=== PATIENT | male | born 1985 | race Two or more races ===

== ENCOUNTER 2022-02-05 08:57 | Inpatient (IN) | payer MEDICAID, OTHER ==
[~2022-02-05] VITALS: Ht 170.2 cm; Wt 59.0 kg
[2022-02-05] MEDS ORDERED: chlordiazePOXIDE HCL 5 MG CAP PO ONE (09:15)
[2022-02-05] MEDS ORDERED: THIAMINE 100mg/ml INJ (200mg/2ml VIAL) IV ONE (09:15)
[2022-02-05] MEDS ORDERED: SODIUM CHLORIDE 0.9% 1,000 ML IV ONE ×2 (09:15)
[2022-02-05 09:45] LABS: Basophils # (auto) 0.1 10 ^3/uL (0-0.2); Eosinophils # (auto) 0 10 ^3/uL (0-0.8); Eosinophils % (auto) 0.2 % (0.0-7.0); Hematocrit 47.3 % (41.0-53.0); Hemoglobin 16.1 g/dL (13.5-17.5); Lymphocytes % (auto) 18.1 % (10.0-50.0); Mean Corpuscular Hemoglobin 32.3 pg (28.0-32.0); Monocytes # (auto) 0.6 10 ^3/uL (0-1.3); Monocytes % (auto) 11.5 % (0.0-12.0); Neutrophils # (auto) 3.8 10 ^3/uL (1.6-8.6); Neutrophils % (auto) 69.2 % (37.0-80.0); Nucleated Red Blood Cells % 0.2 %; Red Blood Cells 4.98 10^6/uL (4.5-5.90); Red Cell Distribution Width 14.2 % (11.8-14.3); White Blood Cell 5.5 10^3/uL (4.4-10.8)
[2022-02-05 09:48] LABS: Urine Bacteria FEW /hpf (None Seen); Urine Blood Negative /uL (Negative); Urine Mucus MODERATE (None Seen); Urine Specific Gravity 1.035 (1.001-1.035); Urine WBC 1 /hpf (0 - 3)
[2022-02-05 10:02] LABS: Bilirubin, Total 4.2 mg/dL (0.2-1.0); Total Protein 7.8 g/dL (6.4-8.2)
[2022-02-05] MEDS ORDERED: METOCLOPRAMIDE HCL 5MG/ml INJ 2ml VIAL IV PRN (16:15)
[2022-02-05] MEDS ORDERED: ONDANSETRON HCL 4 MG/2 ML VIAL IV PRN (16:15)
[2022-02-05] MEDS ORDERED: THIAMINE HCL 100 MG TAB PO ONE (16:15)
[2022-02-05] MEDS ORDERED: FOLIC ACID 1 MG TAB PO ONE (16:15)
[2022-02-05] MEDS ORDERED: ACETAMINOPHEN 325 MG TAB PO PRN (16:15)
[2022-02-05] MEDS ORDERED: DOCUSATE SOD 100 MG CAP PO PRN (16:15)
[2022-02-05] MEDS ORDERED: HYDROcodone-ACET 5/325MG TAB PO PRN (16:15)
[2022-02-05] MEDS ORDERED: GADOTERATE MEG 7.5 MMOL/15ml INJ (0.5MMOL/ml) IV ONE (16:41)
[2022-02-05] MEDS: chlordiazePOXIDE HCL 25 MG CAP PO SCH (17:04)
[2022-02-05] MEDS: SODIUM CHLOR 0.9% PF (SALINE LOCK) 10ML VIAL/SYR IV SCH (23:27)
[2022-02-05] MEDS: PANTOPRAZOLE 40 MG TAB PO SCH (23:29)
[2022-02-06] VITALS (9 sets, daily range): BP systolic 116–132; BP diastolic 85–93
[2022-02-06] MEDS: chlordiazePOXIDE HCL 25 MG CAP PO SCH ×4 (00:03→21:28)
[2022-02-06] MEDS ORDERED: GLIP5TAB12 PO (01:10)
[2022-02-06] MEDS: SODIUM CHLOR 0.9% PF (SALINE LOCK) 10ML VIAL/SYR IV SCH ×3 (05:16→21:28)
[2022-02-06 05:49] LABS: INR 1.25 (0.9-1.15)
[2022-02-06 05:54] LABS: Calcium 8.6 mg/dL (8.5-10.1); Potassium 3.8 mmol/L (3.5-5.1)
[2022-02-06 06:00] LABS: Albumin 3.3 g/dL (3.4-5.0); Bilirubin, Total 2.9 mg/dL (0.2-1.0); Total Protein 6.5 g/dL (6.4-8.2)
[2022-02-06] MEDS: PANCREATIC ENZYMES 4200 UNIT CAP PO SCH ×3 (08:48→18:47)
[2022-02-06] MEDS: PANTOPRAZOLE 40 MG TAB PO SCH ×2 (09:35→21:28)
[2022-02-06] MEDS ORDERED: MULTIPLE VITAMINS W/ MINERALS TAB PO ONE (10:30)
[2022-02-06] MEDS ORDERED: THIAMINE 100mg/ml INJ (200mg/2ml VIAL) IV ONE (10:30)
[2022-02-06] MEDS ORDERED: METOCLOPRAMIDE HCL 5MG/ml INJ 2ml VIAL IV PRN (10:30)
[2022-02-06] MEDS: SODIUM CHLORIDE 0.9% 1,000 ML IV SCH (11:43)
[2022-02-07] MEDS: SODIUM CHLORIDE 0.9% 1,000 ML IV SCH (01:28)
[2022-02-07 04:36] VITALS: BP 136/89
[2022-02-07 06:14] LABS: Basophils # (auto) 0 10 ^3/uL (0-0.2); Basophils % (auto) 0.9 % (0.0-2.0); Eosinophils # (auto) 0.1 10 ^3/uL (0-0.8); Eosinophils % (auto) 2.6 % (0.0-7.0); Hematocrit 41.2 % (41.0-53.0); Hemoglobin 13.8 g/dL (13.5-17.5); Lymphocytes # (auto) 1.5 10 ^3/uL (0.4-5.4); Lymphocytes % (auto) 33.8 % (10.0-50.0); Mean Corpuscular Hemoglobin 31.8 pg (28.0-32.0); Mean Corpuscular Hgb Conc. 33.5 g/dL (32.0-36.0); Mean Corpuscular Volume 94.9 fL (80.0-100.0); Monocytes # (auto) 0.5 10 ^3/uL (0-1.3); Monocytes % (auto) 10.7 % (0.0-12.0); Neutrophils # (auto) 2.3 10 ^3/uL (1.6-8.6); Red Blood Cells 4.34 10^6/uL (4.5-5.90); Red Cell Distribution Width 13.6 % (11.8-14.3); White Blood Cell 4.4 10^3/uL (4.4-10.8)
[2022-02-07 06:39] LABS: Albumin 3.1 g/dL (3.4-5.0); Calcium 8.2 mg/dL (8.5-10.1); Magnesium 1.7 mg/dL (1.6-2.6); Potassium 3.7 mmol/L (3.5-5.1)
[2022-02-07 06:43] LABS: BUN/Creatinine Ratio 8.1; Bilirubin, Total 1.9 mg/dL (0.2-1.0); Phosphorus 3.3 mg/dL (2.5-4.90)
[2022-02-07 08:00] VITALS: BP 128/95
[2022-02-07] MEDS: PANCREATIC ENZYMES 4200 UNIT CAP PO SCH ×2 (08:53→12:00)
[2022-02-07] MEDS ORDERED: MULTIPLE VITAMINS W/ MINERALS TAB PO SCH (10:00)
[2022-02-07] MEDS ORDERED: THIAMINE 100mg/ml INJ (200mg/2ml VIAL) IV SCH (10:00)
[2022-02-07] MEDS ORDERED: chlordiazePOXIDE HCL 25 MG CAP PO SCH (10:00)
[2022-02-07] MEDS: PANTOPRAZOLE 40 MG TAB PO SCH (10:43)
[2022-02-07] MEDS ORDERED: PANC1CAP PO (10:58)
[2022-02-07] MEDS ORDERED: GABA300C10 PO (10:58)
[2022-02-07] MEDS ORDERED: PANT40TA2 PO (10:58)
[2022-02-07] MEDS ORDERED: MULT-351 GT (10:58)
[2022-02-07] MEDS ORDERED: GABAPENTIN 300 MG CAP PO ONE (11:15)
[2022-02-07 12:00] VITALS: BP 125/91
[2022-02-07 12:44] VITALS: BP 125/81
[2022-02-08] MEDS ORDERED: chlordiazePOXIDE HCL 25 MG CAP PO SCH (07:00)
== END 2022-02-07 14:39 | disposition home or self-care (01) | DRG 282 ==
LOC: ER 08:57 → TELE 16:33 → TELE-CENTR 23:35
PROVIDERS: ADMIT Internal Medicine; ATTEND Internal Medicine
DX: K85.90 Acute pancreatitis without necrosis or infection, unspecified (principal); F10.231 Alcohol dependence with withdrawal delirium; K70.40 Alcoholic hepatic failure without coma; Z20.822 Contact with and (suspected) exposure to COVID-19; E11.9 Type 2 diabetes mellitus without complications; K86.1 Other chronic pancreatitis; K86.3 Pseudocyst of pancreas; K76.0 Fatty (change of) liver, not elsewhere classified; Z79.899 Other long term (current) drug therapy
CPT/HCPCS: 36415; 71045; 74176; 74183; 76705; 80053; 81001; 83036; 83690; 83735; 84100; 84484; 85025; 85610; 96361; 96374; 99291; G0378

== ENCOUNTER 2022-05-26 22:00 | Emergency (ER) | payer MEDICAID ==
[~2022-05-26] VITALS: Ht 170.2 cm; Wt 59.0 kg
[~2022-05-26 22:00] MED LIST: GABA300C10 PO; GLIP5TAB12 PO; MULT-351 GT; PANC1CAP PO; PANT40TA2 PO
[2022-05-27 01:40] VITALS: BP 127/88
== END 2022-05-27 01:40 | disposition home or self-care (01) ==
LOC: ER 22:04
DX: S06.0X0A Concussion without loss of consciousness, initial encounter (principal); E11.9 Type 2 diabetes mellitus without complications; Z79.899 Other long term (current) drug therapy; W18.39XA Other fall on same level, initial encounter; Y93.89 Activity, other specified; Y92.89 Other specified places as the place of occurrence of the external cause; Y99.8 Other external cause status

== ENCOUNTER 2023-03-19 10:42 | Emergency (ER) | payer MEDICAID ==
[~2023-03-19] VITALS: Ht 170.2 cm; Wt 65.0 kg
[~2023-03-19 10:42] MED LIST changes: +GABA-1250 PO; -GABA300C10 PO
[2023-03-19 11:19] LABS: Basophils # (auto) 0.1 10 ^3/uL (0-0.2); Basophils % (auto) 1.4 % (0.0-2.0); Eosinophils # (auto) 0 10 ^3/uL (0-0.8); Eosinophils % (auto) 0.2 % (0.0-7.0); Hematocrit 47.3 % (41.0-53.0); Hemoglobin 15.9 g/dL (13.5-17.5); Lymphocytes # (auto) 1.2 10 ^3/uL (0.4-5.4); Lymphocytes % (auto) 15.4 % (10.0-50.0); Mean Corpuscular Hemoglobin 32.2 pg (28.0-32.0); Mean Corpuscular Hgb Conc. 33.6 g/dL (32.0-36.0); Mean Corpuscular Volume 95.7 fL (80.0-100.0); Monocytes % (auto) 12.9 % (0.0-12.0); Neutrophils # (auto) 5.3 10 ^3/uL (1.6-8.6); Neutrophils % (auto) 70.1 % (37.0-80.0); Nucleated Red Blood Cells % 0.1 %; Red Blood Cells 4.94 10^6/uL (4.5-5.90); Red Cell Distribution Width 14.2 % (11.8-14.3); White Blood Cell 7.6 10^3/uL (4.4-10.8)
[2023-03-19 11:25] VITALS: PULSE 103; RESP 20; O2SAT 98
[2023-03-19 11:34] VITALS: TEMP 98.2
[2023-03-19 11:41] LABS: Anion Gap 8 (5-15); Blood Alcohol < 3.0 mg/dL (<10); Blood Urea Nitrogen 4 mg/dL (7-18); Carbon Dioxide 30 mmol/L (21-32); Chloride 97 mmol/L (98-107); Glucose 188 mg/dL (74-106); Sodium 135 mmol/L (136-145)
[2023-03-19 11:44] LABS: Alanine Aminotransferase 57 U/L (16-61); Alkaline Phosphatase 171 U/L (45-117); Aspartate Aminotransferase 115 U/L (15-37); BUN/Creatinine Ratio 4.1 (10.0-20.0); Bilirubin, Total 3.7 mg/dL (0.2-1.0); GFR African American 111 mL/min; GFR Non-African American 92 mL/min
[2023-03-19 12:10] LABS: Barbiturate Scree,Urine NEGATIVE (NEGATIVE); Benzodiazephine Screen, Urine NEGATIVE (NEGATIVE); Cannabinoid Screen, Urine POSITIVE (NEGATIVE); Cocaine Screen, Urine POSITIVE (NEGATIVE); Opiate Scree,Urine NEGATIVE (NEGATIVE); Urine Bacteria NONE SEEN /hpf (None Seen); Urine Blood Negative /uL (Negative); Urine Clarity Clear (Clear); Urine Color Yellow (Yellow); Urine Mucus FEW (None Seen); Urine Protein, UAD TRACE (Negative); Urine Specific Gravity 1.033 (1.001-1.035); Urine WBC 1 /hpf (0 - 3)
[2023-03-19] MEDS ORDERED: LORazepam 2MG/ML-1ML VIAL IV ONE (12:15)
[2023-03-19 12:17] LABS: Amphetamine Screen, Urine NEGATIVE (NEGATIVE); Phencyclidine Screen, Urine NEGATIVE (NEGATIVE)
[2023-03-19] MEDS ORDERED: FOLIC ACID 1 MG, MULTIPLE VITAMIN 10 ML, MAGNESIUM SULF SDV 50% 8 MEQ, THIAMINE INJ 100... INJ SCH ×5 (13:45)
[2023-03-19] MEDS ORDERED: POTASSIUM EFFERVESENT TAB 25 MEQ PO ONE (15:00)
[2023-03-19] MEDS ORDERED: THIA100T10 PO (17:33)
[2023-03-19] MEDS ORDERED: CHL25C PO (17:33)
[2023-03-19] MEDS ORDERED: B CO PO (17:33)
[2023-03-19] MEDS ORDERED: PANT1INJ3 IV ×2 (17:33)
[2023-03-19 17:42] VITALS: BP 127/97; PULSE 91; RESP 18; O2SAT 95
[2023-03-19] MEDS ORDERED: PANT40TA2 PO (17:48)
== END 2023-03-19 17:56 | disposition home or self-care (01) ==
LOC: ER 10:42
DX: F10.139 Alcohol abuse with withdrawal, unspecified (principal); F12.10 Cannabis abuse, uncomplicated; E11.65 Type 2 diabetes mellitus with hyperglycemia; K76.0 Fatty (change of) liver, not elsewhere classified; E87.6 Hypokalemia; Z79.899 Other long term (current) drug therapy
CPT/HCPCS: 36415; 80053; 80307; 80320; 81001; 83690; 85025; 93005; 96365; 96366; 96375; 99285; J2060; J3411; J3475; J7030

== ENCOUNTER 2024-09-23 08:21 | Inpatient (IN) | payer MEDICAID ==
[~2024-09-23] VITALS: Ht 172.7 cm; Wt 60.6 kg
[~2024-09-23 08:21] MED LIST changes: +B CO PO; +CHL25C PO; -GLIP5TAB12 PO; +GLIP5TAB21 PO; +THIA100T10 PO
[2024-09-23 09:27] LABS: Basophils # (auto) 0 10 ^3/uL (0-0.2); Basophils % (auto) 0.6 % (0.0-2.0); Eosinophils # (auto) 0 10 ^3/uL (0-0.8); Hematocrit 43.4 % (41.0-53.0); Hemoglobin 14.7 g/dL (13.5-17.5); Lymphocytes # (auto) 0.3 10 ^3/uL (0.4-5.4); Lymphocytes % (auto) 4.2 % (10.0-50.0); Mean Corpuscular Hemoglobin 31.3 pg (28.0-32.0); Mean Corpuscular Hgb Conc. 33.9 g/dL (32.0-36.0); Mean Corpuscular Volume 92.5 fL (80.0-100.0); Monocytes # (auto) 0.4 10 ^3/uL (0-1.3); Monocytes % (auto) 5.9 % (0.0-12.0); Neutrophils # (auto) 6.4 10 ^3/uL (1.6-8.6); Neutrophils % (auto) 89.3 % (37.0-80.0); Nucleated Red Blood Cells % 0.1 %; Platelet Count (auto) 69 10^3/uL (140-450); Red Blood Cells 4.69 10^6/uL (4.5-5.90); White Blood Cell 7.1 10^3/uL (4.4-10.8)
--- NOTE | 2024-09-23 09:28 | ED.PDOC ---
GI ASSESSMENT HPI Comments 38 y/o MGHADA presents to the ED for CC of abdominal pain. Patieny states he has been experiencing epigastric abdominal pain with associated symptoms of nausea and vomiting x1day. Patient relays, he is currently withdrawing from ETOH; last time consuming [id number]. Patient comments on, having being bitten by a dog x10 days ago to the left posterior thigh states "I want it checked out". Patient has a visible bruise to the left forearm and left eye. Patient denies fever, chills, sweats, or diarrhea. No other symptoms or modifying factors at this time. Chief Complaint: Abdominal Pain Time Seen by MD: 08:30 Primary Care Provider: LETICIA Reviewed Notes: Nurses Notes, Observatory Director Notes, Medications, Allergies Allergies: Coded Allergies: NO KNOWN ALLERGIES (Unverified , 02/05/22) Home Meds Active Scripts Pantoprazole Sodium Sesquihydr (Protonix) 40 Mg Tab, 40 MG PO DAILY for 30 Days, #30 TAB Prov:JONEL RASHID MD 03/19/23 Thiamine Hcl (VITAMIN B-1) 100 Mg Tb, 100 MG PO BIDAC for 60 Days, #120 TAB Prov:JONEL RASHID MD 03/19/23 B-Complex W/ L-Crjeci-D-Minera (Dialyvite 5000) 5,000 Mg Tab, 5000 MG PO DAILY for 60 Days, #60 TAB Prov:JONEL RASHID MD 03/19/23 Chlordiazepoxide Hcl (Librium) 25 Mg Cp, 25 MG PO TID for 10 Days, #30 CAP Prov:JONEL RASHID MD 03/19/23 Gabapentin (Gabapentin) 300 Mg Cap, 300 MG PO BID for 30 Days, #60 CAP 2 Refills Prov:VALENTINO MEIER MD 02/07/22 Pantoprazole Sodium Sesquihydr (Protonix) 40 Mg Tab, 40 MG PO DAILY for 30 Days, #30 TAB 3 Refills Prov:VALENTINO MEIER MD 02/07/22 Pancreatic Enzymes (Pancreaze 2600 Unit) 1 Cap Cap, 1 CAP PO TID for 30 Days, #90 CAP 3 Refills Prov:VALENTINO MIEER MD 02/07/22 Multiple Vitamins W/ Minerals (Mvi W/ Minerals Tab) 1 Tab Tb, 1 TAB GT DAILY for 30 Days, #30 TAB 3 Refills Prov:VALENTINO MEIER MD 02/07/22 Reported Medications Glipizide (Glipizide) 5 Mg Tab, PO DAILY for 30 Days, MG 02/06/22 Information Source: Patient, Emergency Med Personnel Mode of Arrival: EMS Timing: Days Duration: Since onset Prehospital treatment: None Quality: None Vomitus: Watery Stool: Normal Severity: Mild Recent: None Recent Hx of: Diabetes Pain Location: Epigastric Associated sign and symptoms: Nausea, Vomiting, Abdominal Pain Past Medical History PAST MEDICAL HISTORY: DM Surgical History: Denies all surgeries Family History Family History: Reviewed,noncontributory to illness Social History Smoker: Non-Smoker Alcohol: Heavy Drugs: Marijuana Lives In: Home Constitutional: denies: chills, diaphoresis, fatigue, fever, malaise, sweats, weakness, others EENTM: denies: blurred vision, double vision, ear bleeding, ear discharge, ear drainage, ear pain, ear ringing, eye pain, eye redness, hearing loss, mouth pain, mouth swelling, nasal discharge, nose bleeding, nose congestion, nose pain, photophobia, tearing, throat pain, throat swelling, voice changes, others Respiratory: denies: cough, hemoptysis, orthopnea, SOB at rest, shortness of breath, SOB with excertion, stridor, wheezing, others Cardiovascular: denies: chest pain, dizzy spells, diaphoresis, Dyspnea on exertion, edema, irregular heart beat, left arm pain, lightheadedness, palpitations, PND, syncope, others Gastrointestinal: reports: nausea, vomiting Genitourinary: denies: burning, dysuria, flank pain, frequency, hematuria, incontinence, penile discharge, penile sore, pain, testicle pain, testicle swelling, urgency, others Neurological: denies: dizziness, fainting, headache, left sided numbness, left sided weakness, numbness, paresthesia, pre-existing deficit, right sided numbness, right sided weakness, seizure, speech problems, tingling, tremors, weakness, others Musculoskeletal: denies: back pain, gout, joint pain, joint swelling, muscle pain, muscle stiffness, neck pain, others Integumetry: denies: bruises, change in color, change in hair/nails, dryness, laceration, lesions, lumps, rash, wounds, others Allergic/Immunocompromised: denies: Difficulty Healing, Frequent Infections, Hives, Itching, others Hematologic/Lymphatic: denies: anemia, blood clots, easy bleeding, easy bruising, swollen glands, others Endocrine: denies: excessive hunger, excessive sweating, excessive thirst, excessive urination, flushing, intolerance to cold, intolerance to heat, unex plained weight gain, unexplained weight loss, others Psychiatric: denies: anxiety, bipolar disorder, depression, hopeless, panic disorder, schizophrenia, sleepless, suicidal, others All Other Systems: Reviewed and Negative Physical Exam General Appearance: Moderate Distress HEENT: Normal ENT Inspection, Pharynx Normal, TMs Normal Neck: Full Range of Motion, Non-Tender, Normal, Normal Inspection Respiratory: Chest Non-Tender, Lungs Clear, No Accessory Muscle Use, No Respiratory Distress, Normal Breath Sounds Cardiovascular: No Edema, No JVD, No Murmur, No Gallop, Normal Peripheral Pulses, Regular Rate/Rhythm Breast Exam: Deferred Gastrointestinal: No Organomegaly, Non Tender, No Pulsatile Mass, Normal Bowel Sounds, Soft Genitalia: Deferred Pelvic: Deferred Rectal: Deferred Extremities: No pedal edema Musculoskeletal : Apperance: Normal Neurologic: Alert, No Motor Deficits, No Sensory Deficits Cerebellar Function: NOT DONE Reflexes: NOT DONE Skin: Wounds (Dog bite left upper thigh) Peripheral Pulses: 3+ Radial (R), 3+ Radial (L) Lymphatic: No Adenopathy Was a procedure done? Was a procedure done?: No GI differential Dx Differential Diagnosis: Constipation, Diverticular disease, Esophagitis, Gastritis/PUD, Gastroenteritis, Drug toxicity, Electrolyte Imbalance, Food Poisoning, Bacterial, Viral X-Ray, Labs, Meds, VS Vital Signs Date Time Temp Pulse Resp B/P (MAP) Pulse Ox O2 Delivery O2 Flow Rate FiO2 09/23/24 08:30 98.6 108 16 138/68 (91) 96 Lab Test 09/23/24 09:12 Range/Units White Blood Count 7.1 4.4-10.8 10^3/uL Red Blood Count 4.69 4.5-5.90 10^6/uL Hemoglobin 14.7 13.5-17.5 g/dL Hematocrit 43.4 41.0-53.0 % Mean Corpuscular Volume 92.5 80.0-100.0 fL Mean Corpuscular Hemoglobin 31.3 28.0-32.0 pg Mean Corpuscular Hemoglobin Concent 33.9 32.0-36.0 g/dL Red Cell Distribution Width 17.0 H 11.8-14.3 % Platelet Count 69 L 140-450 10^3/uL Mean Platelet Volume 8.6 6.9-10.8 fL Neutrophils (%) (Auto) 89.3 H 37.0-80.0 % Lymphocytes (%) (Auto) 4.2 L 10.0-50.0 % Monocytes (%) (Auto) 5.9 0.0-12.0 % Eosinophils (%) (Auto) 0.0 0.0-7.0 % Basophils (%) (Auto) 0.6 0.0-2.0 % Neutrophils # (Auto) 6.4 1.6-8.6 10 ^3/uL Lymphocytes # (Auto) 0.3 L 0.4-5.4 10 ^3/uL Monocytes # (Auto) 0.4 0-1.3 10 ^3/uL Eosinophils # (Auto) 0 0-0.8 10 ^3/uL Basophils # (Auto) 0 0-0.2 10 ^3/uL Nucleated Red Blood Cells 0.1 % Sodium Level 139 136-145 mmol/L Potassium Level 4.8 3.5-5.1 mmol/L Chloride Level 88 L 98-107 mmol/L Carbon Dioxide Level 25 20-31 mmol/L Anion Gap 26 H 5-15 Blood Urea Nitrogen 26 H 9-23 mg/dL Creatinine 1.29 0.700-1.30 mg/dL Glomerular Filtration Rate Calc 72 >90 mL/min BUN/Creatinine Ratio 20.2 H 10.0-20.0 Serum Glucose 239 H 74-106 mg/dL Calcium Level 9.5 8.7-10.4 mg/dL Patient alert pain Continues to drink alcohol. Blood sugar elevated. Anion gap elevated. Establish intravenous access. Was given fluids. Has a wound in the left thigh caused by dog bite. Was given Zosyn. Was given insulin. Explained to the patient. Continue cardiac monitoring. Time of 1ST Reevaluation: 09:00 Reevaluation 1ST: Unchanged Patient Education/Counseling: Diagnosis, Treatment Family Education/Counseling: No Family Present Departure 1 Departure Time of Disposition: :57 Impression: Primary Impression: Uncontrolled diabetes mellitus Qualified Codes: E13.65 - Other specified diabetes mellitus with hyperglycemia Additional Impressions: DKA (diabetic ketoacidosis) Qualified Codes: E13.10 - Other specified diabetes mellitus with ketoacidosis without coma Visit for wound care Disposition: ADMITTED INPATIENT Admit to: Med Surg Condition: Guarded Critical Care Note Critical Care Time?: Yes (90 min-critical care time only) Critical care comment: Hyperglycemia fluids insulin Stability Stability form required: No Heart Score Heart Score: Heart Score Response (Comments) Value History N/A 0 EKG N/A 0 Age N/A 0 Risk Factors N/A 0 Troponin N/A 0 Total 0 I personally scribed for ANGEL BEASLEY MD ([email or web address]) on 09/23/24 at 09:28. Electronically submitted by Kiley Ba ([email or web address]). I personally scribed for ANGEL BEASLEY MD ([email or web address]) on 09/23/24 at 09:32. Electronically submitted by Kiley Ba ([email or web address]). ANGEL BEASLEY MD Sep 23, 2024 09:28
[2024-09-23 09:40] LABS: Potassium 4.8 mmol/L (3.5-5.1); Sodium 139 mmol/L (136-145)
[2024-09-23 09:41] LABS: Anion Gap 26 (5-15); Carbon Dioxide 25 mmol/L (20-31)
[2024-09-23 09:42] LABS: Calcium 9.5 mg/dL (8.7-10.4)
[2024-09-23 09:46] LABS: BUN/Creatinine Ratio 20.2 (10.0-20.0)
[2024-09-23 09:51] LABS: Blood Urea Nitrogen 26 mg/dL (9-23); Chloride 88 mmol/L (98-107); Glucose 239 mg/dL (74-106)
[2024-09-23] MEDS: PIPERACILLIN-TAZOB 3.375GM 100 ML IV ONE (10:00)
[2024-09-23] MEDS: InsuLIN REG 1unit/0.01ml Soln (100units/ml) IV ONE (10:00)
[2024-09-23] MEDS: SODIUM CHLORIDE 0.9% 1,000 ML IVB ONE (10:00)
[2024-09-23] MEDS: SODIUM CHLORIDE 0.9% 1,000 ML IV ONE (10:00)
[2024-09-23 10:23] LABS: Base Excess -3.2 mmol/L (-2.0-3.0)
[2024-09-23] MEDS: LORazepam 2MG/ML-1ML VIAL IV ONE (12:39)
--- NOTE | 2024-09-23 23:40 | DVHHPRES ---
History of Present Illness Resident Creating Document: NATHALIE ENNIS RESDIENT History of Present Illness This is a 38-year-old male with past medical history of diabetes, chronic pancreatitis (due to alcohol use disorder), alcohol use disorder (with history of delirium tremens ) came to the hospital due to nausea and vomiting since 1 day. Per patient he had 20 episodes of vomiting since yesterday. He also reports diffuse abdominal pain, generalized weakness and fatigue. Lab studies were significant for raised glucose at 400s, anion gap 26, with raised ketone bodies. PMHx: diabetes, chronic pancreatitis (due to alcohol use disorder), alcohol use disorder (with history of delirium tremens) Surgical history: Placed Pancreatic stent, due to chronic pancreatitis Family history: Has strong family history of diabetes in mom, dad and grand parents Social history: Patient vapes, drink alcohol, denies any other drug use. Home medication: Metformin, naltrexone, and atorvastatin Allergic history: No known allergies Review of Systems Review of Systems General: Reports generalized weakness and fatigue HEENT: No headaches, visiual changes, hearing loss, tinnitus, nasal congestion and discharge, and sore throat. Cardiovascular: Denies chest pain, palpitations, dyspnea on exertion, orthopnea, or claudication. Respiratory: No cough, and wheezing. Gastrointestinal: Reports nausea, vomiting and abdominal pain Genitourinary: No dysuria, hematuria, discharge, frequency, urgency, nocturia, incontinence, and urinary retention. Endocrine: No heat or cold intolerance, polydipsia, polyuria, and polyphagia. Neurological: No dizziness, extremity weakness and numbness, tremors, gait disturbance, seizures, and memory impairment. Psychiatric: Denies depression, anxiety,or insomnia. Musculoskeletal: Denies neck pain, stiffness and swelling, back pain, muscle weakness, joint pain, stiffness, swelling, or limited range of motion. Skin: No rashes, itching, skin lesion, changes in hair, nail, skin texture and breast. Hematologic/Lymphatic: Denies easy bruising, bleeding tendencies, or lymph node enlargement. Allergies: Coded Allergies: NO KNOWN ALLERGIES (Unverified , 02/05/22) Medications Current Medications Medications Dose Ordered Sig/Charlotte Route Start Time Stop Time Status Last Admin Dose Admin Nitroglycerin 0.4 mg Q5MINP PRN SL 09/23/24 23:45 UNV Morphine Sulfate 2 mg Q30M PRN IV 09/23/24 23:45 UNV Exam Vital Signs Vital Signs Date Time Temp Pulse Resp B/P (MAP) Pulse Ox O2 Delivery O2 Flow Rate FiO2 09/23/24 14:58 98.1 137 20 127/88 (101) 96 98.1 Exam General Appearance: Alert, Oriented X3, Cooperative, No acute distress HEENT: Atraumatic, PERRLA, EOMI, Mucous membrane moist/pink Respiratory: Clear to auscultation, Normal air movement Cardiovascular: Regular rate, Normal S1, Normal S2, No murmurs, no chest wall tenderness Abdominal: Normal bowel sounds, Soft, No tenderness, No hepatospenomegaly, No masses Extremities: No clubbing, No cyanosis, No edema, Normal pulses, No tenderness/swelling Skin: No rashes, No breakdown, No significant lesion Neuro: Normal gait, Normal speech, Strength at 5/5 X4 ext, Normal tone, Sensation intact, Cranial nerves 3-12 NL, Reflexes 2+ Psych/Mental Status: Mental status NL, Mood NL Labs/Xrays Labs Test 09/23/24 11:15 09/23/24 10:17 09/23/24 09:12 Range/Units POC Glucose 389 H 70-106 mg/dl Blood Gas Specimen Type Arterial Blood Gas Sample Site Right radial Blood Gas Patient Temperature 37.0 Arterial Blood Date Drawn [id number] Arterial Blood pH 7.438 7.350-7.450 Arterial Blood Partial Pressure CO2 29.7 L 35.0-48.0 mmHg Arterial Blood Partial Pressure O2 90.9 83.0-108.0 mmHg Arterial Blood HCO3 19.6 L 21.0-28.0 mmol/L Arterial Blood Oxygen Saturation 96.0 94.0-98.0 % Arterial Blood Base Excess -3.2 L -2.0-3.0 mmol/L Arterial Blood Oxyhemoglobin 94.3 94.0-98.0 % Arterial Blood Carboxyhemoglobin 1.1 0.5-1.5 % Arterial Blood Methemoglobin 0.7 0.0-1.5 % Albino Test Yes Blood Gas Total Hemoglobin 15.20 13.5-17.5 g/dL Blood Gas Modality Room air FiO2 % 21.0 White Blood Count 7.1 4.4-10.8 10^3/uL Red Blood Count 4.69 4.5-5.90 10^6/uL Hemoglobin 14.7 13.5-17.5 g/dL Hematocrit 43.4 41.0-53.0 % Mean Corpuscular Volume 92.5 80.0-100.0 fL Mean Corpuscular Hemoglobin 31.3 28.0-32.0 pg Mean Corpuscular Hemoglobin Concent 33.9 32.0-36.0 g/dL Red Cell Distribution Width 17.0 H 11.8-14.3 % Platelet Count 69 L 140-450 10^3/uL Mean Platelet Volume 8.6 6.9-10.8 fL Neutrophils (%) (Auto) 89.3 H 37.0-80.0 % Lymphocytes (%) (Auto) 4.2 L 10.0-50.0 % Monocytes (%) (Auto) 5.9 0.0-12.0 % Eosinophils (%) (Auto) 0.0 0.0-7.0 % Basophils (%) (Auto) 0.6 0.0-2.0 % Neutrophils # (Auto) 6.4 1.6-8.6 10 ^3/uL Lymphocytes # (Auto) 0.3 L 0.4-5.4 10 ^3/uL Monocytes # (Auto) 0.4 0-1.3 10 ^3/uL Eosinophils # (Auto) 0 0-0.8 10 ^3/uL Basophils # (Auto) 0 0-0.2 10 ^3/uL Nucleated Red Blood Cells 0.1 % Sodium Level 139 136-145 mmol/L Potassium Level 4.8 3.5-5.1 mmol/L Chloride Level 88 L 98-107 mmol/L Carbon Dioxide Level 25 20-31 mmol/L Anion Gap 26 H 5-15 Blood Urea Nitrogen 26 H 9-23 mg/dL Creatinine 1.29 0.700-1.30 mg/dL Glomerular Filtration Rate Calc 72 >90 mL/min BUN/Creatinine Ratio 20.2 H 10.0-20.0 Serum Glucose 239 H 74-106 mg/dL Calcium Level 9.5 8.7-10.4 mg/dL Beta-Hydroxybutyric Acid > 4.500 H < 0.4 mmol/L Assessment/Plan Assessment/Plan Diabetes mellitus type 2 with hyperglycemia Starvation ketosis Serum glucose is raised at 14, anion gap is raised at 26, beta hydroxybutyric acid raised at 4.5 IV fluid Insulin lantus Moderat insulin SS Chronic pancreatitis, due to alcohol use disorder Alcohol use disorder, CIWA protocol Dyslipidemia, continue atorvastatin History of dog bite Patient had the dog bite 1 month back, but had no ulcer, erosion or bleeding DIET: Diabetic diet DVT PROPHYLAXIS: Lovenox CODE STATUS: Full DISPOSITION: ICU status Patient's status and paln discussed with the patient Case discussed with Dr. Fuller. Plan discussed with: Patient, Other (RN) My Orders Orders - NATHALIE ENNIS RESDINIXON Procedure Category Date Status Time Admit ADMIT 09/23/24 Transmitted 23:35 Nitroglycerin PHA 09/23/24 Logged Sublingual (Ntrostat 23:45 Morphine Sulfate PHA 09/23/24 Logged Injection 23:45 Oxygen By Nasal RT 09/23/24 Transmitted Cannula 23:35 Stat Ekg For Chest MIROSLAVA 09/23/24 In Process Pain 23:35 Notify Md Of Changes [facility] 09/23/24 In Process From Base 23:35 Wet Machine Cutter For [facility] 09/23/24 In Process 24 Hours 23:35 Emergency Dysrhythmia [facility] 09/23/24 In Process Protocol 23:35 Rhythm Strips Once [facility] 09/23/24 In Process Every Shift 23:35 Date of Service: Sep 24, 2024 Billing Provider: EMMA FULLER MD Common Visit Codes: [id number] INP/OBS CARE (HIGH) NATHALIE ENNIS RESDIENT Sep 23, 2024 23:40 EMMA FULLER MD Sep 26, 2024 18:12
[2024-09-23] MEDS ORDERED: DEXTROSE (50%) 50ML SYRG IV PRN (23:45)
[2024-09-23] MEDS ORDERED: INSULIN DRIP 100 UNIT/100ML 100 ML IV SCH (23:45)
[2024-09-23] MEDS ORDERED: NITROGLYCERIN 0.4 MG SL TAB SL PRN (23:45)
[2024-09-23] MEDS ORDERED: POTASSIUM CHL 20MEQ/100ML 100 ML IV SCH (23:45)
[2024-09-23] MEDS ORDERED: MORPHINE SULFATE INJ 2 MG/ml SYRG IV PRN (23:45)
[2024-09-24 00:12] LABS: Potassium 3.9 mmol/L (3.5-5.1)
[2024-09-24 00:13] LABS: Anion Gap 12 (5-15); Calcium 9.4 mg/dL (8.7-10.4)
[2024-09-24 00:16] LABS: Carbon Dioxide 32 mmol/L (20-31); Chloride 86 mmol/L (98-107); Sodium 130 mmol/L (136-145)
[2024-09-24 00:18] LABS: BUN/Creatinine Ratio 16.7 (10.0-20.0); Blood Urea Nitrogen 20 mg/dL (9-23)
[2024-09-24 00:19] LABS: Magnesium 1.9 mg/dL (1.6-2.6)
[2024-09-24 00:20] LABS: Glucose 414 mg/dL (74-106); Phosphorus 2.6 mg/dL (2.4-5.1)
[2024-09-24] MEDS: ACCU-CHEK COMFORT CURVE STRIP VI SCH ×2 (01:14→05:39)
[2024-09-24 01:15] VITALS: PULSE 86; RESP 18; O2SAT 98
[2024-09-24] MEDS ORDERED: ENOXAPARIN SOD 40 MG/0.4 ML SYRINGE SC ONE (01:30)
[2024-09-24] MEDS ORDERED: ONDANSETRON HCL 4 MG/2 ML VIAL IV PRN (01:30)
[2024-09-24] MEDS: SODIUM CHLORIDE 0.9% 2,000 ML IV ONE (01:33)
[2024-09-24] MEDS: POTASSIUM CHL 20MEQ/100ML 100 ML IV SCH (01:52)
[2024-09-24] MEDS: LORazepam 2MG/ML-1ML VIAL IV PRN (01:55)
[2024-09-24] MEDS: ONDANSETRON HCL 4 MG/2 ML VIAL IV ONE (01:55)
[2024-09-24] MEDS ORDERED: DEXTROSE (50%) 50ML SYRG IV PRN (02:30)
[2024-09-24] MEDS: INSULIN LANTUS (GLARGINE) 1 /0.01ml (100units/ml) SC ONE (02:44)
[2024-09-24] MEDS: ATORVASTATIN 20 MG TAB PO ONE (04:04)
[2024-09-24] MEDS: InsuLIN REG 1unit/0.01ml Soln (100units/ml) SC SCH (05:39)
[2024-09-24] MEDS: chlordiazePOXIDE HCL 25 MG CAP PO SCH ×2 (05:39→21:25)
[2024-09-24] MEDS: MAGNESIUM SULFATE 1GM/100ML 100 ML IV ONE (06:19)
[2024-09-24] MEDS: FOLIC ACID 1 MG in D5W 5% 50 ML INJ ONE (06:58)
[2024-09-24] MEDS ORDERED: THIAMINE HCL 100 MG TAB PO SCH (07:00)
--- NOTE | 2024-09-24 07:09 | DVH ---
INDICATION: Abdominal Pain TECHNIQUE: Multiple real-time sonographic images of the abdomen were obtained. COMPARISON: ABPL on DOS: 02/05/22 FINDINGS: The liver is increased in echogenicity. The liver measures 18.8 cm. No intrahepatic biliar y ductal dilatation is noted. The gallbladder wall measures 0.2 cm and is unremarkable. No gallstones. Sludge is seen. The comm on duct measures 1.0 cm. Trace pericholecystic fluid is noted. Negative sonographic Carlton's sign. The right kidney measures 9.9 cm. No hydronephrosis. The left kidney measures 10.0 cm. No hydroneph rosis. The spleen measures 8.6 cm, within normal limits. The echogenicity is within normal limits. The pancreas is not well visualized due to obscuration from bowel gas. The visualized portions of the IVC and aorta are grossly unremarkable. IMPRESSION: 1. Gallbladder sludge. No findings to suggest acute cholecystitis. 2. Dilated common bile duct without filling defect of uncertain etiology. MRCP may be obtained if cl inically warranted. 3. Hepatomegaly and hepatic steatosis.
[2024-09-24 07:13] LABS: Basophils # (auto) 0 10 ^3/uL (0-0.2); Basophils % (auto) 0.5 % (0.0-2.0); Eosinophils # (auto) 0 10 ^3/uL (0-0.8); Eosinophils % (auto) 0.2 % (0.0-7.0); Hematocrit 34.4 % (41.0-53.0); Hemoglobin 11.7 g/dL (13.5-17.5); Lymphocytes % (auto) 16.1 % (10.0-50.0); Mean Corpuscular Hemoglobin 31.2 pg (28.0-32.0); Mean Corpuscular Hgb Conc. 33.9 g/dL (32.0-36.0); Mean Corpuscular Volume 92.1 fL (80.0-100.0); Monocytes # (auto) 0.6 10 ^3/uL (0-1.3); Neutrophils # (auto) 4.3 10 ^3/uL (1.6-8.6); Neutrophils % (auto) 73.2 % (37.0-80.0); Platelet Count (auto) 47 10^3/uL (140-450); Red Blood Cells 3.73 10^6/uL (4.5-5.90); Red Cell Distribution Width 16.9 % (11.8-14.3); White Blood Cell 5.9 10^3/uL (4.4-10.8)
[2024-09-24 07:22] LABS: Albumin 4.2 g/dL (3.2-4.8); Alkaline Phosphatase 100 U/L (46-116); Anion Gap 10 (5-15); BUN/Creatinine Ratio 13.6 (10.0-20.0); Blood Alcohol 78.1 mg/dL (<10); Blood Urea Nitrogen 14 mg/dL (9-23); Calcium 9.4 mg/dL (8.7-10.4); Cholesterol 190 mg/dL (< 200); LDL Cholesterol 87 mg/dL (< 100); Triglycerides 53 mg/dL (< 150)
[2024-09-24 07:23] LABS: Alanine Aminotransferase 83 U/L (7-40); Aspartate Aminotransferase 127 U/L (13-40); Carbon Dioxide 31 mmol/L (20-31); Chloride 93 mmol/L (98-107); Glucose 139 mg/dL (74-106); HDL Cholesterol 76 mg/dL (40-59); Potassium 3.5 mmol/L (3.5-5.1); Sodium 134 mmol/L (136-145); Total Protein 6.4 g/dL (5.7-8.2)
[2024-09-24 07:24] LABS: Bilirubin, Total 1.4 mg/dL (0.2-1.0)
[2024-09-24 07:43] LABS: Lipase 125 U/L (12-53)
[2024-09-24 08:00] VITALS: PULSE 108; RESP 19; O2SAT 96
[2024-09-24] MEDS: PANTOPRAZOLE 40 MG TAB PO SCH (09:51)
[2024-09-24] MEDS: GABAPENTIN 300 MG CAP PO SCH (09:51)
[2024-09-24] MEDS ORDERED: PANTOPRAZOLE 40 MG TAB PO SCH (10:00)
[2024-09-24] MEDS ORDERED: ENOXAPARIN SOD 40 MG/0.4 ML SYRINGE SC SCH (10:00)
[2024-09-24] MEDS ORDERED: MULTIPLE VITAMINS W/ MINERALS TAB GT SCH (10:00)
[2024-09-24] MEDS: LACTATED RINGER'S 1,000 ML IV SCH (12:41)
[2024-09-24 12:57] LABS: INR 0.97 (0.9-1.15); Partial Thromboplastin Time 28.8 SEC (24.5-34.5); Prothrombin Time 10.3 sec (9.3-11.8)
[2024-09-24] MEDS: THIAMINE INJ 500 MG in D5W 5% 50 ML IV SCH (14:00)
[2024-09-24] MEDS: chlordiazePOXIDE HCL 25 MG CAP PO ONE (15:56)
--- NOTE | 2024-09-24 16:56 | DVHPNRES ---
Progress Note Date Seen: Sep 24, 2024 Resident Creating Document: HODA GARIBAYFARA RESIDENT Medical Necessity Reason Pt with a Central, PICC or Fol: No Subjective Review of Systems Patient 38-year-old male with a past medical history of type 2 diabetes mellitus, multiple acute pancreatitis,? Chronic pancreatitis came to the ED with a chief complaint of multiple episodes of vomiting for 12 hours prior to admission. Patient reported that he has been drinking about bottle of vodka every day and on Friday night he started to have vomiting, about 20 episodes till the morning, initially vomitus had undigested food but later just pale liquid, no blood and he was not able to keep even water down. Patient reported diffuse abdominal pain, generalized weakness and fatigue. Patient reports that he had 1st attack of pancreatitis in 2016, another in 2019 when he was transferred to [facility] [place] where they put "a stent in his duct". Patient denied loose stools, blood in his stools. On admission patient was noted to have a high blood sugar, anion gap 26, serum bicarb 25, elevated beta hydroxybutyrate. Past medical history: type 2 diabetes mellitus, multiple acute pancreatitis,? Chronic pancreatitis Past surgical history: ?CBD stent Social history: Patient reportedly drinks about half a bottle of vodka every day, denies smoking, other drug use Home medications: Metformin Review of systems Patient seen and examined at bedside Reports mild right upper quadrant discomfort Reports mildly anxious No nausea or vomiting No dizziness, palpitations, hallucinations, agitation, headache Objective vital signs Vital Sign Date Time Temp Pulse Resp B/P (MAP) Pulse Ox O2 Delivery O2 Flow Rate FiO2 09/24/24 16:00 98 16 133/88 (103) 98 09/24/24 12:30 97.8 97.8 09/24/24 08:00 Room Air* 0 21 Total Intake and Output 09/23/24 09/23/24 09/24/24 15:00 23:00 07:00 Intake Total 1100 ml 2200 ml Balance 1100 ml 2200 ml medications Current Medications Medications Dose Ordered Sig/Charlotte Route Start Time Stop Time Status Last Admin Dose Admin Nitroglycerin 0.4 mg Q5MINP PRN SL 09/23/24 23:45 Morphine Sulfate 2 mg Q30M PRN IV 09/23/24 23:45 Ondansetron HCl 4 mg Q4HPRN PRN IV 09/24/24 01:30 Lorazepam 1 mg Q6HP PRN IV 09/24/24 01:30 09/24/24 10:14 1 MG Diagnostic Test (Pha) 1 strip Q6HR 09/24/24 06:00 09/24/24 16:30 1 STRIP Insulin Human Regular Q6HR SC 09/24/24 06:00 09/24/24 05:39 3 UNITS Dextrose 50 ml UD PRN IV 09/24/24 02:30 Gabapentin 300 mg BID PO 09/24/24 10:00 09/24/24 09:51 300 MG Pantoprazole Sodium 40 mg DAILY PO 09/24/24 10:00 09/24/24 09:51 40 MG Atorvastatin Calcium 40 mg HS PO 09/24/24 22:00 Folic Acid 1 mg/ Dextrose 50.2 ml @ 200.8 mls/ hr DAILY INJ 09/25/24 10:00 Thiamine HCl 500 mg/Dextrose 55 ml @ 100 mls/hr TID IV 09/24/24 14:00 09/26/24 06:32 09/24/24 14:00 100 MLS/HR Lactated Ringer's 1,000 ml @ 100 mls/hr Q10H IV 09/24/24 12:15 09/24/24 12:41 100 MLS/HR Chlordiazepoxide HCl 25 mg BID PO 09/24/24 22:00 Examination Physical Examination Constitutional: Patient is alert and oriented to place, person but disoriented to date by more than 2 days. Does not appear to be in acute discomfort Gen - no pallor, no icterus, no cyanosis, no clubbing, no LAD, no edema . Skin - Patients skin is warm and dry. HEENT - normocephalic, atraumatic, dry mucous membranes. Neck - full ROM, no LAD, no JVD Pulmonary - B/L vesicular breath sounds. no crackles , no wheezing cardiovascular - normal S1,S2 heard. no murmurs heard. GI - soft abdomen without tenderness to palpation. no hepatospleenomegaly. Carlton sign negative, normoactive bowel sounds Neurological - Bilateral upper extremity strength 5/5, bilateral lower extremity strength 5/5, no facial droop, normal speech, tremors seen when the patient extends his arms, no sensory deficiets. laboratory and microbiology Laboratory Tests 09/24/24 06:18 Test 09/24/24 06:18 Range/Units Serum Glucose 139 #H 74-106 mg/dL Problem List/Assessment/Plan Problem List/Assessment/Plan Assessment Acute intractable nausea and vomiting Acute abdominal pain Starvation ketosis Type 2 diabetes mellitus hyperglycemia Acute pancreatitis unlikely h/o chronic pancreatitis likely due to alcohol use disorder, status post stent in ?CBD Alcohol withdrawal Hepatic steatosis Transaminitis Abdominal ultrasound shows gallbladder sludge, no findings to suggest acute cholecystitis, common bile duct measures 1 cm without filling defect, hepatomegaly and hepatic steatosis HbA1c 7.1% ABG showed pH 7.43, HC03 19.6, pCO2 29.7 Plan - IV fluids - thiamine 500 mg IV t.i.d. - Protonix - folic acid 1 mg daily - chlordiazepoxide 25 mg b.i.d - moderate insulin sliding scale - tolerated clear liquid diet well, advanced to full liquids for dinner Goals of care discussed with the patient for over 23 minutes. Full code Plan discussed with Dr. Fuller Plan discussed with: Patient My Orders My Orders Orders - RAKESH GAIRBAY Procedure Category Date Status Time Lactated Ringer's PHA 09/24/24 In Process 12:15 Clear Liq Diet DIET 09/24/24 Transmitted Lunch Chlordiazepoxide Hcl PHA 09/24/24 In Process Capsule (Librium Ca 22:00 Date of Service: Sep 24, 2024 Billing Provider: EMMA FULLER MD Common Visit Codes: [id number] INP/OBS CARE(MOD) RAKESH GARIBAY Sep 24, 2024 16:56 EMMA FULLER MD Sep 26, 2024 18:13
[2024-09-24 17:52] VITALS: BP 130/59; PULSE 107; RESP 20; TEMP 97.8; O2SAT 91
[2024-09-24 18:47] VITALS: BP 130/59; PULSE 107; RESP 20; TEMP 97.8; O2SAT 91
[2024-09-24 20:00] VITALS: PULSE 75; PULSE 84; RESP 18; O2SAT 96
[2024-09-24 20:31] VITALS: BP 136/96; PULSE 95; RESP 19; TEMP 99.3; O2SAT 96
[2024-09-24] MEDS: ATORVASTATIN 20 MG TAB PO SCH (21:26)
[2024-09-24] MEDS: INSULIN LANTUS (GLARGINE) 1 /0.01ml (100units/ml) SC SCH (22:00)
[2024-09-25 00:58] VITALS: BP 135/78; PULSE 107; RESP 19; TEMP 99.4; O2SAT 97
[2024-09-25 04:30] VITALS: BP 120/75; PULSE 122; RESP 19; TEMP 98.4; O2SAT 98
[2024-09-25 06:51] LABS: Basophils # (auto) 0 10 ^3/uL (0-0.2); Neutrophils # (auto) 4.7 10 ^3/uL (1.6-8.6)
[2024-09-25 06:54] LABS: Basophils % (auto) 0.5 % (0.0-2.0); Eosinophils # (auto) 0.1 10 ^3/uL (0-0.8); Eosinophils % (auto) 0.9 % (0.0-7.0); Hematocrit 36.3 % (41.0-53.0); Hemoglobin 12.4 g/dL (13.5-17.5); Lymphocytes % (auto) 15.6 % (10.0-50.0); Mean Corpuscular Hemoglobin 31.6 pg (28.0-32.0); Mean Corpuscular Hgb Conc. 34.1 g/dL (32.0-36.0); Mean Corpuscular Volume 92.8 fL (80.0-100.0); Monocytes # (auto) 0.6 10 ^3/uL (0-1.3); Nucleated Red Blood Cells % 0.1 %; Platelet Count (auto) 55 10^3/uL (140-450); Red Blood Cells 3.91 10^6/uL (4.5-5.90); Red Cell Distribution Width 16.6 % (11.8-14.3); White Blood Cell 6.4 10^3/uL (4.4-10.8)
[2024-09-25 07:05] LABS: Calcium 9.8 mg/dL (8.7-10.4); Potassium 3.7 mmol/L (3.5-5.1)
[2024-09-25 07:07] LABS: Anion Gap 10 (5-15); Carbon Dioxide 27 mmol/L (20-31)
[2024-09-25 07:12] LABS: BUN/Creatinine Ratio 9.4 (10.0-20.0); Blood Urea Nitrogen 10 mg/dL (9-23)
[2024-09-25 07:14] LABS: Chloride 94 mmol/L (98-107); Glucose 70 mg/dL (74-106); Sodium 131 mmol/L (136-145)
[2024-09-25 08:00] VITALS: PULSE 136
[2024-09-25] MEDS: FOLIC ACID 1 MG in D5W 5% 50 ML INJ SCH (09:04)
[2024-09-25] MEDS ORDERED: CHL10C PO (09:32)
--- NOTE | 2024-09-25 09:33 | DVHDS2 ---
Discharge Summary Date of Admission Sep 23, 2024 at 23:35 Date of Discharge: Sep 25, 2024 Labs/Diagnostic Data: Laboratory Results Test 09/25/24 06:32 09/25/24 05:28 09/24/24 08:18 09/24/24 06:18 POC Glucose 95 mg/dl (70-106) White Blood Count 6.4 10^3/uL (4.4-10.8) Red Blood Count 3.91 10^6/uL (4.5-5.90) Hemoglobin 12.4 g/dL (13.5-17.5) Hematocrit 36.3 % (41.0-53.0) Mean Corpuscular Volume 92.8 fL (80.0-100.0) Mean Corpuscular Hemoglobin 31.6 pg (28.0-32.0) Mean Corpuscular Hemoglobin Concent 34.1 g/dL (32.0-36.0) Red Cell Distribution Width 16.6 % (11.8-14.3) Platelet Count 55 10^3/uL (140-450) Mean Platelet Volume 9.6 fL (6.9-10.8) Neutrophils (%) (Auto) 74.0 % (37.0-80.0) Lymphocytes (%) (Auto) 15.6 % (10.0-50.0) Monocytes (%) (Auto) 9.0 % (0.0-12.0) Eosinophils (%) (Auto) 0.9 % (0.0-7.0) Basophils (%) (Auto) 0.5 % (0.0-2.0) Neutrophils # (Auto) 4.7 10 ^3/uL (1.6-8.6) Lymphocytes # (Auto) 1.0 10 ^3/uL (0.4-5.4) Monocytes # (Auto) 0.6 10 ^3/uL (0-1.3) Eosinophils # (Auto) 0.1 10 ^3/uL (0-0.8) Basophils # (Auto) 0 10 ^3/uL (0-0.2) Nucleated Red Blood Cells 0.1 % Sodium Level 131 mmol/L (136-145) Potassium Level 3.7 mmol/L (3.5-5.1) Chloride Level 94 mmol/L (98-107) Carbon Dioxide Level 27 mmol/L (20-31) Anion Gap 10 (5-15) Blood Urea Nitrogen 10 mg/dL (9-23) Creatinine 1.06 mg/dL (0.700-1.30) Glomerular Filtration Rate Calc 92 mL/min (>90) BUN/Creatinine Ratio 9.4 (10.0-20.0) Serum Glucose 70 mg/dL (74-106) Calcium Level 9.8 mg/dL (8.7-10.4) Magnesium Level 1.8 mg/dL (1.6-2.6) Prothrombin Time 10.3 sec (9.3-11.8) Prothrombin Time INR 0.97 (0.9-1.15) Activated Partial Thromboplast Time 28.8 SEC (24.5-34.5) Hemoglobin A1c 7.1 % A1C (<5.7) Total Bilirubin 1.4 mg/dL (0.2-1.0) Aspartate Amino Transferase (AST) 127 U/L (13-40) Alanine Aminotransferase (ALT) 83 U/L (7-40) Alkaline Phosphatase 100 U/L (46-116) Total Protein 6.4 g/dL (5.7-8.2) Albumin 4.2 g/dL (3.2-4.8) Triglycerides Level 53 mg/dL (< 150) Cholesterol Level 190 mg/dL (< 200) LDL Cholesterol 87 mg/dL (< 100) HDL Cholesterol 76 mg/dL (40-59) Lipase 125 U/L (12-53) Beta-Hydroxybutyric Acid 0.586 mmol/L (< 0.4) Plasma/Serum Blood Alcohol 78.1 mg/dL (<10) Test 09/23/24 23:50 09/23/24 10:17 Serum Osmolality 359 mOsm/kg (278-298) Phosphorus Level 2.6 mg/dL (2.4-5.1) Blood Gas Specimen Type Arterial Blood Gas Sample Site Right radial Blood Gas Patient Temperature 37.0 Arterial Blood Date Drawn [id number] Arterial Blood pH 7.438 (7.350-7.450) Arterial Blood Partial Pressure CO2 29.7 mmHg (35.0-48.0) Arterial Blood Partial Pressure O2 90.9 mmHg (83.0-108.0) Arterial Blood HCO3 19.6 mmol/L (21.0-28.0) Arterial Blood Oxygen Saturation 96.0 % (94.0-98.0) Arterial Blood Base Excess -3.2 mmol/L (-2.0-3.0) Arterial Blood Oxyhemoglobin 94.3 % (94.0-98.0) Arterial Blood Carboxyhemoglobin 1.1 % (0.5-1.5) Arterial Blood Methemoglobin 0.7 % (0.0-1.5) Albino Test Yes Blood Gas Total Hemoglobin 15.20 g/dL (13.5-17.5) Blood Gas Modality Room air FiO2 % 21.0 Other Laboratory Tests 09/25/24 05:28 Brief Hx & Hospital Course: 38 M with alcohol use and NIDDM admitted for hyperglycemia with starvation ketosis and alcohol withdrawal. started on librium and given insulin with improvement to nause vomiting. discharged with oral meds and to continue home meds. follow up with PCP Condition at Discharge: Good Final Diagnosis/Problems List Acute intractable nausea and vomiting Acute abdominal pain Starvation ketosis Type 2 diabetes mellitus hyperglycemia Acute pancreatitis unlikely h/o chronic pancreatitis likely due to alcohol use disorder, status post stent in ?CBD Alcohol withdrawal Hepatic steatosis Transaminitis Discharge Disposition: Home 35 Discharge Statement: "Patient was advised to return to the ER or call 911 if any headaches, dizziness, shortness of breath, chest pain, abdominal pain, bleeding, fevers, or worsening of medical condition. Patient was counseled about treatment plan, medications, possible side effects, patientverbalized understanding. All questions were answered to the best of my ability. This discharge took greater then 30 minutes in planning, reviewing documentation, counseling the patient, and discussing with other team members." ASSESSMENT ASSESSMENT Assessment Date of Service: Sep 25, 2024 Billing Provider: EMMA FULLER MD Common Visit Codes: 50235-DGI/OBS DISCH DAY >30min EMMA FULLER MD Sep 25, 2024 09:33
[2024-09-25 09:36] VITALS: BP 111/68; PULSE 53; RESP 16; TEMP 99.5; O2SAT 93
[2024-09-25] MEDS: SODIUM CHLORIDE 0.9% 1,000 ML IV ONE (11:10)
[2024-09-25] MEDS: InsuLIN REG 1unit/0.01ml Soln (100units/ml) SC SCH (11:24)
[2024-09-25 13:29] VITALS: TEMP 37.5
== END 2024-09-25 13:53 | disposition home or self-care (01) | DRG 815 ==
LOC: EDBD 08:21 → ER 08:21 → TELE 23:35 → TELE-CENTR 09-24 17:53
PROVIDERS: ADMIT Student in an Organized Health Care Education/Training Program; ATTEND Student in an Organized Health Care Education/Training Program
DX: T73.0XXA Starvation, initial encounter (principal); E88.89 Other specified metabolic disorders; K76.0 Fatty (change of) liver, not elsewhere classified; E11.65 Type 2 diabetes mellitus with hyperglycemia; K86.0 Alcohol-induced chronic pancreatitis; R74.01 Elevation of levels of liver transaminase levels; F10.139 Alcohol abuse with withdrawal, unspecified; Z79.4 Long term (current) use of insulin; Z83.3 Family history of diabetes mellitus; Z79.899 Other long term (current) drug therapy; Y90.9 Presence of alcohol in blood, level not specified
CPT/HCPCS: 36415; 36600; 76700; 80048; 80053; 80061; 80320; 82010; 82805; 82962; 83036; 83690; 83735; 83930; 84100; 85025; 85610; 85730; 96365; 96375; 99291; 99292; G0378; J1815; J2543; J3480; J7060

== ENCOUNTER 2024-10-19 21:48 | Inpatient (IN) | payer MEDICAID ==
[2024-10-18] MEDS: SODIUM CHLORIDE 0.9% 1,000 ML IV ONE (23:51)
[~2024-10-19] VITALS: Ht 167.6 cm; Wt 59.5 kg
[~2024-10-19 21:48] MED LIST changes: +CHL10C PO; -CHL25C PO
--- NOTE | 2024-10-19 22:19 | ED.PDOC ---
History of Present Illness HPI Comments 38 year old male brought in by EMS presents to the ED with a chief complaint of head injury s/p fall onset today (10/19/24). Per EMS, patient was found on bathroom floor, unconscious, immediately began compressions. Upon EMS arrival, patient was moving arms and responsive, 4 mg Narcan was given, lost about 150 ml blood from head laceration. Patient states he was getting out of shower when he slipped, fell and hit his head. Patient also states he was drinking ETOH today, does marihuana and cocaine but denies any use today. He is currently experiencing headache, chest pain due to compressions. PMHx DM. Denies dizziness, nausea, vomiting, diarrhea, abdominal pain, shortness of breath, fe vers, chills. No other symptoms or modifying factors present at this time. Chief Complaint: Fall Injury Time Seen by MD: 21:55 Primary Care Provider: LETICIA Reviewed Notes: Medications, Allergies Allergies: Coded Allergies: NO KNOWN ALLERGIES (Unverified , 02/05/22) Home Meds Active Scripts Chlordiazepoxide Hcl (Ni-1) (I (Librium) 10 Mg Cap, 10 MG PO BID for 4 Days, #8 CAP Prov:EMMA FULLER MD 09/25/24 Pantoprazole Sodium Sesquihydr (Protonix) 40 Mg Tab, 40 MG PO DAILY for 30 Days, #30 TAB Prov:JONEL RASHID MD 03/19/23 Thiamine Hcl (VITAMIN B-1) 100 Mg Tb, 100 MG PO BIDAC for 60 Days, #120 TAB Prov:JONEL RASHID MD 03/19/23 B-Complex W/ N-Exjxhu-O-Minera (Dialyvite 5000) 5,000 Mg Tab, 5000 MG PO DAILY for 60 Days, #60 TAB Prov:JONEL RASHID MD 03/19/23 Gabapentin (Gabapentin) 300 Mg Cap, 300 MG PO BID for 30 Days, #60 CAP 2 Refills Prov:VALENTINO MEIER MD 02/07/22 Pantoprazole Sodium Sesquihydr (Protonix) 40 Mg Tab, 40 MG PO DAILY for 30 Days, #30 TAB 3 Refills Prov:VALENTINO MEIER MD 02/07/22 Pancreatic Enzymes (Pancreaze 2600 Unit) 1 Cap Cap, 1 CAP PO TID for 30 Days, #90 CAP 3 Refills Prov:VALENTINO MEIER MD 02/07/22 Multiple Vitamins W/ Minerals (Mvi W/ Minerals Tab) 1 Tab Tb, 1 TAB GT DAILY for 30 Days, #30 TAB 3 Refills Prov:VALENTINO MEIER MD 02/07/22 Reported Medications Glipizide (Glipizide) 5 Mg Tab, PO DAILY for 30 Days, MG 02/06/22 Information Source: Patient, Emergency Med Personnel Mode of Arrival: EMS Severity: Moderate Timing: Hours Duration: Since onset Prehospital treatment: [facility] Past Medical History PAST MEDICAL HISTORY: DM Surgical History: Denies all surgeries Family History Family History: Reviewed,noncontributory to illness Social History Smoker: Non-Smoker Alcohol: Heavy Drugs: Cocaine, Marijuana Lives In: Home Constitutional: denies: chills, diaphoresis, fatigue, fever, malaise, sweats, weakness, others EENTM: denies: blurred vision, double vision, ear bleeding, ear discharge, ear drainage, ear pain, ear ringing, eye pain, eye redness, hearing loss, mouth pain, mouth swelling, nasal discharge, nose bleeding, nose congestion, nose pain, photophobia, tearing, throat pain, throat swelling, voice changes, others Respiratory: denies: cough, hemoptysis, orthopnea, SOB at rest, shortness of breath, SOB with excertion, stridor, wheezing, others Cardiovascular: reports: chest pain; denies: dizzy spells, diaphoresis, Dyspnea on exertion, edema, irregular heart beat, left arm pain, lightheadedness, palpitations, PND, syncope, others Gastrointestinal: denies: abdomen distended, abdominal pain, blood streaked bowels, constipated, diarrhea, dysphagia, difficulty swallowing, hematemesis, melena, nausea, poor appetite, poor fluid intake, rectal bleeding, rectal pain, vomiting, others Genitourinary: denies: burning, dysuria, flank pain, frequency, hematuria, incontinence, penile discharge, penile sore, pain, testicle pain, testicle swelling, urgency, others Neurological: reports: headache; denies: dizziness, fainting, left sided numbness, left sided weakness, numbness, paresthesia, pre-existing deficit, right sided numbness, right sided weakness, seizure, speech problems, tingling, tremors, weakness, others Musculoskeletal: denies: back pain, gout, joint pain, joint swelling, muscle pain, muscle stiffness, neck pain, others Integumetry: reports: laceration (head); denies: bruises, change in color, change in hair/nails, dryness, lesions, lumps, rash, wounds, others Allergic/Immunocompromised: denies: Difficulty Healing, Frequent Infections, Hives, Itching, others Hematologic/Lymphatic: denies: anemia, blood clots, easy bleeding, easy bruising, swollen glands, others Endocrine: denies: excessive hunger, excessive sweating, excessive thirst, excessive urination, flushing, intolerance to cold, intolerance to heat, unexplained weight gain, unexplained weight loss, others Psychiatric: denies: anxiety, bipolar disorder, depression, hopeless, panic disorder, schizophrenia, sleepless, suicidal, others All Other Systems: Reviewed and Negative Physical Exam General Appearance: No Apparent Distress, Normal HEENT: Pharynx Normal, TMs Normal, Other (pinpoint pupils) Neck: Full Range of Motion, Non-Tender, Normal, Normal Inspection Respiratory: Chest Non-Tender, Lungs Clear, No Accessory Muscle Use, No Respiratory Distress, Normal Breath Sounds Cardiovascular: No Edema, No JVD, No Murmur, No Gallop, Normal Peripheral Pulses, Regular Rate/Rhythm Breast Exam: Deferred Gastrointestinal: No Organomegaly, Non Tender, No Pulsatile Mass, Normal Bowel Sounds, Soft Genitalia: Deferred Pelvic: Deferred Rectal: Deferred Extremities: No calf tenderness, Normal capillary refill, Normal inspection, Normal range of motion, Non-tender, No pedal edema Musculoskeletal : Apperance: Normal Neurologic: Alert, cellular biologist II-XII nml as Tested, No Motor Deficits, Normal Affect, Normal Mood, No Sensory Deficits Cerebellar Function: Normal Reflexes: Normal Skin: Dry, Normal Color, Warm Lymphatic: No Adenopathy Was a procedure done? Was a procedure done?: No Laceration Repair : Location Scalp Length 6 cm Anesthetic: Nothing Laceration Repair Prep: Saline, Shur-Clens Laceration Repair Wound Comple: epidermis/dermis repair Laceration Repair: [place] (8) Informed consent obtained: Yes Risks, benefits, and alternati: Yes Differential Dx Considerations may include: Intracranial injury, alcohol withdrawal, polysubstance abuse, laceration X-Ray, Labs, Meds, VS Vital Signs Date Time Temp Pulse Resp B/P (MAP) Pulse Ox O2 Delivery O2 Flow Rate FiO2 10/20/24 00:00 117 10/19/24 22:04 97.9 146 12 138/105 (116) 96 10/19/24 21:50 129 Lab Test 10/20/24 00:18 10/19/24 22:12 Range/Units POC Glucose 211 H 70-106 mg/dl White Blood Count 5.1 4.4-10.8 10^3/uL Red Blood Count 3.11 L 4.5-5.90 10^6/uL Hemoglobin 9.8 L 13.5-17.5 g/dL Hematocrit 30.0 L 41.0-53.0 % Mean Corpuscular Volume 96.5 80.0-100.0 fL Mean Corpuscular Hemoglobin 31.4 28.0-32.0 pg Mean Corpuscular Hemoglobin Concent 32.6 32.0-36.0 g/dL Red Cell Distribution Width 17.0 H 11.8-14.3 % Platelet Count 50 L 140-450 10^3/uL Mean Platelet Volume 8.5 6.9-10.8 fL Neutrophils (%) (Auto) 58.8 37.0-80.0 % Lymphocytes (%) (Auto) 32.3 10.0-50.0 % Monocytes (%) (Auto) 7.9 0.0-12.0 % Eosinophils (%) (Auto) 0.5 0.0-7.0 % Basophils (%) (Auto) 0.5 0.0-2.0 % Neutrophils # (Auto) 3.0 1.6-8.6 10 ^3/uL Lymphocytes # (Auto) 1.6 0.4-5.4 10 ^3/uL Monocytes # (Auto) 0.4 0-1.3 10 ^3/uL Eosinophils # (Auto) 0 0-0.8 10 ^3/uL Basophils # (Auto) 0 0-0.2 10 ^3/uL Nucleated Red Blood Cells 0.2 % Sodium Level 133 L 136-145 mmol/L Potassium Level 4.2 3.5-5.1 mmol/L Chloride Level 94 L 98-107 mmol/L Carbon Dioxide Level 21 20-31 mmol/L Anion Gap 18 H 5-15 Blood Urea Nitrogen 12 9-23 mg/dL Creatinine 1.38 H 0.700-1.30 mg/dL Glomerular Filtration Rate Calc 67 >90 mL/min BUN/Creatinine Ratio 8.7 L 10.0-20.0 Serum Glucose 278 H 74-106 mg/dL Calcium Level 7.7 L 8.7-10.4 mg/dL Plasma/Serum Blood Alcohol 298.3 H <10 mg/dL Current Medications Medications (Trade) Dose Ordered Sig/[place] Route Start Time Stop Time Status Last Admin Sodium Chloride 1,000 ml @ 1,000 mls/hr Q1H ONCE IV 10/19/24 22:00 10/19/24 22:59 DC 10/18/24 23:51 Ondansetron HCl (Zofran) 4 mg ONCE ONCE IV 10/19/24 22:00 10/19/24 22:01 DC 10/19/24 23:21 Diphtheria/ Tetanus/Acell Pertussis (Boostrix T-Dap) 0.5 ml ONCE ONCE IM 10/19/24 22:00 10/19/24 22:01 DC 10/20/24 00:58 Sodium Chloride 1,000 ml @ 1,000 mls/hr Q1H ONCE IV 10/20/24 00:00 10/20/24 00:59 DC 10/20/24 00:00 Lorazepam (Ativan Inj) 2 mg ONCE ONCE IV 10/20/24 00:45 10/20/24 00:46 DC 10/20/24 00:58 Chlordiazepoxide HCl (Librium Capsule) 50 mg ONCE ONCE PO 10/20/24 00:45 10/20/24 00:46 DC 10/20/24 00:59 [place] [address] Ph: [phone] DIAGNOSTIC IMAGING Diagnostic Imaging Report : [id number] Signed PATIENT: GENESIS HOUSE ACCT: [id number] UNIT: [id number] : 1985 LOC: ER ROOM / BED: / AGE / SEX: 38 / M ADM STATUS: REG ER SERVICE [id number] ORDERING PHYSICIAN: SHELBIE VALDEZ MD PROCEDURE(s): CXRP - CHEST PORTABLE REASON: syncope ORDER NUMBER(s): [id number], ACCESSION NUMBER(s): [id number] CHEST RADIOGRAPH Indication: syncope Technique: Single frontal view of the chest was obtained COMPARISON: CHEST PORTABLE on DOS: 02/05/22, CXRP on DOS: 02/05/22 FINDINGS: Lines and Tubes: None Lungs: Clear Pleura: No effusion. No pneumothorax. Cardiomediastinal contours: Unremarkable Bones: Unremarkable IMPRESSION: No abnormality. ATED BY: MANNY RICHEY MD DICTATED DATE/TIME: 10/19/242314 SIGNED BY: MANNY RICHEY MD SIGNED DATE/TIME: 10/19/242314 CC: [place] [address] Ph: [phone] DIAGNOSTIC IMAGING Diagnostic Imaging Report : [id number] Signed PATIENT: GENESIS HOUSE ACCT: [id number] UNIT: [id number] : 1985 LOC: ER ROOM / BED: / AGE / SEX: 38 / M ADM STATUS: REG ER SERVICE 57 ORDERING PHYSICIAN: SHELBIE VALDEZ MD PROCEDURE(s): HWOCT - HEAD WITHOUT CONTRAST REASON: syncope ORDER NUMBER(s): [id number], ACCESSION NUMBER(s): [id number] EXAM: CT HEAD WITHOUT CONTRAST INDICATION: syncope TECHNIQUE: CT of the head without intravenous contrast. Radiation Dose : 1. Head: CT Dose: CTDI volume is 56.65 mGy. Dose-length product is 908.19 mGy*cm The dose indicators for CT are the volume Computed Tomography (CT) Dose Index (CTDIvol) and the Dose Length Product (DLP), and are measured in units of mGy and mGy-cm, respectively. These indicators are not patient dose, but values generated from the CT scanner acquisition factors. The report includes radiation exposure data for exposures received during this examination. COMPARISON: None FINDINGS: There is no evidence of acute intracranial hemorrhage, extra-axial collection, mass effect, midline shift, herniation or hydrocephalus. The ventricles, sulci and cisterns are age appropriate. The bishop-white differentiation is intact. Patchy periventricular and subcortical white matter hypoattenuation is nonspecific but may be related to small vessel ischemic disease. Mild mucosal thickening of the right maxillary sinus. The surrounding soft tissues and osseous structures are unremarkable. IMPRESSION: 1. No acute intracranial abnormality. Radiation optimization: All CT scans at this facility use at least one of these dose optimization techniques: automated exposure control mA and/or kV adjustment per patient size (includes targeted exams where dose is matched to clinical indication) or iterative reconstruction. ATED BY: KATYA PALMER MD DICTATED DATE/TIME: 10/19/242309 SIGNED BY: KATYA PALMER MD SIGNED DATE/TIME: 10/19/242309 CC: Time of 1ST Reevaluation: 22:25 Reevaluation 1ST: Unchanged Patient Education/Counseling: Diagnosis, Treatment, Prognosis Family Education/Counseling: No Family Present Additional Information The following tests were ordered, and results were reviewed by me: BMP, CBC, UA, BLOOD ALCOHOL, DRUG SCREEN, XY CHEST, CT HEAD WITHOUT CONTRAST, EKG Additional Information was gathered from interviewing the following independent historians: EMS I reviewed and agreed with the following test results read by other providers: XY CHEST, CT HEAD WITHOUT CONTRAST, I discussed treatment and results with medical personnel and: patient Departure 1 Departure Time of Disposition: 01:27 (Patient with signs and symptoms of alcohol withdrawal.. Patient's head. We will admit patient for further workup due to hypotension tachycardia generalized weakness) Impression: Primary Impression: Metabolic encephalopathy Additional Impressions: Alcohol withdrawal Qualified Codes: F10.930 - Alcohol use, unspecified with withdrawal, uncomplicated Scalp laceration Qualified Codes: S01.01XA - Laceration without foreign body of scalp, initial encounter Syncope Qualified Codes: R55 - Syncope and collapse Disposition: ADMITTED INPATIENT Admit to: Med Surg Condition: Serious Critical Care Note Critical Care Time?: No Stability Stability form required: No I personally scribed for SHELBIE VALDEZ MD ([email or web address]) on 10/19/24 at 22:19. Electronically submitted by Jessica Nelson ([email or web address]). I personally scribed for SHELBIE VALDEZ MD ([email or web address]) on 10/19/24 at 22:45. Electronically submitted by Jessica Nelson ([email or web address]). I personally scribed for SHELBIE VALDEZ MD ([email or web address]) on 10/19/24 at 23:30. Electronically submitted by Jessica Nelson ([email or web address]). SHELBIE VALDEZ MD Oct 19, 2024 22:19
[2024-10-19 22:50] LABS: Basophils # (auto) 0 10 ^3/uL (0-0.2); Basophils % (auto) 0.5 % (0.0-2.0); Eosinophils # (auto) 0 10 ^3/uL (0-0.8); Eosinophils % (auto) 0.5 % (0.0-7.0); Hemoglobin 9.8 g/dL (13.5-17.5); Lymphocytes # (auto) 1.6 10 ^3/uL (0.4-5.4); Lymphocytes % (auto) 32.3 % (10.0-50.0); Mean Corpuscular Hemoglobin 31.4 pg (28.0-32.0); Mean Corpuscular Hgb Conc. 32.6 g/dL (32.0-36.0); Mean Corpuscular Volume 96.5 fL (80.0-100.0); Monocytes # (auto) 0.4 10 ^3/uL (0-1.3); Monocytes % (auto) 7.9 % (0.0-12.0); Neutrophils % (auto) 58.8 % (37.0-80.0); Nucleated Red Blood Cells % 0.2 %; Platelet Count (auto) 50 10^3/uL (140-450); Red Blood Cells 3.11 10^6/uL (4.5-5.90); White Blood Cell 5.1 10^3/uL (4.4-10.8)
[2024-10-19 23:02] LABS: Potassium 4.2 mmol/L (3.5-5.1)
[2024-10-19 23:03] LABS: Anion Gap 18 (5-15); Carbon Dioxide 21 mmol/L (20-31)
[2024-10-19 23:08] LABS: BUN/Creatinine Ratio 8.7 (10.0-20.0); Blood Urea Nitrogen 12 mg/dL (9-23)
[2024-10-19 23:09] LABS: Calcium 7.7 mg/dL (8.7-10.4); Chloride 94 mmol/L (98-107); Glucose 278 mg/dL (74-106); Sodium 133 mmol/L (136-145)
--- NOTE | 2024-10-19 23:13 | DVH ---
EXAM: CT HEAD WITHOUT CONTRAST INDICATION: syncope TECHNIQUE: CT of the head without intravenous contrast. Radiation Dose : 1. Head: CT Dose: CTDI volume is 56.65 mGy. Dose-length product is 908.19 mGy*cm The dose indicators for CT are the volume Computed Tomography (CT) Dose Index (CTDIvol) and the Dose Length Product (DLP), and are measured in units of mGy and mGy-cm, respectively. These indicators are not patient dose, but values generated from the CT scanner acquisition factors. The report includes radiation exposure data for exposures received during this examination. COMPARISON: None FINDINGS: There is no evidence of acute intracranial hemorrhage, extra-axial collection, mass effect, midline s hift, herniation or hydrocephalus. The ventricles, sulci and cisterns are age appropriate. The bishop-white differentiation is intact. Patchy periventricular and subcortical white matter hypoattenuation is nonspecific but may be related to small vessel ischemic disease. Mild mucosal thickening of the right maxillary sinus. The surrounding soft tissues and osseous structures are unremarkable. IMPRESSION: 1. No acute intracranial abnormality. Radiation optimization: All CT scans at this facility use at least one of these dose optimization royal hniques: automated exposure control mA and/or kV adjustment per patient size (includes targeted exam s where dose is matched to clinical indication) or iterative reconstruction.
--- NOTE | 2024-10-19 23:17 | DVH ---
CHEST RADIOGRAPH Indication: syncope Technique: Single frontal view of the chest was obtained COMPARISON: CHEST PORTABLE on DOS: 02/05/22, CXRP on DOS: 02/05/22 FINDINGS: Lines and Tubes: None Lungs: Clear Pleura: No effusion. No pneumothorax. Cardiomediastinal contours: Unremarkable Bones: Unremarkable IMPRESSION: No abnormality.
[2024-10-19] MEDS: ONDANSETRON HCL 4 MG/2 ML VIAL IV ONE (23:21)
[2024-10-19 23:30] VITALS: PULSE 126; RESP 13; O2SAT 93
[2024-10-19 23:56] LABS: Blood Alcohol 298.3 mg/dL (<10)
[2024-10-20] MEDS: TETANUS-DIPTH-ACEL PERTUSSIS 0.5ML SYR Tdap IM ONE (00:58)
[2024-10-20] MEDS: LORazepam 2MG/ML-1ML VIAL IV ONE (00:58)
[2024-10-20] MEDS: chlordiazePOXIDE HCL 25 MG CAP PO ONE (00:59)
[2024-10-20] MEDS: SODIUM CHLORIDE 0.9% 1,000 ML IV ONE ×3 (01:00→04:37)
--- NOTE | 2024-10-20 03:57 | ECG ---
[facility] Test Date: 2024-10-19 Test Time: 21:50:53 Pat Name: GENESIS HOUSE Department: ED Room: 0220 Gender: M Laboratory Secretary: GEORGI : 1985 Requested By: SHELBIE VALDEZ Order Number: [id number] Reading MD: Kojo Herr Measurements Intervals [place] Rate: 129 P: 78 MI: 137 QRS: 71 QRSD: 85 T: 29 QT: 323 QTc: 474 Interpretive Statements Sinus tachycardia Ventricular premature complex Electronically Signed On 10-23-2024 17:48:16 PST by Kojo Herr Please click the below link to view image of tracing.
[2024-10-20] MEDS ORDERED: ACETAMINOPHEN 325 MG TAB PO PRN (04:15)
[2024-10-20] MEDS ORDERED: ONDANSETRON HCL 4 MG/2 ML VIAL IV PRN (04:15)
[2024-10-20] MEDS ORDERED: DEXTROSE (50%) 50ML SYRG IV PRN (04:15)
--- NOTE | 2024-10-20 04:54 | DVHHP2 ---
History of Present Illness Reason for Visit: Altered mental status History of Present Illness 38-year-old male presents for evaluation of possible overdose. Patient was found unresponsive in his bathroom floor on family started compressions. On arrival by the EMS patient was already responsive. He has been drinking yesterday and fell while getting out of the shower. Reports having a headache noted left side scalp laceration. Denies chest pain or palpitations. No other acute complaints. Past Medical History Diabetes mellitus Past Surgical History Denies Family History Noncontributory Smoke: No ALCOHOL: heavy Drugs: None Lives: with Family Review of Systems Review of Systems Review of systems are currently negative otherwise addressed in HPI. Allergies: Coded Allergies: NO KNOWN ALLERGIES (Unverified , 02/05/22) Medications Current Medications Medications Dose Ordered Sig/[place] Route Start Time Stop Time Status Last Admin Dose Admin Chlordiazepoxide HCl 25 mg Q6HPRN PRN PO 10/20/24 04:15 Folic Acid 1 mg/ Magnesium Sulfate 8 meq/ Multivitamins 10 ml/Thiamine HCl 100 mg/Sodium Chloride 1,013.2 ml @ 126.247 mls/hr DAILY@1800 INJ 10/20/24 18:00 Diagnostic Test (Pha) 1 strip ACHS 10/20/24 07:00 Insulin Human Regular ACHS SC 10/20/24 07:00 Dextrose 50 ml UD PRN IV 10/20/24 04:15 Ondansetron HCl 4 mg Q4HP PRN IV 10/20/24 04:15 Acetaminophen 650 mg Q6HP PRN PO 10/20/24 04:15 Exam Vital Signs Vital Signs Date Time Temp Pulse Resp B/P (MAP) Pulse Ox O2 Delivery O2 Flow Rate FiO2 10/20/24 03:00 102 9 101/61 (74) 100 10/19/24 23:30 Room Air* 0 21 10/19/24 23:30 98.3 98.3 Exam Gen: 38-year-old male in mild distress Skin: Warm, dry, normal color and texture, no rash. HEENT: Normocephalic atraumatic, mucous membranes moist and pink. Neck: Cervical and supraclavicular nodes normal without enlargement, trachea is midline, thyroid gland is normal without masses. Pulmonary: Clear to auscultation and percussion bilaterally. Cardiac: Regular rate and rhythm. No murmur Abdomen: Soft, nontender, nondistended, bowel sounds present all 4 quadrants, no guarding, no rigidity, no organomegaly. Extremities: No cyanosis, clubbing, no edema Neuro: Cranial nerves II through XII grossly intact, normal affect and speech, no focal motor deficits. Labs/Xrays ORDERING PHYSICIAN: SHELBIE VALDEZ MD PROCEDURE(s): CXRP - CHEST PORTABLE REASON: syncope ORDER NUMBER(s): [id number], ACCESSION NUMBER(s): [id number] CHEST RADIOGRAPH Indication: syncope Technique: Single frontal view of the chest was obtained COMPARISON: CHEST PORTABLE on DOS: 02/05/22, CXRP on DOS: 02/05/22 FINDINGS: Lines and Tubes: None Lungs: Clear Pleura: No effusion. No pneumothorax. Cardiomediastinal contours: Unremarkable Bones: Unremarkable IMPRESSION: No abnormality. RING PHYSICIAN: SHELBIE VALDEZ MD PROCEDURE(s): HWOCT - HEAD WITHOUT CONTRAST REASON: syncope ORDER NUMBER(s): [id number], ACCESSION NUMBER(s): [id number] EXAM: CT HEAD WITHOUT CONTRAST INDICATION: syncope TECHNIQUE: CT of the head without intravenous contrast. Radiation Dose : 1. Head: CT Dose: CTDI volume is 56.65 mGy. Dose-length product is 908.19 mGy*cm The dose indicators for CT are the volume Computed Tomography (CT) Dose Index (CTDIvol) and the Dose Length Product (DLP), and are measured in units of mGy and mGy-cm, respectively. These indicators are not patient dose, but values generated from the CT scanner acquisition factors. The report includes radiation exposure data for exposures received during this examination. COMPARISON: None FINDINGS: There is no evidence of acute intracranial hemorrhage, extra-axial collection, mass effect, midline shift, herniation or hydrocephalus. The ventricles, sulci and cisterns are age appropriate. The bishop-white differentiation is intact. Patchy periventricular and subcortical white matter hypoattenuation is nonspecific but may be related to small vessel ischemic disease. Mild mucosal thickening of the right maxillary sinus. The surrounding soft tissues and osseous structures are unremarkable. IMPRESSION: 1. No acute intracranial abnormality. Radiation optimization: All CT scans at this facility use at least one of these dose optimization techniques: automated exposure control mA and/or kV adjustment per patient size (includes targeted exams where dose is matched to clinical indication) or iterative reconstruction. ATED BY: KATYA PALMER MD DICTATED DATE/TIME: 10/19/242309 SIGNED BY: KATYA PALMER MD SIGNED DATE/TIME: 10/19/242309 CC: Labs Test 10/20/24 00:18 10/19/24 22:12 Range/Units POC Glucose 211 H 70-106 mg/dl White Blood Count 5.1 4.4-10.8 10^3/uL Red Blood Count 3.11 L 4.5-5.90 10^6/uL Hemoglobin 9.8 L 13.5-17.5 g/dL Hematocrit 30.0 L 41.0-53.0 % Mean Corpuscular Volume 96.5 80.0-100.0 fL Mean Corpuscular Hemoglobin 31.4 28.0-32.0 pg Mean Corpuscular Hemoglobin Concent 32.6 32.0-36.0 g/dL Red Cell Distribution Width 17.0 H 11.8-14.3 % Platelet Count 50 L 140-450 10^3/uL Mean Platelet Volume 8.5 6.9-10.8 fL Neutrophils (%) (Auto) 58.8 37.0-80.0 % Lymphocytes (%) (Auto) 32.3 10.0-50.0 % Monocytes (%) (Auto) 7.9 0.0-12.0 % Eosinophils (%) (Auto) 0.5 0.0-7.0 % Basophils (%) (Auto) 0.5 0.0-2.0 % Neutrophils # (Auto) 3.0 1.6-8.6 10 ^3/uL Lymphocytes # (Auto) 1.6 0.4-5.4 10 ^3/uL Monocytes # (Auto) 0.4 0-1.3 10 ^3/uL Eosinophils # (Auto) 0 0-0.8 10 ^3/uL Basophils # (Auto) 0 0-0.2 10 ^3/uL Nucleated Red Blood Cells 0.2 % Sodium Level 133 L 136-145 mmol/L Potassium Level 4.2 3.5-5.1 mmol/L Chloride Level 94 L 98-107 mmol/L Carbon Dioxide Level 21 20-31 mmol/L Anion Gap 18 H 5-15 Blood Urea Nitrogen 12 9-23 mg/dL Creatinine 1.38 H 0.700-1.30 mg/dL Glomerular Filtration Rate Calc 67 >90 mL/min BUN/Creatinine Ratio 8.7 L 10.0-20.0 Serum Glucose 278 H 74-106 mg/dL Calcium Level 7.7 L 8.7-10.4 mg/dL Plasma/Serum Blood Alcohol 298.3 H <10 mg/dL Assessment/Plan Assessment/Plan Assessment Toxic encephalopathy Alcohol intoxication Scalp laceration Hypotension Diabetes mellitus Admit the patient to Med surge to the hospitalist Maintenance IV fluids Banana bag Librium Continue treatment per orders. Plan discussed with: Patient My Orders Orders - VALENTINO GUILLERMO Procedure Category Date Status Time Chlordiazepoxide Hcl PHA 10/20/24 In Process Capsule (Librium Ca 04:15 Folic Acid... PHA 10/20/24 In Process 18:00 Sodium Chloride 0.9% PHA 10/20/24 In Process 04:15 Consistent DIET 10/20/24 Transmitted Carb(Ccho)Diabetes Breakfast Glucose Blood PHA 10/20/24 In Process (Accu-Chek Comfort 07:00 Insulin R (Human) PHA 10/20/24 In Process (Insulin R) 07:00 Dextrose 50% Syringe PHA 10/20/24 In Process 04:15 Admit ADMIT 10/20/24 Transmitted 04:04 Ondansetron Hcl PHA 10/20/24 In Process (Zofran) 04:15 Condition: Stable MIROSLAVA 10/20/24 In Process 04:04 Acetaminophen Tablet PHA 10/20/24 In Process (Tylenol Tablet) 04:15 Bedrest With Bathroom MIROSLAVA 10/20/24 In Process Privileg 04:04 Basic Metabolic Panel LAB 10/21/24 Verified 04:00 Date of Service: Oct 20, 2024 Billing Provider: VALENTINO GUILLERMO Common Visit Codes: [id number] INP/OBS CARE (HIGH) VALENTINO GUILLERMO Oct 20, 2024 04:54
[2024-10-20] MEDS: InsuLIN REG 1unit/0.01ml Soln (100units/ml) SC SCH (06:58)
[2024-10-20] MEDS: ACCU-CHEK COMFORT CURVE STRIP VI SCH (07:01)
[2024-10-20 09:31] VITALS: PULSE 107; RESP 8; O2SAT 100
[2024-10-20] MEDS: chlordiazePOXIDE HCL 25 MG CAP PO PRN (09:40)
[2024-10-20] MEDS: LORazepam 2MG/ML-1ML VIAL IV PRN (13:01)
[2024-10-20] MEDS: FOLIC ACID 1 MG, MAGNESIUM SULF SDV 50% 8 MEQ, MULTIPLE VITAMIN 10 ML, THIAMINE INJ 100... INJ SCH (18:16)
[2024-10-20 18:36] LABS: Urine Bacteria None Seen /hpf (None Seen)
[2024-10-20 18:54] LABS: Urine Blood Negative /uL (Negative); Urine Clarity Clear (Clear); Urine Color Light-Orange (Yellow); Urine Mucus FEW (None Seen); Urine Protein, UAD TRACE (Negative); Urine Specific Gravity 1.021 (1.001-1.035); Urine Squamous Epithelial Cell FEW /hpf (<5); Urine Urobilinogen Normal (Negative); Urine WBC 3 /HPF (0-3); Urine pH 5.5 (5.0-9.0)
[2024-10-20 19:00] LABS: Cocaine Screen, Urine Neg (NEGATIVE)
[2024-10-20 19:01] LABS: Cannabinoid Screen, Urine Neg (NEGATIVE)
[2024-10-20 19:16] LABS: Amphetamine Screen, Urine Neg (NEGATIVE); Barbiturate Scree,Urine Neg (NEGATIVE); Benzodiazephine Screen, Urine Pos (NEGATIVE); Opiate Scree,Urine Neg (NEGATIVE); Phencyclidine Screen, Urine Neg (NEGATIVE)
[2024-10-20 20:00] VITALS: PULSE 130; RESP 16; O2SAT 95
[2024-10-20 21:15] VITALS: BP 98/79; PULSE 118; RESP 20; TEMP 98.2; O2SAT 98
[2024-10-20 23:20] VITALS: BP 126/78; PULSE 122; RESP 21; TEMP 98.9; O2SAT 96
[2024-10-20] MEDS ORDERED: METF-370 PO (23:57)
[2024-10-20] MEDS ORDERED: METF500S3 PO (23:57)
[2024-10-21] VITALS (7 sets, daily range): BP systolic 103–118; BP diastolic 58–70; PULSE 63–132; RESP 16–21; TEMP 98.4–99.9; O2SAT 90–100
[2024-10-21 07:23] LABS: Potassium 4.3 mmol/L (3.5-5.1)
[2024-10-21 07:24] LABS: Anion Gap 8 (5-15); Carbon Dioxide 28 mmol/L (20-31)
[2024-10-21 07:25] LABS: Calcium 7.8 mg/dL (8.7-10.4); Chloride 93 mmol/L (98-107); Sodium 129 mmol/L (136-145)
[2024-10-21 07:30] LABS: BUN/Creatinine Ratio 10.7 (10.0-20.0)
[2024-10-21 07:32] LABS: Blood Urea Nitrogen 8 mg/dL (9-23); Glucose 145 mg/dL (74-106)
--- NOTE | 2024-10-21 17:27 | DVHPN2 ---
Subjective remains confused Changes from previous H/P or p: No Changes Objective Vitals Vital Signs Date Time Temp Pulse Resp B/P (MAP) Pulse Ox O2 Delivery O2 Flow Rate FiO2 10/21/24 13:00 98.5 125 16 103/70 (81) 100 98.5 10/20/24 23:20 Nasal Cannula* 2 28 Intake/Output Intake and Output 10/21/24 07:00 Intake Total 1178.787 ml Balance 1178.787 ml Intake Oral 100 ml IV Total 1078.787 ml # Voids 1 General Appearance: Alert, Other (confused x 2) Lungs: Clear to auscultation Cardiovascular: Regular rate, Normal S1, Normal S2 Medications Current Medications Medications Dose Ordered Sig/[place] Route Start Time Stop Time Status Last Admin Dose Admin Chlordiazepoxide HCl 25 mg Q6HPRN PRN PO 10/20/24 04:15 10/20/24 16:06 25 MG Diagnostic Test (Pha) 1 strip ACHS 10/20/24 07:00 10/21/24 11:30 1 STRIP Insulin Human Regular ACHS SC 10/20/24 07:00 10/21/24 06:37 2 UNITS Dextrose 50 ml UD PRN IV 10/20/24 04:15 Ondansetron HCl 4 mg Q4HP PRN IV 10/20/24 04:15 Acetaminophen 650 mg Q6HP PRN PO 10/20/24 04:15 Lorazepam 2 mg Q2HPRN PRN IV 10/20/24 12:15 10/21/24 12:22 2 MG Folic Acid 1 mg DAILY PO 10/22/24 10:00 Multivitamins 1 tab DAILY PO 10/22/24 10:00 Magnesium Oxide 400 mg DAILY PO 10/22/24 10:00 Thiamine HCl 100 mg DAILY PO 10/22/24 10:00 Laboratory Results Laboratory Tests 10/19/24 22:12 10/21/24 06:30 Chemistry Test 10/21/24 06:30 Calcium Level 7.8 mg/dL (8.7-10.4) L Urinalysis Test 10/20/24 17:54 Urine Color Light-orange (Yellow) Urine Clarity Clear (Clear) Urine pH 5.5 (5.0-9.0) Urine Specific [place] 1.021 (1.001-1.035) Urine Protein Trace (Negative) H Urine Ketones 1+ (Negative) H Urine Blood Negative /uL (Negative) Urine Nitrite Negative (Negative) Urine Bilirubin Negative (Negative) Urine Urobilinogen Normal mg/dL (Negative) Urine Leukocyte Esterase Negative /uL (Negative) Urine RBC 1 /hpf (0 - 3) Urine Microscopic WBC 3 /HPF (0-3) Urine Squamous Epithelial Cells Few /hpf (<5) Urine Bacteria None seen /hpf (None Seen) Urine Mucus Few (None Seen) Urine Glucose 3+ mg/dL (Normal) H Microbiology Microbiology Date/Time Source Procedure Growth Status 10/21/24 00:10 Nose MRSA Screen - Final Complete Assessment/Plan Assessment/Plan #Toxic encephalopathy #Alcohol intoxication #Alcohol withdrawal CIWA 28 with confusion, anxiety, tremors, nausea continue ativan monitor #Hyponatremia Na 129 IVF #Scalp laceration #Hypotension #Diabetes mellitus Insulin and monitor labs Plan discussed with: Patient Date of Service: Oct 21, 2024 Billing Provider: WANDA LERMA MD Common Visit Codes: [id number] INP/OBS CARE(HIGH) WANDA LERMA MD Oct 21, 2024 17:27
[2024-10-21] MEDS: MAGNESIUM OXIDE 400 MG TAB PO ONE (17:52)
[2024-10-21] MEDS: FOLIC ACID 1 MG TAB PO ONE (17:52)
[2024-10-21] MEDS: MULTIPLE VITAMIN TAB PO ONE (17:52)
[2024-10-21] MEDS: THIAMINE HCL 100 MG TAB PO ONE (17:52)
[2024-10-22 01:00] VITALS: BP 110/72; PULSE 112; RESP 18; TEMP 97.7; O2SAT 96
[2024-10-22] MEDS: MELATONIN 5 MG TAB PO SCH (02:41)
[2024-10-22] MEDS: HALOPERIDOL LACTATE 5 MG/ML INJ VIAL IM PRN (04:19)
[2024-10-22 05:00] VITALS: BP 116/74; PULSE 128; RESP 18; TEMP 98.8; O2SAT 92
[2024-10-22 09:00] VITALS: BP 105/69; PULSE 120; RESP 15; TEMP 98.2; O2SAT 97
[2024-10-22] MEDS: MAGNESIUM OXIDE 400 MG TAB PO SCH (11:43)
[2024-10-22] MEDS: MULTIPLE VITAMIN TAB PO SCH (11:44)
[2024-10-22] MEDS: THIAMINE HCL 100 MG TAB PO SCH (11:44)
[2024-10-22] MEDS: FOLIC ACID 1 MG TAB PO SCH (11:44)
[2024-10-22 13:00] VITALS: BP 101/64; PULSE 121; RESP 16; TEMP 98; O2SAT 94
[2024-10-22 17:00] VITALS: BP 103/66; PULSE 102; RESP 18; TEMP 98.4; O2SAT 99
--- NOTE | 2024-10-22 17:30 | DVHPN2 ---
Subjective remains confused Reviewed: Care Plan Changes from previous H/P or p: No Changes Objective Vitals Vital Signs Date Time Temp Pulse Resp B/P (MAP) Pulse Ox O2 Delivery O2 Flow Rate FiO2 10/22/24 13:00 98.0 121 16 101/64 (76) 94 98.0 10/22/24 08:00 Room Air* 0 21 Intake/Output Intake and Output 10/22/24 07:00 Intake Total 990 ml Output Total 60 ml Balance 930 ml Intake Oral 990 ml Output Drainage Total 60 ml # Voids 1 # Bowel Movements 2 General Appearance: Alert, Other (confused x 2) Lungs: Clear to auscultation Cardiovascular: Regular rate, Normal S1, Normal S2 Medications Current Medications Medications Dose Ordered Sig/[place] Route Start Time Stop Time Status Last Admin Dose Admin Chlordiazepoxide HCl 25 mg Q6HPRN PRN PO 10/20/24 04:15 10/22/24 01:56 25 MG Diagnostic Test (Pha) 1 strip ACHS 10/20/24 07:00 10/22/24 17:13 1 STRIP Insulin Human Regular ACHS SC 10/20/24 07:00 10/22/24 06:22 2 UNITS Dextrose 50 ml UD PRN IV 10/20/24 04:15 Ondansetron HCl 4 mg Q4HP PRN IV 10/20/24 04:15 Acetaminophen 650 mg Q6HP PRN PO 10/20/24 04:15 Lorazepam 2 mg Q2HPRN PRN IV 10/20/24 12:15 10/22/24 00:06 2 MG Folic Acid 1 mg DAILY PO 10/22/24 10:00 10/22/24 11:44 1 MG Multivitamins 1 tab DAILY PO 10/22/24 10:00 10/22/24 11:44 1 TAB Magnesium Oxide 400 mg DAILY PO 10/22/24 10:00 10/22/24 11:43 400 MG Thiamine HCl 100 mg DAILY PO 10/22/24 10:00 10/22/24 11:44 100 MG Melatonin 5 mg HS PO 10/22/24 02:29 10/22/24 02:41 5 MG Haloperidol Lactate 5 mg Q6HPRN PRN IM 10/22/24 04:00 10/22/24 04:19 5 MG Laboratory Results Laboratory Tests 10/19/24 22:12 10/21/24 06:30 Urinalysis Test 10/20/24 17:54 Urine Color Light-orange (Yellow) Urine Clarity Clear (Clear) Urine pH 5.5 (5.0-9.0) Urine Specific [place] 1.021 (1.001-1.035) Urine Protein Trace (Negative) H Urine Ketones 1+ (Negative) H Urine Blood Negative /uL (Negative) Urine Nitrite Negative (Negative) Urine Bilirubin Negative (Negative) Urine Urobilinogen Normal mg/dL (Negative) Urine Leukocyte Esterase Negative /uL (Negative) Urine RBC 1 /hpf (0 - 3) Urine Microscopic WBC 3 /HPF (0-3) Urine Squamous Epithelial Cells Few /hpf (<5) Urine Bacteria None seen /hpf (None Seen) Urine Mucus Few (None Seen) Urine Glucose 3+ mg/dL (Normal) H Microbiology Microbiology Date/Time Source Procedure Growth Status 10/21/24 00:10 Nose MRSA Screen - Final Complete Assessment/Plan Assessment/Plan #Toxic encephalopathy #Alcohol intoxication #Alcohol withdrawal CIWA 28 with confusion, anxiety, tremors, nausea continue ativan monitor #Hyponatremia Na 129 IVF #Scalp laceration #Hypotension #Diabetes mellitus Insulin and monitor labs Plan discussed with: Patient Date of Service: Oct 22, 2024 Billing Provider: WANDA LERMA MD Common Visit Codes: [id number] INP/OBS CARE(HIGH) WANDA LERMA MD Oct 22, 2024 17:30
[2024-10-22 21:00] VITALS: BP 108/68; PULSE 108; RESP 18; TEMP 98.6; O2SAT 98
[2024-10-23 06:21] LABS: Chloride 102 mmol/L (98-107); Potassium 4.3 mmol/L (3.5-5.1)
[2024-10-23 06:22] LABS: Anion Gap 4 (5-15); Carbon Dioxide 29 mmol/L (20-31)
[2024-10-23 06:30] LABS: BUN/Creatinine Ratio 6.8 (10.0-20.0); Blood Urea Nitrogen < 5 mg/dL (9-23); Calcium 8.3 mg/dL (8.7-10.4); Glucose 116 mg/dL (74-106); Sodium 135 mmol/L (136-145)
[2024-10-23 08:00] VITALS: PULSE 96; RESP 18; O2SAT 98
[2024-10-23 09:00] VITALS: BP 96/58; PULSE 94; RESP 18; TEMP 98.2; O2SAT 94
[2024-10-23 13:00] VITALS: BP 97/70; PULSE 91; RESP 17; TEMP 98.3; O2SAT 96
--- NOTE | 2024-10-23 14:17 | DVHPN2 ---
Subjective less confused today Reviewed: Care Plan Changes from previous H/P or p: No Changes Objective Vitals Vital Signs Date Time Temp Pulse Resp B/P (MAP) Pulse Ox O2 Delivery O2 Flow Rate FiO2 10/23/24 08:00 96 18 98 Room Air* 0 21 10/22/24 21:00 98.6 108/68 (81) 98.6 Intake/Output Intake and Output 10/23/24 07:00 Intake Total 960 ml Output Total 650 ml Balance 310 ml Intake Oral 960 ml Output Urine Total 650 ml # Voids 3 General Appearance: Alert, Other (confused x 2) Lungs: Clear to auscultation Cardiovascular: Regular rate, Normal S1, Normal S2 Medications Current Medications Medications Dose Ordered Sig/[place] Route Start Time Stop Time Status Last Admin Dose Admin Chlordiazepoxide HCl 25 mg Q6HPRN PRN PO 10/20/24 04:15 10/22/24 01:56 25 MG Diagnostic Test (Pha) 1 strip ACHS 10/20/24 07:00 10/23/24 12:07 1 STRIP Insulin Human Regular ACHS SC 10/20/24 07:00 10/23/24 12:06 3 UNITS Dextrose 50 ml UD PRN IV 10/20/24 04:15 Ondansetron HCl 4 mg Q4HP PRN IV 10/20/24 04:15 Acetaminophen 650 mg Q6HP PRN PO 10/20/24 04:15 Lorazepam 2 mg Q2HPRN PRN IV 10/20/24 12:15 10/23/24 06:20 2 MG Folic Acid 1 mg DAILY PO 10/22/24 10:00 10/23/24 09:54 1 MG Multivitamins 1 tab DAILY PO 10/22/24 10:00 10/23/24 09:54 1 TAB Magnesium Oxide 400 mg DAILY PO 10/22/24 10:00 10/23/24 09:54 400 MG Thiamine HCl 100 mg DAILY PO 10/22/24 10:00 10/23/24 09:54 100 MG Melatonin 5 mg HS PO 10/22/24 02:29 10/22/24 02:41 5 MG Haloperidol Lactate 5 mg Q6HPRN PRN IM 10/22/24 04:00 10/22/24 04:19 5 MG Laboratory Results Laboratory Tests 10/19/24 22:12 10/23/24 05:38 Chemistry Test 10/23/24 05:38 Calcium Level 8.3 mg/dL (8.7-10.4) L Urinalysis Test 10/20/24 17:54 Urine Color Light-orange (Yellow) Urine Clarity Clear (Clear) Urine pH 5.5 (5.0-9.0) Urine Specific [place] 1.021 (1.001-1.035) Urine Protein Trace (Negative) H Urine Ketones 1+ (Negative) H Urine Blood Negative /uL (Negative) Urine Nitrite Negative (Negative) Urine Bilirubin Negative (Negative) Urine Urobilinogen Normal mg/dL (Negative) Urine Leukocyte Esterase Negative /uL (Negative) Urine RBC 1 /hpf (0 - 3) Urine Microscopic WBC 3 /HPF (0-3) Urine Squamous Epithelial Cells Few /hpf (<5) Urine Bacteria None seen /hpf (None Seen) Urine Mucus Few (None Seen) Urine Glucose 3+ mg/dL (Normal) H Microbiology Microbiology Date/Time Source Procedure Growth Status 10/21/24 00:10 Nose MRSA Screen - Final Complete Assessment/Plan Assessment/Plan #Toxic encephalopathy #Alcohol intoxication #Alcohol withdrawal CIWA 28 with confusion, anxiety, tremors, nausea continue ativan monitor #Hyponatremia Na 129>135 IVF #Scalp laceration #Hypotension #Diabetes mellitus Insulin and monitor labs Plan discussed with: Patient My Orders Orders - WANDA LERMA MD Procedure Category Date Status Time Basic Metabolic Panel LAB 10/24/24 Verified 05:00 Basic Metabolic Panel LAB 10/25/24 Verified 05:00 Basic Metabolic Panel LAB 10/26/24 Verified 05:00 Basic Metabolic Panel LAB 10/27/24 Verified 05:00 Basic Metabolic Panel LAB 10/28/24 Verified 05:00 Basic Metabolic Panel LAB 10/29/24 Verified 05:00 Date of Service: Oct 23, 2024 Billing Provider: WANDA LERMA MD Common Visit Codes: [id number] INP/OBS CARE(HIGH) WANDA LERMA MD Oct 23, 2024 14:17
[2024-10-23 17:00] VITALS: BP 105/73; PULSE 102; RESP 18; TEMP 97.9; O2SAT 94
[2024-10-23 20:00] VITALS: O2SAT 98
[2024-10-23 21:00] VITALS: BP 97/61; PULSE 109; RESP 19; TEMP 99.1; O2SAT 95
[2024-10-24 05:00] VITALS: BP 120/83; PULSE 91; RESP 20; TEMP 98.3; O2SAT 95
[2024-10-24 06:23] LABS: Calcium 9.3 mg/dL (8.7-10.4); Chloride 99 mmol/L (98-107); Potassium 4.3 mmol/L (3.5-5.1)
[2024-10-24 06:24] LABS: Anion Gap 9 (5-15); Carbon Dioxide 26 mmol/L (20-31)
[2024-10-24 06:29] LABS: BUN/Creatinine Ratio 8.4 (10.0-20.0)
[2024-10-24 06:37] LABS: Blood Urea Nitrogen 7 mg/dL (9-23); Glucose 123 mg/dL (74-106); Sodium 134 mmol/L (136-145)
[2024-10-24 07:30] VITALS: PULSE 91; O2SAT 95
[2024-10-24 09:00] VITALS: BP 104/70; PULSE 99; RESP 17; O2SAT 98
[2024-10-24] MEDS ORDERED: GLUCTES VI (11:10)
[2024-10-24] MEDS ORDERED: CHL10C PO ×2 (11:10→11:16)
[2024-10-24 12:23] VITALS: BP 120/83; PULSE 91; RESP 20; TEMP 98.3; O2SAT 95
[2024-10-24 12:58] VITALS: BP 116/71; PULSE 104; RESP 18; TEMP 98.1; O2SAT 99
== END 2024-10-24 14:20 | disposition home or self-care (01) | DRG 816 ==
LOC: ER 21:48 → EDBD 21:48 → OVERFLOW 10-20 04:04 → CENTRAL 10-20 22:15
PROVIDERS: ADMIT Hospitalist; ATTEND Hospitalist
PROC: 0HQ0XZZ Repair Scalp Skin, External Approach (ICD-10-PCS; principal; 2024-10-20)
DX: T51.0X1A Toxic effect of ethanol, accidental (unintentional), initial encounter (principal); G92.8 Other toxic encephalopathy; E87.1 Hypo-osmolality and hyponatremia; I95.9 Hypotension, unspecified; S01.01XA Laceration without foreign body of scalp, initial encounter; E11.9 Type 2 diabetes mellitus without complications; F10.129 Alcohol abuse with intoxication, unspecified; F10.130 Alcohol abuse with withdrawal, uncomplicated; F41.9 Anxiety disorder, unspecified; Z79.84 Long term (current) use of oral hypoglycemic drugs; Z79.899 Other long term (current) drug therapy; X58.XXXA Exposure to other specified factors, initial encounter; Y92.89 Other specified places as the place of occurrence of the external cause; Y93.E1 Activity, personal bathing and showering; Y99.8 Other external cause status; Y90.8 Blood alcohol level of 240 mg/100 ml or more
CPT/HCPCS: 12002; 36415; 70450; 71045; 80048; 80307; 80320; 81001; 82962; 85025; 87081; 90715; 93005; 96374; 96375; G0378; J1815; J2405

== ENCOUNTER 2024-11-30 18:56 | Inpatient (IN) | payer MEDICAID ==
[~2024-11-30] VITALS: Ht 170.2 cm; Wt 60.0 kg
[~2024-11-30 18:56] MED LIST changes: +ATOR40TA52 PO; -GABA-1250 PO; -GLIP5TAB21 PO; +GLUCTES VI; +HYDR-3682 PO; +METF-370 PO; +METF-490 PO; +METF500S3 PO; +SERT-206 PO
--- NOTE | 2024-11-30 19:18 | ED.PDOC ---
History of Present Illness HPI Comments 39-year-old male presents with a chief complaint of request for Detox. Patient states that he needs to be medically cleared so that he may enter a Rehab facility. Patient denies any symptoms at this time. Patients last drink was last night and normally drinks 1 pint of Vodka daily. No other symptoms or modifying factors present at this time. Time Seen by : 19:07 Primary Care Provider: LETICIA Johnson Notes: Medications, Allergies Allergies: Coded Allergies: NO KNOWN ALLERGIES (Unverified , 02/05/22) Home Meds Active Scripts Chlordiazepoxide Hcl (Ni-1) (I (Librium) 10 Mg Cap, 10 MG PO BID for 7 Days, #14 CAP Prov:WANDA LERMA MD 10/24/24 Glucose Blood (Truetest Strips) Bruna, 90 UNIT DAILY for 90 Days, #90 MISC Prov:WANDA LERMA MD 10/24/24 Pantoprazole Sodium Sesquihydr (Protonix) 40 Mg Tab, 40 MG PO DAILY for 30 Days, #30 TAB Prov:JONEL RASHID MD 03/19/23 Thiamine Hcl (VITAMIN B-1) 100 Mg Tb, 100 MG PO BIDAC for 60 Days, #120 TAB Prov:JONEL RASHID MD 03/19/23 B-Complex W/ I-[place]-C-[place] (Dialyvite 5000) 5,000 Mg Tab, 5000 MG PO DAILY for 60 Days, #60 TAB Prov:JONEL RASHID MD 03/19/23 Pantoprazole Sodium Sesquihydr (Protonix) 40 Mg Tab, 40 MG PO DAILY for 30 Days, #30 TAB 3 Refills Prov:VALENTINO MEIER MD 02/07/22 Pancreatic Enzymes (Pancreaze 2600 Unit) 1 Cap Cap, 1 CAP PO TID for 30 Days, #90 CAP 3 Refills Prov:VALENTINO MEIER MD 02/07/22 Multiple Vitamins W/ Minerals (Mvi W/ Minerals Tab) 1 Tab Tb, 1 TAB GT DAILY for 30 Days, #30 TAB 3 Refills Prov:VALENTINO MEIER MD 02/07/22 Reported Medications Metformin Hydrochloride (Metformin Hcl) 500 Mg Tab, 1 TAB PO BID, #60 TAB 3 Refills 10/20/24 Metformin HCl (Metformin Hydrochloride) 500 Mg/5 Ml Fl[place], 500 MG PO, ML 10/20/24 Information Source: Patient Mode of Arrival: Ambulatory Severity: Moderate Timing: Days Duration: Since onset Prehospital treatment: None Vital Signs Vital Signs Date Time Temp Pulse Resp B/P (MAP) Pulse Ox O2 Delivery O2 Flow Rate FiO2 11/30/24 21:05 78 11/30/24 19:15 99.0 18 135/89 (104) 96 99.0 Physical Exam General: Awake, alert and oriented. No acute distress. Skin: Skin in warm, dry and intact without rashes or lesions. HEENT: The head is normocephalic and atraumatic. Conjunctivae are clear without exudates or hemorrhage. Sclera is non-icteric. Neck: Normal range of motion. No JVD. Cardiac: Rapid rate, regular rhythm Respiratory: No signs of respiratory distress. No Stridor. Abdominal: No abdominal tenderness, guarding or distention. Extremities: Upper and lower extremities are atraumatic in appearance without deformity. Neurological: The patient is awake, alert and oriented to person, place, and time with normal speech. Speech is clear. There is no facial asymmetry. Psychiatric: Appropriate mood and affect. Good judgement and insight. Review of Systems: REVIEW OF SYSTEMS: No fever, no chills, or fatigue HEENT: No sore throat, no earache, no congestion, no neck pain. Cardiac: No chest pain. No palpitations. Lungs: No shortness of breath, no cough. GI: No nausea, no vomiting, no diarrhea, no constipation, positive abdominal pain : No dysuria, frequency, or urgency. No hematuria. Musculoskeletal: No joint pain , no joint swelling, no extremity edema. Skin: No rash, no itching. Neuro: No headache, no dizziness, no weakness Psych: Positive anxiety Past Medical History PAST MEDICAL HISTORY: DM Surgical History: Denies all surgeries Family History Family History: Reviewed,noncontributory to illness Social History Smoker: Non-Smoker Alcohol: Heavy Drugs: Cocaine, Marijuana Lives In: Home Was a procedure done? Was a procedure done?: No EKG EKG : Pulse Rate (adult): 78 [place]: Normal Cardiac Rhythm: NSR Block: None Hypertrophy: None ST: Normal Comments No STEMI (independent interpretation) Differential Dx Considerations may include: Alcohol withdrawal, anxiety, drug intoxication, other X-Ray, Labs, Meds, VS Vital Signs Date Time Temp Pulse Resp B/P (MAP) Pulse Ox O2 Delivery O2 Flow Rate FiO2 11/30/24 21:05 78 11/30/24 21:01 78 11/30/24 19:15 99.0 128 18 135/89 (104) 96 99.0 Lab Test 11/30/24 19:30 11/30/24 19:21 Range/Units White Blood Count 4.7 4.4-10.8 10^3/uL Red Blood Count 3.75 L 4.5-5.90 10^6/uL Hemoglobin 9.7 L 13.5-17.5 g/dL Hematocrit 30.6 L 41.0-53.0 % Mean Corpuscular Volume 81.5 80.0-100.0 fL Mean Corpuscular Hemoglobin 25.8 L 28.0-32.0 pg Mean Corpuscular Hemoglobin Concent 31.6 L 32.0-36.0 g/dL Red Cell Distribution Width 21.3 H 11.8-14.3 % Platelet Count 171 140-450 10^3/uL Mean Platelet Volume 7.5 6.9-10.8 fL Neutrophils (%) (Auto) 50.3 37.0-80.0 % Lymphocytes (%) (Auto) 36.0 10.0-50.0 % Monocytes (%) (Auto) 10.8 0.0-12.0 % Eosinophils (%) (Auto) 0.4 0.0-7.0 % Basophils (%) (Auto) 2.5 H 0.0-2.0 % Neutrophils # (Auto) 2.4 1.6-8.6 10 ^3/uL Lymphocytes # (Auto) 1.7 0.4-5.4 10 ^3/uL Monocytes # (Auto) 0.5 0-1.3 10 ^3/uL Eosinophils # (Auto) 0 0-0.8 10 ^3/uL Basophils # (Auto) 0.1 0-0.2 10 ^3/uL Nucleated Red Blood Cells 0.0 % Sodium Level 137 136-145 mmol/L Potassium Level 4.1 3.5-5.1 mmol/L Chloride Level 95 L 98-107 mmol/L Carbon Dioxide Level 28 20-31 mmol/L Anion Gap 14 5-15 Blood Urea Nitrogen 9 9-23 mg/dL Creatinine 1.01 0.700-1.30 mg/dL Glomerular Filtration Rate Calc 96 >90 mL/min BUN/Creatinine Ratio 8.9 L 10.0-20.0 Serum Glucose 297 H 74-106 mg/dL Calcium Level 9.5 8.7-10.4 mg/dL Magnesium Level 1.7 1.6-2.6 mg/dL Total Bilirubin 0.7 0.2-1.0 mg/dL Aspartate Amino Transferase (AST) 131 H 13-40 U/L Alanine Aminotransferase (ALT) 53 H 7-40 U/L Alkaline Phosphatase 161 H 46-116 U/L Total Protein 7.9 5.7-8.2 g/dL Albumin 5.1 H 3.2-4.8 g/dL Lipase 29 12-53 U/L Plasma/Serum Blood Alcohol 433.8 *H <10 mg/dL Urine Color Light-yellow Yellow Urine Clarity Clear Clear Urine pH 6.5 5.0-9.0 Urine Specific [place] 1.010 1.001-1.035 Urine Protein Negative Negative Urine Ketones Negative Negative Urine Blood Negative Negative /uL Urine Nitrite Negative Negative Urine Bilirubin Negative Negative Urine Urobilinogen Normal Negative mg/dL Urine Leukocyte Esterase Negative Negative /uL Urine RBC 1 0 - 3 /hpf Urine Microscopic WBC 7 H 0-3 /HPF Urine Squamous Epithelial Cells Many <5 /hpf Urine Bacteria Few H None Seen /hpf Urine Hyaline Casts Few 0 - 2 /lpf Urine Mucus Few None Seen Urine Glucose 4+ H Normal mg/dL Urine Opiates Screen Neg NEGATIVE Urine Fentanyl Screen Neg NEGATIVE Urine Barbiturates Screen Neg NEGATIVE Urine Phencyclidine Screen Neg NEGATIVE Urine Amphetamines Screen Neg NEGATIVE Urine Benzodiazepines Screen Pos NEGATIVE Urine Cocaine Screen Neg NEGATIVE Urine Cannabinoids Screen Neg NEGATIVE Time of 1ST Reevaluation: 19:37 Reevaluation 1ST: Unchanged Patient Education/Counseling: Other (Need for admission) Family Education/Counseling: No Family Present Departure 1 Departure Time of Disposition: 20:02 Impression: Primary Impression: Alcohol withdrawal Disposition: ADMITTED INPATIENT Condition: Stable Comments 39-year-old male with a history of alcohol abuse, history of alcohol withdrawal, presents with symptoms of alcohol withdrawal. Patient admitted to hospitalist service for further treatment, evaluation and monitoring. Critical Care Note Critical Care Time?: No Stability Stability form required: No Heart Score Heart Score: Heart Score Response (Comments) Value History N/A 0 EKG N/A 0 Age N/A 0 Risk Factors N/A 0 Troponin N/A 0 Total 0 I personally scribed for SHERRIE ALLAN MD ([email or web address]) on 11/30/24 at 19:18. Electronically submitted by [employer] ([email or web address]). I personally scribed for SHERRIE ALLAN MD ([email or web address]) on 11/30/24 at 21:05. El ectronically submitted by [employer] ([email or web address]). SHERRIE ALLAN MD Nov 30, 2024 19:18
[2024-11-30] MEDS ORDERED: LORazepam 0.5 MG TAB PO PRN (19:30)
[2024-11-30 19:40] LABS: Basophils # (auto) 0.1 10 ^3/uL (0-0.2); Eosinophils # (auto) 0 10 ^3/uL (0-0.8); Hematocrit 30.6 % (41.0-53.0); Lymphocytes # (auto) 1.7 10 ^3/uL (0.4-5.4); Mean Corpuscular Hemoglobin 25.8 pg (28.0-32.0); Neutrophils # (auto) 2.4 10 ^3/uL (1.6-8.6)
[2024-11-30 19:42] LABS: Basophils % (auto) 2.5 % (0.0-2.0); Eosinophils % (auto) 0.4 % (0.0-7.0); Hemoglobin 9.7 g/dL (13.5-17.5); Mean Corpuscular Hgb Conc. 31.6 g/dL (32.0-36.0); Mean Corpuscular Volume 81.5 fL (80.0-100.0); Monocytes # (auto) 0.5 10 ^3/uL (0-1.3); Monocytes % (auto) 10.8 % (0.0-12.0); Neutrophils % (auto) 50.3 % (37.0-80.0); Platelet Count (auto) 171 10^3/uL (140-450); Red Blood Cells 3.75 10^6/uL (4.5-5.90); White Blood Cell 4.7 10^3/uL (4.4-10.8)
[2024-11-30 19:43] LABS: Red Cell Distribution Width 21.3 % (11.8-14.3)
[2024-11-30 19:52] LABS: Urine Bacteria FEW /hpf (None Seen); Urine Blood Negative /uL (Negative); Urine Clarity Clear (Clear); Urine Color Light-Yellow (Yellow); Urine Hyaline Cast FEW /lpf (0 - 2); Urine Mucus FEW (None Seen); Urine Protein, UAD Negative (Negative); Urine Squamous Epithelial Cell MANY /hpf (<5); Urine Urobilinogen Normal (Negative); Urine WBC 7 /HPF (0-3); Urine pH 6.5 (5.0-9.0)
[2024-11-30 19:58] LABS: Anion Gap 14 (5-15); BUN/Creatinine Ratio 8.9 (10.0-20.0); Calcium 9.5 mg/dL (8.7-10.4); Carbon Dioxide 28 mmol/L (20-31); Magnesium 1.7 mg/dL (1.6-2.6); Potassium 4.1 mmol/L (3.5-5.1); Sodium 137 mmol/L (136-145); Total Protein 7.9 g/dL (5.7-8.2)
[2024-11-30 19:59] LABS: Bilirubin, Total 0.7 mg/dL (0.2-1.0)
[2024-11-30 20:00] LABS: Alanine Aminotransferase 53 U/L (7-40); Albumin 5.1 g/dL (3.2-4.8); Alkaline Phosphatase 161 U/L (46-116); Aspartate Aminotransferase 131 U/L (13-40); Blood Urea Nitrogen 9 mg/dL (9-23); Chloride 95 mmol/L (98-107); Glucose 297 mg/dL (74-106)
[2024-11-30 20:03] LABS: Benzodiazephine Screen, Urine Pos (NEGATIVE)
[2024-11-30 20:07] LABS: Amphetamine Screen, Urine Neg (NEGATIVE); Barbiturate Scree,Urine Neg (NEGATIVE); Cannabinoid Screen, Urine Neg (NEGATIVE); Cocaine Screen, Urine Neg (NEGATIVE); Opiate Scree,Urine Neg (NEGATIVE); Phencyclidine Screen, Urine Neg (NEGATIVE)
[2024-11-30 20:10] LABS: Lipase 29 U/L (12-53)
[2024-11-30 20:15] LABS: Blood Alcohol 433.8 mg/dL (<10)
[2024-11-30 22:03] LABS: Anion Gap 13 (5-15); BUN/Creatinine Ratio 8.2 (10.0-20.0); Calcium 9.8 mg/dL (8.7-10.4); Carbon Dioxide 28 mmol/L (20-31); Potassium 4.5 mmol/L (3.5-5.1); Sodium 139 mmol/L (136-145); Total Protein 8.1 g/dL (5.7-8.2)
[2024-11-30 22:04] LABS: Bilirubin, Total 0.8 mg/dL (0.2-1.0)
[2024-11-30 22:06] LABS: Alanine Aminotransferase 54 U/L (7-40); Albumin 5.2 g/dL (3.2-4.8); Alkaline Phosphatase 164 U/L (46-116); Aspartate Aminotransferase 126 U/L (13-40); Blood Urea Nitrogen 8 mg/dL (9-23); Chloride 98 mmol/L (98-107); Glucose 211 mg/dL (74-106)
--- NOTE | 2024-11-30 22:45 | DVHHP2 ---
History of Present Illness Reason for Visit: Alcohol withdrawal History of Present Illness 39-year-old male with a history of alcoholism presents for evaluation of possible alcohol withdrawal symptoms. He reports a one day history of having tremors, nausea and palpitations. He seeks systems to be in place at a detox facility. No other acute complaints reported. Past Medical History Alcoholism, diabetes mellitus Past Surgical History Denies Family History Noncontributory Smoke: No ALCOHOL: heavy Drugs: Cocaine, Marijuana Review of Systems Review of Systems Review of systems are currently negative otherwise addressed in HPI. Allergies: Coded Allergies: NO KNOWN ALLERGIES (Unverified , 02/05/22) Medications Current Medications Medications Dose Ordered Sig/[place] Route Start Time Stop Time Status Last Admin Dose Admin Chlordiazepoxide HCl 50 mg Q8HR PO 11/30/24 22:00 12/01/24 14:01 Chlordiazepoxide HCl 50 mg Q12HR PO 12/01/24 22:00 12/02/24 10:01 Chlordiazepoxide HCl 25 mg Q12HR PO 12/02/24 22:00 12/03/24 10:01 Chlordiazepoxide HCl 25 mg QAM PO 12/04/24 07:00 12/04/24 07:01 Thiamine HCl 100 mg DAILY PO 12/01/24 10:00 Folic Acid 1 mg DAILY PO 12/01/24 10:00 Ondansetron HCl 4 mg Q4HP PRN IV 11/30/24 21:15 Exam Vital Signs Vital Signs Date Time Temp Pulse Resp B/P (MAP) Pulse Ox O2 Delivery O2 Flow Rate FiO2 11/30/24 21:05 78 11/30/24 19:15 99.0 18 135/89 (104) 96 99.0 Exam Gen: 39-year-old male in no apparent distress Skin: Warm, dry, normal color and texture, no rash. HEENT: Normocephalic atraumatic, mucous membranes moist and pink. Neck: Cervical and supraclavicular nodes normal without enlargement, trachea is midline, thyroid gland is normal without masses. Pulmonary: Clear to auscultation and percussion bilaterally. Cardiac: Regular rate and rhythm. No murmur Abdomen: Soft, nontender, nondistended, bowel sounds present all 4 quadrants, no guarding, no rigidity, no organomegaly. Extremities: No cyanosis, clubbing, no edema Neuro: Cranial nerves II through XII grossly intact, normal affect and speech, no focal motor deficits. Labs/Xrays Labs Test 11/30/24 21:27 11/30/24 19:30 11/30/24 19:21 Range/Units Sodium Level 139 136-145 mmol/L Potassium Level 4.5 3.5-5.1 mmol/L Chloride Level 98 98-107 mmol/L Carbon Dioxide Level 28 20-31 mmol/L Anion Gap 13 5-15 Blood Urea Nitrogen 8 L 9-23 mg/dL Creatinine 0.98 0.700-1.30 mg/dL Glomerular Filtration Rate Calc 100 >90 mL/min BUN/Creatinine Ratio 8.2 L 10.0-20.0 Serum Glucose 211 H 74-106 mg/dL Calcium Level 9.8 8.7-10.4 mg/dL Total Bilirubin 0.8 0.2-1.0 mg/dL Aspartate Amino Transferase (AST) 126 H 13-40 U/L Alanine Aminotransferase (ALT) 54 H 7-40 U/L Alkaline Phosphatase 164 H 46-116 U/L Total Protein 8.1 5.7-8.2 g/dL Albumin 5.2 H 3.2-4.8 g/dL White Blood Count 4.7 4.4-10.8 10^3/uL Red Blood Count 3.75 L 4.5-5.90 10^6/uL Hemoglobin 9.7 L 13.5-17.5 g/dL Hematocrit 30.6 L 41.0-53.0 % Mean Corpuscular Volume 81.5 80.0-100.0 fL Mean Corpuscular Hemoglobin 25.8 L 28.0-32.0 pg Mean Corpuscular Hemoglobin Concent 31.6 L 32.0-36.0 g/dL Red Cell Distribution Width 21.3 H 11.8-14.3 % Platelet Count 171 140-450 10^3/uL Mean Platelet Volume 7.5 6.9-10.8 fL Neutrophils (%) (Auto) 50.3 37.0-80.0 % Lymphocytes (%) (Auto) 36.0 10.0-50.0 % Monocytes (%) (Auto) 10.8 0.0-12.0 % Eosinophils (%) (Auto) 0.4 0.0-7.0 % Basophils (%) (Auto) 2.5 H 0.0-2.0 % Neutrophils # (Auto) 2.4 1.6-8.6 10 ^3/uL Lymphocytes # (Auto) 1.7 0.4-5.4 10 ^3/uL Monocytes # (Auto) 0.5 0-1.3 10 ^3/uL Eosinophils # (Auto) 0 0-0.8 10 ^3/uL Basophils # (Auto) 0.1 0-0.2 10 ^3/uL Nucleated Red Blood Cells 0.0 % Magnesium Level 1.7 1.6-2.6 mg/dL Lipase 29 12-53 U/L Plasma/Serum Blood Alcohol 433.8 *H <10 mg/dL Urine Color Light-yellow Yellow Urine Clarity Clear Clear Urine pH 6.5 5.0-9.0 Urine Specific [place] 1.010 1.001-1.035 Urine Protein Negative Negative Urine Ketones Negative Negative Urine Blood Negative Negative /uL Urine Nitrite Negative Negative Urine Bilirubin Negative Negative Urine Urobilinogen Normal Negative mg/dL Urine Leukocyte Esterase Negative Negative /uL Urine RBC 1 0 - 3 /hpf Urine Microscopic WBC 7 H 0-3 /HPF Urine Squamous Epithelial Cells Many <5 /hpf Urine Bacteria Few H None Seen /hpf Urine Hyaline Casts Few 0 - 2 /lpf Urine Mucus Few None Seen Urine Glucose 4+ H Normal mg/dL Urine Opiates Screen Neg NEGATIVE Urine Fentanyl Screen Neg NEGATIVE Urine Barbiturates Screen Neg NEGATIVE Urine Phencyclidine Screen Neg NEGATIVE Urine Amphetamines Screen Neg NEGATIVE Urine Benzodiazepines Screen Pos NEGATIVE Urine Cocaine Screen Neg NEGATIVE Urine Cannabinoids Screen Neg NEGATIVE Assessment/Plan Assessment/Plan Assessment Alcohol intoxication Transaminitis, possible liver cirrhosis Uncontrolled diabetes mellitus Plan Admit the patient to [facility] to the hospitalist Librium taper Thiamine/folic acid Maintenance IV fluids Social service consult Continue treatment per orders. Plan discussed with: Patient My Orders Orders - VALENTINO GUILLERMO AGACNP Procedure Category Date Status Time Chlordiazepoxide Hcl PHA 11/30/24 In Process Capsule (Librium Ca 22:00 Chlordiazepoxide Hcl PHA 12/01/24 In Process Capsule (Librium Ca 22:00 Chlordiazepoxide Hcl PHA 12/02/24 In Process Capsule (Librium Ca 22:00 Sodium Chloride 0.9% PHA 11/30/24 In Process 21:15 Thiamine Tab PHA 12/01/24 In Process 10:00 Folic Acid Tablet PHA 12/01/24 In Process 10:00 Admit ADMIT 11/30/24 Transmitted 21:13 Ondansetron Hcl PHA 11/30/24 In Process (Zofran) 21:15 Condition: Stable MIROSLAVA 11/30/24 In Process 21:13 Bedrest With Bathroom MIROSLAVA 11/30/24 In Process Privileg 21:13 * Line O Scribe Operator CONS 11/30/24 Transmitted Consult Regular Diet DIET 12/01/24 Transmitted Breakfast Chlordiazepoxide Hcl PHA 12/04/24 In Process Capsule (Librium Ca 07:00 Date of Service: Nov 30, 2024 Billing Provider: VALENTINO GUILLERMO Common Visit Codes: [id number] INP/OBS CARE (HIGH) VALENTINO GUILLERMO Nov 30, 2024 22:45
--- NOTE | 2024-11-30 23:11 | ECG ---
[facility] Test Date: 2024-11-30 Test Time: 21:01:16 Pat Name: GENESIS HOUSE Department: ER Room: 0271 Gender: M Fundraiser: ER : 1985 Requested By: SHERRIE ALLAN Order Number: [id number] Reading MD: Kojo Herr Measurements Intervals [place] Rate: 78 P: 66 MS: 120 QRS: 88 QRSD: 89 T: 54 QT: 398 QTc: 454 Interpretive Statements Sinus rhythm Baseline wander in lead(s) V6 Electronically Signed On 12-01-2024 21:09:39 PDT by Kojo Herr Please click the below link to view image of tracing.
[2024-12-01] MEDS: FOLIC ACID 1 MG TAB PO ONE (03:56)
[2024-12-01] MEDS: MULTIPLE VITAMIN TAB PO ONE (03:56)
[2024-12-01] MEDS: THIAMINE HCL 100 MG TAB PO ONE (03:56)
[2024-12-01] MEDS: chlordiazePOXIDE HCL 25 MG CAP PO SCH ×2 (03:56→22:40)
[2024-12-01] MEDS: SODIUM CHLORIDE 0.9% 1,000 ML IVB ONE (03:56)
[2024-12-01 04:01] VITALS: PULSE 95; RESP 16; O2SAT 97
[2024-12-01] MEDS: SODIUM CHLORIDE 0.9% 1,000 ML IV ONE ×2 (04:01→09:42)
[2024-12-01] MEDS: ONDANSETRON HCL 4 MG/2 ML VIAL IV PRN (07:54)
[2024-12-01] MEDS ORDERED: ACETAMINOPHEN 325 MG TAB PO PRN (08:00)
--- NOTE | 2024-12-01 08:50 | DVH ---
INDICATION: RULE OUT CIRRHOSIS OF LIVER/CBD Obstruction TECHNIQUE: Multiple real-time sonographic images of the abdomen were obtained. COMPARISON: ABDL on DOS: 02/06/22, ABDOMEN LIMITED on DOS: 02/06/22 FINDINGS: The liver is heterogeneous in echogenicity. The liver measures 16cm. No intrahepatic bilia ry ductal dilatation is noted. Possible 1 cm hypoechoic mass left hepatic lobe. MRI liver mass protoc ol recommended The gallbladder wall measures 0.1 cm and is unremarkable. 6 mm gallbladder polyp. 1 cm and is unrem arkable. No pericholecystic fluid is noted. The right kidney measures 10cm. No hydronephrosis. T The pancreas is not well visualized due to obscuration from bowel gas. The visualized portions of the IVC and aorta are grossly unremarkable. IMPRESSION: Dilated common bile duct. MRCP recommended. 6 mm gallbladder polyp. 1 cm hypoechoic left hepatic lobe mass. CT recommended.
[2024-12-01 09:35] LABS: Albumin 4.8 g/dL (3.2-4.8); Anion Gap 12 (5-15); Bilirubin, Total 1.1 mg/dL (0.2-1.0); Calcium 9.7 mg/dL (8.7-10.4); Carbon Dioxide 26 mmol/L (20-31); Chloride 99 mmol/L (98-107); Sodium 137 mmol/L (136-145); Total Protein 7.4 g/dL (5.7-8.2)
[2024-12-01 09:38] LABS: Alanine Aminotransferase 53 U/L (7-40); Alkaline Phosphatase 148 U/L (46-116); Aspartate Aminotransferase 140 U/L (13-40); Blood Urea Nitrogen 7 mg/dL (9-23); Glucose 137 mg/dL (74-106); Magnesium 1.4 mg/dL (1.6-2.6)
[2024-12-01] MEDS: LORazepam 2MG/ML-1ML VIAL IV ONE (09:41)
[2024-12-01] MEDS: THIAMINE HCL 100 MG TAB PO SCH (09:41)
[2024-12-01] MEDS: FOLIC ACID 1 MG TAB PO SCH (09:41)
--- NOTE | 2024-12-01 09:54 | DVH ---
Exam: CT CT AB PEL WO CON-NO ORAL OR IV History: RULE OUT HEPATIC MASS OR CIRRHOSIS OF LIVER OR CBD OBSTRUCTI Comparison Study: CT ABD PELVIS WO CONTRAST on DOS: 02/05/22 Technique: Multidetector spiral CT of the abdomen was performed from lung bases to pubic symphysis. I maging was performed without IV contrast. Axial, coronal and sagittal multiplanar reformats were obta ined from the axial data set by the technologist. Radiation Dose : 1. Abdomen/Pelvis: CTDIvol 5.07 mGy, DLP 300.26 mGy*cm. Findings: Evaluation of solid organs is limited due to lack of intravenous contrast use. Lung Bases: No acute or significant lung base finding. Normal heart size. No pleural or pericardial effusion. Liver: Hepatic steatosis and hepatomegaly. Gallbladder and Biliary Tree: Unremarkable Spleen: Unremarkable Pancreas: Unchanged cystic lesion in the pancreatic tail measures 2.0 cm. Mild notice and Adrenal Glands: Unremarkable Kidneys: Kidneys are grossly normal without calculi or hydronephrosis. Bladder: Grossly unremarkable for degree of distention. Bowel: The stomach is grossly normal in appearance. Small bowel and colon are normal in caliber and d istribution. The appendix is not visualized; however, no secondary findings of acute appendicitis lázaro ntified. Ascites: Absent Lymphadenopathy: No mesenteric, retroperitoneal or periportal lymphadenopathy. Abdominal Wall and Mesentery: Unremarkable. Vasculature: The visualized abdominal aorta is normal in size and caliber. Evaluation of abdominal a nd pelvic vessels is limited due to lack of intravenous contrast. Pelvic Organs: Unremarkable Musculoskeletal: No aggressive focal bony lesions, acute fractures or dislocation. IMPRESSION: Hepatic steatosis and mild hepatomegaly. 2 cm cystic lesion in the pancreatic tail. this could be fu rther evaluated with nonemergent MRCP without and with intravenous contrast. Radiation optimization: All CT scans at this facility use at least one of these dose optimization royal hniques: automated exposure control mA and/or kV adjustment per patient size (includes targeted exam s where dose is matched to clinical indication) or iterative reconstruction.
--- NOTE | 2024-12-01 09:56 | DVHPNRES ---
Progress Note Date Seen: Dec 01, 2024 Resident Creating Document: BRENNAN FRIED RESIDENT Medical Necessity Reason Pt with a Central, PICC or Fol: No Subjective Review of Systems Patient is 39 years old male with past medical history of alcoholism, history of hepatic steatosis, history of dilated CBD, history of alcoholic pancreatitis came with a complaint of symptoms of alcohol withdrawal. As per patient patient drank alcohol up yesterday around 2:00 a.m.. Lately he has been feeling tremor, nausea but no vomiting, mild headache and and mildly anxious. He came for the evaluation of alcohol withdrawal and to get a placement for alcohol rehab. Initial lab workup was positive for plasma alcohol 433. UDS positive for benzodiazepine. Hemoglobin 9.7, total bilirubin 0.7, AST 131, ALT 161, phosphatase 161. HGB A1c 6.1. Ultrasound of the abdomen revealed-Dilated common bile duct. MRCP recommended.6 mm gallbladder polyp. 1 cm hypoechoic left hepatic lobe mass. PMH-history of alcoholism, history of hepatic steatosis, history of dilated CBD, history of alcoholic pancreatitis PSH- denied Allergy- NKDA Personal History/ Social History- alcoholic, vapes, ex marijuana and cocaine abuse Patient was seen today at the bedside. Cardiovascular- deny acute chest pain or shortness of breath or cough or palpitation Respiratory denies cough or short of breath or wheezing Gastrointestinal- denies any rectal bleeding, nausea or vomiting Musculoskeletal-denies acute joint swelling or tenderness or redness Neurological- denies acute dysarthria, dysphagia, change in vision Psychiatry- denies depression or SI or HI Skin- denies acute rash or purpura Patient was seen today for clinical evaluation. Labs and chart reviewed. Patient is still has some hand tremor on extension of the hand. Ultrasound of the abdomen revealed-Dilated common bile duct. MRCP recommended.6 mm gallbladder polyp. 1 cm hypoechoic left hepatic lobe mass. Objective vital signs Vital Sign Date Time Temp Pulse Resp B/P (MAP) Pulse Ox O2 Delivery O2 Flow Rate FiO2 12/01/24 09:44 95 20 133/85 (101) 100 12/01/24 07:56 98.3 98.3 12/01/24 07:56 Room Air 12/01/24 04:01 0 21 Total Intake and Output 11/30/24 11/30/24 12/01/24 15:00 23:00 07:00 Intake Total 1000 ml Balance 1000 ml medications Current Medications Medications Dose Ordered Sig/[place] Route Start Time Stop Time Status Last Admin Dose Admin Chlordiazepoxide HCl 50 mg Q8HR PO 11/30/24 22:00 12/01/24 14:01 12/01/24 03:56 50 MG Chlordiazepoxide HCl 50 mg Q12HR PO 12/01/24 22:00 12/02/24 10:01 Chlordiazepoxide HCl 25 mg Q12HR PO 12/02/24 22:00 12/03/24 10:01 Chlordiazepoxide HCl 25 mg QAM PO 12/04/24 07:00 12/04/24 07:01 Thiamine HCl 100 mg DAILY PO 12/01/24 10:00 12/01/24 09:41 100 MG Folic Acid 1 mg DAILY PO 12/01/24 10:00 12/01/24 09:41 1 MG Ondansetron HCl 4 mg Q4HP PRN IV 11/30/24 21:15 12/01/24 07:54 4 MG Thiamine HCl 100 mg DAILY IV 12/01/24 10:00 UNV Folic Acid 1 mg DAILY PO 12/01/24 10:00 UNV Acetaminophen 650 mg Q4HP PRN PO 12/01/24 08:00 UNV Folic Acid 1 mg/ Multivitamins 10 ml/Magnesium Sulfate 8 meq/ Thiamine HCl 100 mg/Dextrose 1,013.2 ml @ 125.001 mls/hr DAILY@1800 INJ 12/01/24 18:00 UNV Examination General examination- awake and alert, conversive HEENT- PEERLA, no acute nasal discharge Cardiovascular- S1-S2 audible, rate and rhythm regular, no murmur Respiratory- CTAB, no wheeze or rhonchi Gastrointestinal-nontender, bowel sound+. Nondistended Musculoskeletal-no acute joint swelling or tenderness or redness Lower extremity- no leg edema Neurological- cranial nerves intact, no acute dysarthria or dysphagia Psychiatry- denies depression or SI or HI Skin- no acute rash or purpura laboratory and microbiology Laboratory Tests 12/01/24 09:05 11/30/24 19:30 Test 12/01/24 09:05 Range/Units Serum Glucose 137 H 74-106 mg/dL Problem List/Assessment/Plan Problem List/Assessment/Plan Assessment and plan # toxic encephalopathy likely due to acute alcohol withdrawal -continue current management -avoid dehydration # acute alcohol withdrawal-CIWA Score 5 -continue current management -continue IV fluid as prescribed -continue vitamin supplement as prescribed # transaminitis -monitor CMP # hepatic steatosis with mild hepatomegaly # gallbladder polyp # dilated CBD # iron-deficiency anemia -pending fecal occult blood test -monitor CBC #Prediabetes -low-carbohydrate diet # Pancreatic cyst in the tail -2 cm cystic lesion in the pancreatic tail. Goals of care, Code status ; discussed with >15 minutes PUD prophylaxis: Pantoprazole DVT prophylaxis: Patient ambulating Plan discussed with Dr. Conn , nursing staff, Total time spent on patient evaluation, chart review, assessment and plan, discussion discussion >35 minutes Plan discussed with: Patient, Other (RN) My Orders My Orders Orders - BRENNAN FRIED Procedure Category Date Status Time Thiamine Inj PHA 12/01/24 Logged 10:00 Folic Acid Tablet PHA 12/01/24 Logged 10:00 Abdomen Limited US 12/01/24 Resulted 07:55 Acute Hepatitis Panel LAB 12/01/24 In Process 07:56 Hepatitis B Surface LAB 12/01/24 In Process Antigen 07:56 Hepatitis B Core Igm LAB 12/01/24 In Process 07:56 Hepatitis B Core LAB 12/01/24 In Process Total Antibod 07:56 Hepatitis B Surface LAB 12/01/24 In Process Antibody 07:56 Hepatitis C Antibody LAB 12/01/24 In Process 07:56 Folic Acid... PHA 12/01/24 Logged 18:00 Ct Ab Pel Wo Con-No CT 12/01/24 Taken Oral Or Iv 08:01 Date of Service: Dec 01, 2024 Billing Provider: BRIAN KNOWLES MD Common Visit Codes: [id number] INP/OBS CARE(HIGH) BRENNAN FRIED Dec 01, 2024 09:56 BRIAN KNOWLES MD Dec 08, 2024 01:38
[2024-12-01 10:07] LABS: Basophils # (auto) 0.1 10 ^3/uL (0-0.2); Basophils % (auto) 2.2 % (0.0-2.0); Eosinophils # (auto) 0 10 ^3/uL (0-0.8); Eosinophils % (auto) 0.5 % (0.0-7.0); Hematocrit 29.2 % (41.0-53.0); Lymphocytes # (auto) 1.1 10 ^3/uL (0.4-5.4); Lymphocytes % (auto) 30.6 % (10.0-50.0); Mean Corpuscular Hemoglobin 25.4 pg (28.0-32.0); Mean Corpuscular Volume 82.2 fL (80.0-100.0); Monocytes # (auto) 0.4 10 ^3/uL (0-1.3); Monocytes % (auto) 11.4 % (0.0-12.0); Neutrophils % (auto) 55.3 % (37.0-80.0); Nucleated Red Blood Cells % 0.1 %; Platelet Count (auto) 152 10^3/uL (140-450); Red Blood Cells 3.55 10^6/uL (4.5-5.90); White Blood Cell 3.5 10^3/uL (4.4-10.8)
[2024-12-01 10:08] LABS: Red Cell Distribution Width 21.4 % (11.8-14.3)
[2024-12-01] MEDS: SODIUM CHLORIDE 0.9% 1,000 ML IV SCH (10:20)
[2024-12-01 10:28] LABS: % Iron Saturation 9.1 % (20-55)
[2024-12-01 10:43] LABS: Hepatitis A Ab IgM Negative; Hepatitis B Core IgM Negative (Negative); Hepatitis B Surface Antibody Positive (Negative); Hepatitis B Surface Antigen Negative (Negative); Hepatitis C Antibody Negative (Negative)
[2024-12-01] MEDS: MAGNESIUM SULFATE 1GM/100ML 100 ML IV SCH (13:48)
[2024-12-01] MEDS: THIAMINE 100mg/ml INJ (200mg/2ml VIAL) IV SCH (15:29)
[2024-12-01 18:57] VITALS: BP 120/79; PULSE 94; RESP 20; TEMP 99.4; O2SAT 97
[2024-12-01 19:03] VITALS: RESP 18; O2SAT 98
[2024-12-01 19:38] VITALS: BP 120/79; PULSE 94; RESP 20; TEMP 99.4; O2SAT 97
[2024-12-01 20:00] VITALS: PULSE 94; RESP 18; O2SAT 97
[2024-12-01] MEDS: FOLIC ACID 1 MG, MULTIPLE VITAMIN 10 ML, MAGNESIUM SULF SDV 50% 8 MEQ, THIAMINE INJ 100... INJ SCH (20:36)
[2024-12-01 21:00] VITALS: BP_SYST 120; BP_SYST 92; BP_DIAS 55; BP_DIAS 79; PULSE 84; PULSE 94; RESP 18; RESP 20; TEMP 98.2; TEMP 99.4; O2SAT 100; O2SAT 97
[2024-12-02] VITALS (7 sets, daily range): BP systolic 120–139; BP diastolic 83–96; PULSE 72–108; RESP 19–21; TEMP 98.2–99.5; O2SAT 78–100
[2024-12-02] MEDS: FERROUS SULFATE 325mg EC TAB PO ONE (09:45)
[2024-12-02] MEDS ORDERED: FOLIC ACID 1 MG TAB PO SCH (10:00)
[2024-12-02] MEDS: THIAMINE HCL 100 MG TAB PO ONE (10:08)
[2024-12-02 10:15] LABS: Basophils % (auto) 1.3 % (0.0-2.0); Eosinophils # (auto) 0.1 10 ^3/uL (0-0.8); Lymphocytes # (auto) 0.9 10 ^3/uL (0.4-5.4); Mean Corpuscular Hemoglobin 26.1 pg (28.0-32.0); Neutrophils # (auto) 2.3 10 ^3/uL (1.6-8.6); Red Blood Cells 3.45 10^6/uL (4.5-5.90); White Blood Cell 3.8 10^3/uL (4.4-10.8)
[2024-12-02 10:17] LABS: Basophils # (auto) 0.1 10 ^3/uL (0-0.2); Eosinophils % (auto) 3.7 % (0.0-7.0); Hematocrit 28.7 % (41.0-53.0); Mean Corpuscular Hgb Conc. 31.5 g/dL (32.0-36.0); Monocytes # (auto) 0.5 10 ^3/uL (0-1.3); Nucleated Red Blood Cells % 0.1 %; Platelet Count (auto) 127 10^3/uL (140-450)
[2024-12-02 10:31] LABS: Alanine Aminotransferase 40 U/L (7-40); Albumin 3.9 g/dL (3.2-4.8); Anion Gap 7 (5-15); Carbon Dioxide 27 mmol/L (20-31); Chloride 101 mmol/L (98-107); Potassium 4.1 mmol/L (3.5-5.1); Total Protein 6.2 g/dL (5.7-8.2)
[2024-12-02 10:33] LABS: Alkaline Phosphatase 124 U/L (46-116); Aspartate Aminotransferase 75 U/L (13-40); BUN/Creatinine Ratio 6.7 (10.0-20.0); Blood Urea Nitrogen < 5 mg/dL (9-23); Glucose 159 mg/dL (74-106); Sodium 135 mmol/L (136-145)
--- NOTE | 2024-12-02 15:22 | DVHDSRES ---
Discharge Summary Date of Admission Resident Creating Document: BRENNAN FRIED RESIDENT Nov 30, 2024 at 21:13 Date of Discharge: Dec 02, 2024 Admitting Diagnosis Acute Alcohol withdrawal Labs/Diagnostic Data: Laboratory Results Test 12/02/24 13:19 12/02/24 09:39 12/01/24 09:05 11/30/24 19:30 Stool Occult Blood Negative (Negative) Stool Occult Blood Sample #3 (Negative) White Blood Count 3.8 10^3/uL (4.4-10.8) Red Blood Count 3.45 10^6/uL (4.5-5.90) Hemoglobin 9.0 g/dL (13.5-17.5) Hematocrit 28.7 % (41.0-53.0) Mean Corpuscular Volume 83.0 fL (80.0-100.0) Mean Corpuscular Hemoglobin 26.1 pg (28.0-32.0) Mean Corpuscular Hemoglobin Concent 31.5 g/dL (32.0-36.0) Red Cell Distribution Width 21.0 % (11.8-14.3) Platelet Count 127 10^3/uL (140-450) Mean Platelet Volume 8.3 fL (6.9-10.8) Neutrophils (%) (Auto) 59.0 % (37.0-80.0) Lymphocytes (%) (Auto) 24.0 % (10.0-50.0) Monocytes (%) (Auto) 12.0 % (0.0-12.0) Eosinophils (%) (Auto) 3.7 % (0.0-7.0) Basophils (%) (Auto) 1.3 % (0.0-2.0) Neutrophils # (Auto) 2.3 10 ^3/uL (1.6-8.6) Lymphocytes # (Auto) 0.9 10 ^3/uL (0.4-5.4) Monocytes # (Auto) 0.5 10 ^3/uL (0-1.3) Eosinophils # (Auto) 0.1 10 ^3/uL (0-0.8) Basophils # (Auto) 0.1 10 ^3/uL (0-0.2) Nucleated Red Blood Cells 0.1 % Sodium Level 135 mmol/L (136-145) Potassium Level 4.1 mmol/L (3.5-5.1) Chloride Level 101 mmol/L (98-107) Carbon Dioxide Level 27 mmol/L (20-31) Anion Gap 7 (5-15) Blood Urea Nitrogen < 5 mg/dL (9-23) Creatinine 0.75 mg/dL (0.700-1.30) Glomerular Filtration Rate Calc 117 mL/min (>90) BUN/Creatinine Ratio 6.7 (10.0-20.0) Serum Glucose 159 mg/dL (74-106) Calcium Level 9.0 mg/dL (8.7-10.4) Total Bilirubin 1.0 mg/dL (0.2-1.0) Aspartate Amino Transferase (AST) 75 U/L (13-40) Alanine Aminotransferase (ALT) 40 U/L (7-40) Alkaline Phosphatase 124 U/L (46-116) Total Protein 6.2 g/dL (5.7-8.2) Albumin 3.9 g/dL (3.2-4.8) Hemoglobin A1c 6.1 % A1C (<5.7) Magnesium Level 1.4 mg/dL (1.6-2.6) Iron Level 36 ug/dL (65-175) Total Iron Binding Capacity 394 ug/dL (250-425) Percent Iron Saturation 9.1 % (20-55) Ferritin 16.6 ng/mL (22-322) Thyroid Stimulating Hormone (TSH) 1.61 uIU/mL (0.55-4.78) Hepatitis A IgM Antibody Negative Hepatitis B Surface Antigen Negative (Negative) Hepatitis B Surface Antibody Positive (Negative) Hepatitis B Core Total Antibody Negative (Negative) Hepatitis B Core IgM Antibody Negative (Negative) Hepatitis C Antibody Negative (Negative) Lipase 29 U/L (12-53) Plasma/Serum Blood Alcohol 433.8 mg/dL (<10) Test 11/30/24 19:21 Urine Color Light-yellow (Yellow) Urine Clarity Clear (Clear) Urine pH 6.5 (5.0-9.0) Urine Specific [place] 1.010 (1.001-1.035) Urine Protein Negative (Negative) Urine Ketones Negative (Negative) Urine Blood Negative /uL (Negative) Urine Nitrite Negative (Negative) Urine Bilirubin Negative (Negative) Urine Urobilinogen Normal mg/dL (Negative) Urine Leukocyte Esterase Negative /uL (Negative) Urine RBC 1 /hpf (0 - 3) Urine Microscopic WBC 7 /HPF (0-3) Urine Squamous Epithelial Cells Many /hpf (<5) Urine Bacteria Few /hpf (None Seen) Urine Hyaline Casts Few /lpf (0 - 2) Urine Mucus Few (None Seen) Urine Glucose 4+ mg/dL (Normal) Urine Opiates Screen Neg (NEGATIVE) Urine Fentanyl Screen Neg (NEGATIVE) Urine Barbiturates Screen Neg (NEGATIVE) Urine Phencyclidine Screen Neg (NEGATIVE) Urine Amphetamines Screen Neg (NEGATIVE) Urine Benzodiazepines Screen Pos (NEGATIVE) Urine Cocaine Screen Neg (NEGATIVE) Urine Cannabinoids Screen Neg (NEGATIVE) Other Laboratory Tests 12/02/24 09:39 Brief Hx & Hospital Course: Patient is 39 years old male with past medical history of alcoholism, history of hepatic steatosis, history of dilated CBD, history of alcoholic pancreatitis came with a complaint of symptoms of alcohol withdrawal. As per patient patient drank alcohol up yesterday around 2:00 a.m.. Lately he has been feeling tremor, nausea but no vomiting, mild headache and and mildly anxious. He came for the evaluation of alcohol withdrawal and to get a placement for alcohol rehab. Initial lab workup was positive for plasma alcohol 433. UDS positive for benzodiazepine. Hemoglobin 9.7, total bilirubin 0.7, AST 131, ALT 161, phosphatase 161. HGB A1c 6.1. Ultrasound of the abdomen revealed-Dilated common bile duct. MRCP recommended.6 mm gallbladder polyp. 1 cm hypoechoic left hepatic lobe mass. FOBT negative . Hospital course-Patient is 39 years old male with past medical history of alcoholism, history of hepatic steatosis, history of dilated CBD, history of alcoholic pancreatitis came with a complaint of symptoms of alcohol withdrawal. As per patient patient drank alcohol up yesterday around 2:00 a.m.. Lately he has been feeling tremor, nausea but no vomiting, mild headache and and mildly anxious. He came for the evaluation of alcohol withdrawal and to get a placement for alcohol rehab. Initial lab workup was positive for plasma alcohol 433. UDS positive for benzodiazepine. Hemoglobin 9.7, total bilirubin 0.7, AST 131, ALT 161, phosphatase 161. HGB A1c 6.1. Ultrasound of the abdomen revealed-Dilated common bile duct. MRCP recommended.6 mm gallbladder polyp. 1 cm hypoechoic left hepatic lobe mass. FOBT negative. Patient's symptom improved gradually with conservative management. Patient was adamant about going home today. Patient was discharged with folic acid 1 mg p.o. daily, thiamine 100 mg p.o. daily, ferrous sulfate 325 mg p.o. daily, pantoprazole 40 mg p.o. daily, patient was advised to follow up with the primary care physician in 1 week and also to follow up at the discharge clinic in 1 week. Patient was counseled about the effect of alcoholism on health. Patient was provided information regarding alcohol rehab. Patient's med were sent to the pharmacy electronically. Patient was hemodynamically stable on discharge. Assessment # toxic encephalopathy likely due to acute alcohol withdrawal # alcohol intoxication ruled out # acute alcohol withdrawal-CIWA Score 0 # transaminitis # hepatic steatosis with mild hepatomegaly # gallbladder polyp # dilated CBD # iron-deficiency anemia #Prediabetes # Pancreatic cyst in the tail Discharge plan Continue folic acid 1 mg p.o. daily Thiamine 100 mg p.o. daily Ferrous sulfate 325 mg p.o. daily Pantoprazole 40 mg p.o. daily for 2 weeks Patient was advised to follow up in the discharge clinic in 1 week Please follow up with the primary care physician in 1 week Patient was advised to follow up with the stitcher special machine for further evaluation of hepatic steatosis with hepatomegaly, gallbladder polyp, dilated CBD. Patient was provided with the alcohol rehab information booklets Patient was counseled about the effect of alcoholism on health Operations or Procedures [place] [address] Ph: [phone] DIAGNOSTIC IMAGING Diagnostic Imaging Report : [id number] Signed PATIENT: GENESIS HOUSE ACCT: [id number] UNIT: [id number] : 1985 [facility]GE / SEX: 39 / M ADM STATUS: ADM IN SERVICE 0801 ORDERING PHYSICIAN: BRENNAN FRIED RESIDENT PROCEDURE(s): ABPL - CT AB PEL WO CON-NO ORAL OR IV REASON: RULE OUT HEPATIC MASS OR CIRRHOSIS OF LIVER OR CBD OBSTRUCTI ORDER NUMBER(s): [id number], ACCESSION NUMBER(s): [id number] Exam: CT CT AB PEL WO CON-NO ORAL OR IV History: RULE OUT HEPATIC MASS OR CIRRHOSIS OF LIVER OR CBD OBSTRUCTI Comparison Study: CT ABD PELVIS WO CONTRAST on DOS: 02/05/22 Technique: Multidetector spiral CT of the abdomen was performed from lung bases to pubic symphysis. Imaging was performed without IV contrast. Axial, coronal and sagittal multiplanar reformats were obtained from the axial data set by the technologist. Radiation Dose : 1. Abdomen/Pelvis: CTDIvol 5.07 mGy, DLP 300.26 mGy*cm. Findings: Evaluation of solid organs is limited due to lack of intravenous contrast use. Lung Bases: No acute or significant lung base finding. Normal heart size. No pleural or pericardial effusion. Liver: Hepatic steatosis and hepatomegaly. Gallbladder and Biliary Tree: Unremarkable Spleen: Unremarkable Pancreas: Unchanged cystic lesion in the pancreatic tail measures 2.0 cm. Mild notice and Adrenal Glands: Unremarkable Kidneys: Kidneys are grossly normal without calculi or hydronephrosis. Bladder: Grossly unremarkable for degree of distention. Bowel: The stomach is grossly normal in appearance. Small bowel and colon are normal in caliber and distribution. The appendix is not visualized; however, no secondary findings of acute appendicitis identified. Ascites: Absent Lymphadenopathy: No mesenteric, retroperitoneal or periportal lymphadenopathy. Abdominal Wall and Mesentery: Unremarkable. Vasculature: The visualized abdominal aorta is normal in size and caliber. Evaluation of abdominal and pelvic vessels is limited due to lack of intravenous contrast. Pelvic Organs: Unremarkable Musculoskeletal: No aggressive focal bony lesions, acute fractures or dislocation. IMPRESSION: Hepatic steatosis and mild hepatomegaly. 2 cm cystic lesion in the pancreatic tail. this could be further evaluated with nonemergent MRCP without and with intravenous contrast. Radiation optimization: All CT scans at this facility use at least one of these dose optimization techniques: automated exposure control mA and/or kV adjustment per patient size (includes targeted exams where dose is matched to clinical indication) or iterative reconstruction. ATED BY: GAEL ALSTON MD DICTATED DATE/TIME: 12/01/24951 SIGNED BY: GAEL ALSTON MD SIGNED DATE/TIME: 12/01/24951 CC: [place] [address] Ph: [phone] DIAGNOSTIC IMAGING Diagnostic Imaging Report : [id number] Signed PATIENT: GENESIS HOUSE ACCT: [id number] UNIT: [id number] : 1985 LOC: OVERFLOW ROOM / BED: 1017-ER / A AGE / SEX: 39 / M ADM STATUS: ADM IN SERVICE 0755 ORDERING PHYSICIAN: BRENNAN FRIED RESIDENT PROCEDURE(s): ABDL - ABDOMEN LIMITED REASON: RULE OUT CIRRHOSIS OF LIVER/CBD Obstruction ORDER NUMBER(s): [id number], ACCESSION NUMBER(s): [id number] INDICATION: RULE OUT CIRRHOSIS OF LIVER/CBD Obstruction TECHNIQUE: Multiple real-time sonographic images of the abdomen were obtained. COMPARISON: ABDL on DOS: 02/06/22, ABDOMEN LIMITED on DOS: 02/06/22 FINDINGS: The liver is heterogeneous in echogenicity. The liver measures 16cm. No intrahepatic biliary ductal dilatation is noted. Possible 1 cm hypoechoic mass left hepatic lobe. MRI liver mass protocol recommended The gallbladder wall measures 0.1 cm and is unremarkable. 6 mm gallbladder polyp. 1 cm and is unremarkable. No pericholecystic fluid is noted. The right kidney measures 10cm. No hydronephrosis. T The pancreas is not well visualized due to obscuration from bowel gas. The visualized portions of the IVC and aorta are grossly unremarkable. IMPRESSION: Dilated common bile duct. MRCP recommended. 6 mm gallbladder polyp. 1 cm hypoechoic left hepatic lobe mass. CT recommended. ATED BY: FRANCES JOHNSON MD DICTATED DATE/TIME: 12/01/24847 SIGNED BY: FRANCES JOHNSON MD SIGNED DATE/TIME: 12/01/24847 CC: Condition at Discharge: Stable Final Diagnosis/Problems List # toxic encephalopathy likely due to acute alcohol withdrawal # alcohol intoxication ruled out # acute alcohol withdrawal-CIWA Score 0 # transaminitis # hepatic steatosis with mild hepatomegaly # gallbladder polyp # dilated CBD # iron-deficiency anemia #Prediabetes # Pancreatic cyst in the tail Discharge Disposition: Home Discharge Instruct/Medications Follow Up/Referral: Patient was advised to follow up in the discharge clinic in 1 week Please follow up with the primary care physician in 1 week Patient was advised to follow up with the stitcher special machine for further evaluation of hepatic steatosis with hepatomegaly, gallbladder polyp, dilated CBD. Patient was provided with the alcohol rehab information booklets Patient was counseled about the effect of alcoholism on health Medications: Continue folic acid 1 mg p.o. daily Thiamine 100 mg p.o. daily Ferrous sulfate 325 mg p.o. daily Pantoprazole 40 mg p.o. daily for 2 weeks Patient was advised to follow up in the discharge clinic in 1 week Please follow up with the primary care physician in 1 week Patient was provided with the alcohol rehab information booklets Patient was counseled about the effect of alcoholism on health Discharge Statement: "Patient was advised to return to the ER or call 911 if any headaches, dizziness, shortness of breath, chest pain, abdominal pain, bleeding, fevers, or worsening of medical condition. Patient was counseled about treatment plan, medications, possible side effects, patientverbalized understanding. All questions were answered to the best of my ability. This discharge took greater then 30 minutes in planning, reviewing documentation, counseling the patient, and discussing with other team members." ASSESSMENT ASSESSMENT Assessment Date of Service: Dec 02, 2024 Billing Provider: BRIAN KNOWLES MD Common Visit Codes: 91416-CLW/OBS DISCH DAY >30min BRENNAN FRIED RESIDENT Dec 02, 2024 15:22 BRIAN KNOWLES MD Dec 08, 2024 01:52
[2024-12-02] MEDS ORDERED: FER325T PO (15:25)
[2024-12-02] MEDS ORDERED: PANT40T PO (15:25)
[2024-12-02] MEDS ORDERED: THIA100T10 PO (15:25)
[2024-12-02] MEDS ORDERED: ZOFR4T PO (15:25)
[2024-12-02] MEDS ORDERED: FOLI-119 PO (15:25)
[2024-12-02] MEDS ORDERED: chlordiazePOXIDE HCL 25 MG CAP PO SCH (22:00)
[2024-12-03] MEDS ORDERED: FERROUS SULFATE 325mg EC TAB PO SCH (10:00)
[2024-12-03] MEDS ORDERED: THIAMINE HCL 100 MG TAB PO SCH (10:00)
[2024-12-04] MEDS ORDERED: chlordiazePOXIDE HCL 25 MG CAP PO SCH (07:00)
== END 2024-12-02 17:00 | disposition home or self-care (01) | DRG 775 ==
LOC: ER 19:02 → OVERFLOW 21:13 → WEST WING 12-01 18:42
PROVIDERS: ADMIT Student in an Organized Health Care Education/Training Program; ATTEND Student in an Organized Health Care Education/Training Program
DX: F10.239 Alcohol dependence with withdrawal, unspecified (principal); G92.8 Other toxic encephalopathy; K86.2 Cyst of pancreas; D50.9 Iron deficiency anemia, unspecified; E11.9 Type 2 diabetes mellitus without complications; R74.01 Elevation of levels of liver transaminase levels; Z79.84 Long term (current) use of oral hypoglycemic drugs; Z79.899 Other long term (current) drug therapy; Y90.8 Blood alcohol level of 240 mg/100 ml or more
CPT/HCPCS: 36415; 74176; 76705; 80053; 80074; 80307; 80320; 81001; 82270; 82728; 83036; 83540; 83550; 83690; 83735; 84443; 85025; 86706; 87081; 93005; G0378; J2405

== ENCOUNTER 2025-01-15 18:36 | Inpatient (IN) | payer MEDICAID ==
[~2025-01-15] VITALS: Ht 177.8 cm; Wt 64.9 kg
[~2025-01-15 18:36] MED LIST changes: -B CO PO; -CHL10C PO; +FER325T PO; +FOLI-119 PO; -GLUCTES VI; -METF-370 PO; -METF500S3 PO; -MULT-351 GT; -PANC1CAP PO; +PANT40T PO; -PANT40TA2 PO; +ZOFR4T PO
--- NOTE | 2025-01-15 19:02 | ECG ---
[facility] Test Date: 2025-01-15 Test Time: 18:38:51 Pat Name: GENESIS HOUSE Department: ED Room: 0285T Gender: M Lens Cutter: SISI : 1985 Requested By: SHELBIE VALDEZ Order Number: [id number] Reading MD: Kojo Herr Measurements Intervals Grubbs Rate: 115 P: 60 MT: 106 QRS: 69 QRSD: 89 T: 23 QT: 332 QTc: 460 Interpretive Statements Sinus tachycardia Electronically Signed On 01-16-2025 22:35:35 PDT by Kojo Herr Please click the below link to view image of tracing.
[2025-01-15 19:21] LABS: Basophils # (auto) 0.1 10 ^3/uL (0-0.2); Eosinophils # (auto) 0 10 ^3/uL (0-0.8); Nucleated Red Blood Cells % 0.1 %
[2025-01-15 19:23] LABS: Eosinophils % (auto) 0.8 % (0.0-7.0); Hematocrit 36.2 % (41.0-53.0); Lymphocytes % (auto) 25.4 % (10.0-50.0); Mean Corpuscular Hemoglobin 22.3 pg (28.0-32.0); Mean Corpuscular Hgb Conc. 30.5 g/dL (32.0-36.0); Mean Corpuscular Volume 73.1 fL (80.0-100.0); Monocytes # (auto) 0.2 10 ^3/uL (0-1.3); Monocytes % (auto) 6.3 % (0.0-12.0); Neutrophils # (auto) 2.5 10 ^3/uL (1.6-8.6); Neutrophils % (auto) 64.5 % (37.0-80.0); Platelet Count (auto) 142 10^3/uL (140-450); Red Blood Cells 4.95 10^6/uL (4.5-5.90); Red Cell Distribution Width 21.2 % (11.8-14.3); White Blood Cell 3.9 10^3/uL (4.4-10.8)
--- NOTE | 2025-01-15 19:24 | ED.PDOC ---
HPI Comments 39 year old male came to ER due to palpitations. Patient claims he has been sober for 6 months (he was here last month for ETOH). Claims he started drinking excessively again last night and he started having palpitations, chest discomfort and nausea. 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 Allergies: Coded Allergies: NO KNOWN ALLERGIES (Unverified , 02/05/22) Home Meds Active Scripts Ondansetron Odt 4MG Tab (ZOFRAN PO) 4 Mg Tb, 4 MG PO Q4HP PRN for 5 Days, #25 TAB ODT TAB-DISSOLVE IN MOUTH, THEN SWALLOW Prov:BRONSON FRIED RESIDENT 12/02/24 Pantoprazole Sodium Sesquihydr (Pantoprazole Sodium) 40 Mg Tab, 40 MG PO DAILY for 90 Days, #90 TAB Prov:[facility] 12/02/24 Ferrous Sulfate (Ferrous Sulfate) 325 Mg Tab, 325 MG PO DAILY for 90 Days, #90 TAB [facility] 12/02/24 Thiamine Hcl (VITAMIN B-1) 100 Mg Tb, 100 MG PO DAILY for 90 Days, #90 TAB [facility] 12/02/24 Folic Acid (Folic Acid) 1 Mg Tab, 1 MG PO DAILY for 90 Days, #90 TAB [facility] 12/02/24 Reported Medications Atorvastatin Calcium (ATORVASTATIN CALCIUM) 40 Mg Tab, 1 TAB PO for 90 Days, #90 12/01/24 Sertraline Hcl (Sertraline Hcl) 50 Mg Tab, 1 TAB PO QAM for 30 Days, #30 12/01/24 Hydroxyzine Hcl (Hydroxyzine Hcl) 25 Mg Tab, 1 TAB PO DAILY for 30 Days, #30 12/01/24 Metformin Hydrochloride (METFORMIN HCL ER) 1,000 Mg Tab, 1 TAB PO DAILY for 90 Days, #90 12/01/24 Information Source: Patient Mode of Arrival: EMS Severity: Moderate Timing: Hours Duration: Since onset Location: Substernal Radiation: No Radiation Quality: Aching, Other (palpitations) Onset: With Light Exertion Cardiac Risk Factors: HTN Associated Signs and Symptoms: Palpitations, N/V Past Medical History PAST MEDICAL HISTORY: DM Surgical History: Denies all surgeries Family History Family History: Reviewed,noncontributory to illness Social History Smoker: Non-Smoker Alcohol: Heavy Drugs: Marijuana Lives In: Home Constitutional: denies: chills, diaphoresis, fatigue, fever, malaise, sweats, weakness, others EENTM: denies: blurred vision, double vision, ear bleeding, ear discharge, ear drainage, ear pain, ear ringing, eye pain, eye redness, hearing loss, mouth pain, mouth swelling, nasal discharge, nose bleeding, nose congestion, nose pain, photophobia, tearing, throat pain, throat swelling, voice changes, others Respiratory: denies: cough, hemoptysis, orthopnea, SOB at rest, shortness of breath, SOB with excertion, stridor, wheezing, others Cardiovascular: reports: chest pain, palpitations; denies: dizzy spells, diaphoresis, Dyspnea on exertion, edema, irregular heart beat, left arm pain, lightheadedness, PND, syncope, others Gastrointestinal: reports: nausea; denies: abdomen distended, abdominal pain, blood streaked bowels, constipated, diarrhea, dysphagia, difficulty swallowing, hematemesis, melena, poor appetite, poor fluid intake, rectal bleeding, rectal pain, vomiting, others Genitourinary: denies: burning, dysuria, flank pain, frequency, hematuria, incontinence, penile discharge, penile sore, pain, testicle pain, testicle swelling, urgency, others Neurological: denies: dizziness, fainting, headache, left sided numbness, left sided weakness, numbness, paresthesia, pre-existing deficit, right sided numbness, right sided weakness, seizure, speech problems, tingling, tremors, weakness, others Musculoskeletal: denies: back pain, gout, joint pain, joint swelling, muscle pain, muscle stiffness, neck pain, others Integumetry: denies: bruises, change in color, change in hair/nails, dryness, laceration, lesions, lumps, rash, wounds, others Allergic/Immunocompromised: denies: Difficulty Healing, Frequent Infections, Hives, Itching, others Hematologic/Lymphatic: denies: anemia, blood clots, easy bleeding, easy bruising, swollen glands, others Endocrine: denies: excessive hunger, excessive sweating, excessive thirst, excessive urination, flushing, intolerance to cold, intolerance to heat, unexplained weight gain, unexplained weight loss, others Psychiatric: denies: anxiety, bipolar disorder, depression, hopeless, panic disorder, schizophrenia, sleepless, suicidal, others Physical Exam General Appearance: No Apparent Distress, Normal HEENT: Normal ENT Inspection, Pharynx Normal, TMs Normal Neck: Full Range of Motion, Non-Tender, Normal, Normal Inspection Respiratory: Chest Non-Tender, Lungs Clear, No Accessory Muscle Use, No Respiratory Distress, Normal Breath Sounds Cardiovascular: No Edema, No JVD, No Murmur, No Gallop, Normal Peripheral Pulses, Tachycardia Breast Exam: Deferred Gastrointestinal: No Organomegaly, Non Tender, No Pulsatile Mass, Normal Bowel Sounds, Soft Genitalia: Deferred Pelvic: Deferred Rectal: Deferred Extremities: No calf tenderness, Normal capillary refill, Normal inspection, Normal range of motion, Non-tender, No pedal edema Musculoskeletal : Apperance: Normal Neurologic: Alert, fire alarm installer II-XII nml as Tested, No Motor Deficits, Normal Affect, Normal Mood, No Sensory Deficits Cerebellar Function: Normal Reflexes: Normal Skin: Dry, Normal Color, Warm Lymphatic: No Adenopathy EKG EKG : Pulse Rate (adult): 115 Cardiac Rhythm: ST Was a procedure done? Was a procedure done?: No CP Differential Dx Differential Diagnosis: Angina, Anxiety / Panic Attack, Electrolyte Disorder, Hyperventilation, Sinus Tachycardia Differential Diagnosis: Angina, Chest Wall Pain, Costochondritis, Esophageal reflux/spasm, Gastritis, Myocardial Infarction X-Ray, Labs, Meds, VS Vital Signs Date Time Temp Pulse Resp B/P (MAP) Pulse Ox O2 Delivery O2 Flow Rate FiO2 01/15/25 20:05 103 16 99 Room Air* 0 21 01/15/25 20:02 98.9 104 22 127/89 (102) 95 98.9 01/15/25 19:24 115 01/15/25 18:55 98.2 112 18 133/87 (102) 95 98.2 01/15/25 18:41 115 Lab Test 01/15/25 19:59 01/15/25 19:06 Range/Units Troponin I High Sensitivity 9 7 </=54 ng/L White Blood Count 3.9 L 4.4-10.8 10^3/uL Red Blood Count 4.95 4.5-5.90 10^6/uL Hemoglobin 11.0 L 13.5-17.5 g/dL Hematocrit 36.2 L 41.0-53.0 % Mean Corpuscular Volume 73.1 L 80.0-100.0 fL Mean Corpuscular Hemoglobin 22.3 L 28.0-32.0 pg Mean Corpuscular Hemoglobin Concent 30.5 L 32.0-36.0 g/dL Red Cell Distribution Width 21.2 H 11.8-14.3 % Platelet Count 142 140-450 10^3/uL Mean Platelet Volume 8.6 6.9-10.8 fL Neutrophils (%) (Auto) 64.5 37.0-80.0 % Lymphocytes (%) (Auto) 25.4 10.0-50.0 % Monocytes (%) (Auto) 6.3 0.0-12.0 % Eosinophils (%) (Auto) 0.8 0.0-7.0 % Basophils (%) (Auto) 3.0 H 0.0-2.0 % Neutrophils # (Auto) 2.5 1.6-8.6 10 ^3/uL Lymphocytes # (Auto) 1.0 0.4-5.4 10 ^3/uL Monocytes # (Auto) 0.2 0-1.3 10 ^3/uL Eosinophils # (Auto) 0 0-0.8 10 ^3/uL Basophils # (Auto) 0.1 0-0.2 10 ^3/uL Nucleated Red Blood Cells 0.1 % Sodium Level 145 136-145 mmol/L Potassium Level 4.4 3.5-5.1 mmol/L Chloride Level 109 H 98-107 mmol/L Carbon Dioxide Level 19 L 20-31 mmol/L Anion Gap 17 H 5-15 Blood Urea Nitrogen 19 9-23 mg/dL Creatinine 1.23 0.700-1.30 mg/dL Glomerular Filtration Rate Calc 76 >90 mL/min BUN/Creatinine Ratio 15.4 10.0-20.0 Serum Glucose 132 H 74-106 mg/dL Calcium Level 9.2 8.7-10.4 mg/dL Plasma/Serum Blood Alcohol 469.6 *H <10 mg/dL Time of 1ST Reevaluation: 19:20 Reevaluation 1ST: Unchanged Patient Education/Counseling: Diagnosis, Treatment Family Education/Counseling: No Family Present Departure 1 Departure Time of Disposition: 21:00 (Patient presented with chest pain that was concerning for possible STEMI, ACS, PE, Pneumonia, Muscle Strain, COPD, Dissection. Data: 1. I ordered and reviewed the result of at least 3 labs including a CBC, BMP, and Troponin. 2. I independently interpreted the following tests: EKG which shows sinus tachycardia and Chest X-ray which shows benign chest.Risk:This patient has a high risk of morbidity due to further diagnostic testing or treatment and may suffer from an acute cardiac or respiratory disorder. Workup reveals _ concern for ACS and alcohol intoxication _ and patient should be admitted for further workup and possible expert consultation. ) Impression: Primary Impression: Acute chest pain Additional Impression: Alcohol intoxication Qualified Codes: F10.920 - Alcohol use, unspecified with intoxication, uncomplicated Disposition: 09 ADMITTED INPATIENT Admit to: Med Surg Condition: Guarded Critical Care Note Critical Care Time?: Yes Critical care comment: Acute chest pain Authorized and Performed by: Shelbie Tovar MD Total critical care time: Approximately 38 minutes Due to a high probability of clinically significant, life threatening deterioration, the patient required my highest level of preparedness to intervene emergently and I personally spent this critical care time directly and personally managing the patient. This critical care time included obtaining a history; examining the patient; pulse oximetry; ordering and review of studies; arranging urgent treatment with development of a management plan; evaluation of patient's response to treatment; frequent reassessment; and, discussions with other providers. This critical care time was performed to assess and manage the high probability of imminent, life-threatening deterioration that could result in multi-organ failure. It was exclusive of separately billable procedures and treating other patients and teaching time. Please see my other sections and the rest of the note for further information on patient assessment and treatment. Stability Stability form required: No Heart Score Heart Score: Heart Score Response (Comments) Value History Moderate Suspicious [address]-Deviation 2 Age <45 0 Risk Factors 1 or 2 risk factors 1 Troponin Normal limit 0 Total 4 I personally scribed for SHELBIE TOVAR MD ([email or web address]) on 01/15/25 at 19:24. Electronically submitted by Raymon Calhoun ([email or web address]). SHELBIE TOVAR MD January 15, 2025 19:24
[2025-01-15 19:29] LABS: Anion Gap 17 (5-15); Potassium 4.4 mmol/L (3.5-5.1); Sodium 145 mmol/L (136-145)
[2025-01-15 19:30] LABS: Calcium 9.2 mg/dL (8.7-10.4); Carbon Dioxide 19 mmol/L (20-31); Chloride 109 mmol/L (98-107)
[2025-01-15 19:35] LABS: BUN/Creatinine Ratio 15.4 (10.0-20.0); Blood Urea Nitrogen 19 mg/dL (9-23)
[2025-01-15 19:36] LABS: Glucose 132 mg/dL (74-106)
--- NOTE | 2025-01-15 19:42 | DVH ---
CHEST RADIOGRAPH Indication: chest pain Technique: Single frontal view of the chest was obtained COMPARISON: XY CHEST PORTABLE on DOS: 10/19/24 FINDINGS: Lines and Tubes: None Lungs: Clear Pleura: No effusion. No pneumothorax. Cardiomediastinal contours: Unremarkable Bones: Evidence of fractures of the left anterior 2nd to 4th ribs which were not present on the prior chest x-ray from 10/19/24 IMPRESSION: No pulmonary abnormality. Left-sided rib fractures.
[2025-01-15 19:48] LABS: Blood Alcohol 469.6 mg/dL (<10)
[2025-01-15 20:05] VITALS: PULSE 103; RESP 16; O2SAT 99
[2025-01-15] MEDS ORDERED: LORazepam 2MG/ML-1ML VIAL IM ONE (20:45)
[2025-01-15] MEDS: LORazepam 2MG/ML-1ML VIAL IV ONE (21:10)
[2025-01-15] MEDS: chlordiazePOXIDE HCL 25 MG CAP PO ONE (21:10)
[2025-01-15 21:19] VITALS: PULSE 113; RESP 18; O2SAT 97
--- NOTE | 2025-01-15 22:40 | DVHHP2 ---
History of Present Illness Reason for Visit: Acute chest pain History of Present Illness The patient is a 39-year-old male with past medical history of diabetes mellitus who presented to [facility] ED with complaint of palpitations. Patient claims he has been sober for 6 months from alcohol abuse. Admit to. drinking excessively again last night and he started having palpitations, chest discomfort and nausea. Patient was seen and evaluated in the ED, laboratory data shows WBC 3.9, hemoglobin 11.0, hematocrit 36.2, platelets 142, sodium 145, potassium 4.4, BUN 19, creatinine 1.23, glucose 132, anion gap 17, troponin 9. Chest x-ray show no pulmonary abnormality, left-sided rib fractures age indeterminate. Please see medication orders section in the computer. On my assessment, patient denied chest pain, no headache, no dizziness, no shortness of breaths, no diarrhea, no nausea, no vomiting, no fever, no chills. Patient was admitted for further evaluation and medical management. Past Medical History DM, EtOH Past Surgical History Denies all surgeries Family History Reviewed, noncontributory to the management of this case. Past Social History The patient lives at home, denies smoking, drinks alcohol heavily, uses marijuan a. Review of Systems Constitutional: No: Fever, Chills, Sweats, Weakness, Malaise, Other Eyes: No: Pain, Vision change, Conjunctivae inflammation, Eyelid inflammation, Other, Redness ENT: No: Ear pain, Ear discharge, Nose pain, Nose discharge, Nose congestion, Mouth pain, Mouth swelling, Throat pain, Throat swelling, Other Respiratory: No: Cough, Dry, Shortness of breath, SOB with excertion, Wheezing, Hemoptysis, Pleuritic Pain, Sputum, Wheezing, Other Cardiovascular: Chest Pain, Palpitations; No: Orthopnea, Paroxysmal Noc. Dyspnea, Edema, Lt Headedness, Other Gastrointestinal: Nausea; No: Vomiting, Abdominal Pain, Diarrhea, Constipation, Melena, Hematochezia, Other Genitourinary: No Dysuria, No Frequency, No Incontinence, No Hematuria, No Retention, No Other Musculoskeletal: No: other, neck pain, shoulder pain, arm pain, back pain, hand pain, leg pain, foot pain Skin: No: Rash, Lesions, Jaundice, Bruising, Other Neurological: No: Weakness, Numbness, Incoordination, Change in speech, Confusion, Seizures, Other Allergies: Coded Allergies: NO KNOWN ALLERGIES (Unverified , 02/05/22) Exam Vital Signs Vital Signs Date Time Temp Pulse Resp B/P (MAP) Pulse Ox O2 Delivery O2 Flow Rate FiO2 01/15/25 22:00 111 18 130/90 (103) 97 01/15/25 21:22 98.8 98.8 01/15/25 21:19 Room Air* 0 21 General Appearance: Alert, Oriented X3, Cooperative, No acute distress HEENT: Atraumatic, PERRLA, EOMI, Mucous membr. moist/pink Respiratory: Normal air movement Cardiovascular: Regular rate, Normal S1, Normal S2, No murmurs Abdominal: Normal bowel sounds, Soft, No tenderness, No hepatospenomegaly, No masses Extremities: No clubbing, No cyanosis, No edema, Normal pulses, No tenderness/swelling Skin: No rashes, No breakdown, No significant lesion Neuro: Normal gait, Normal speech, Strength at 5/5 X4 ext, Normal tone, Sensation intact, Cranial nerves 3-12 NL, Reflexes 2+ Psych/Mental Status: Mental status NL, Mood NL Labs/Xrays Labs Test 01/15/25 22:14 01/15/25 21:30 01/15/25 19:06 Range/Units POC Glucose 178 H 70-106 mg/dl White Blood Count 3.9 L 4.4-10.8 10^3/uL Red Blood Count 4.95 4.5-5.90 10^6/uL Hemoglobin 11.0 L 13.5-17.5 g/dL Hematocrit 36.2 L 41.0-53.0 % Mean Corpuscular Volume 73.1 L 80.0-100.0 fL Mean Corpuscular Hemoglobin 22.3 L 28.0-32.0 pg Mean Corpuscular Hemoglobin Concent 30.5 L 32.0-36.0 g/dL Red Cell Distribution Width 21.2 H 11.8-14.3 % Platelet Count 142 140-450 10^3/uL Mean Platelet Volume 8.6 6.9-10.8 fL Neutrophils (%) (Auto) 64.5 37.0-80.0 % Lymphocytes (%) (Auto) 25.4 10.0-50.0 % Monocytes (%) (Auto) 6.3 0.0-12.0 % Eosinophils (%) (Auto) 0.8 0.0-7.0 % Basophils (%) (Auto) 3.0 H 0.0-2.0 % Neutrophils # (Auto) 2.5 1.6-8.6 10 ^3/uL Lymphocytes # (Auto) 1.0 0.4-5.4 10 ^3/uL Monocytes # (Auto) 0.2 0-1.3 10 ^3/uL Eosinophils # (Auto) 0 0-0.8 10 ^3/uL Basophils # (Auto) 0.1 0-0.2 10 ^3/uL Nucleated Red Blood Cells 0.1 % Sodium Level 145 136-145 mmol/L Potassium Level 4.4 3.5-5.1 mmol/L Chloride Level 109 H 98-107 mmol/L Carbon Dioxide Level 19 L 20-31 mmol/L Anion Gap 17 H 5-15 Blood Urea Nitrogen 19 9-23 mg/dL Creatinine 1.23 0.700-1.30 mg/dL Glomerular Filtration Rate Calc 76 >90 mL/min BUN/Creatinine Ratio 15.4 10.0-20.0 Serum Glucose 132 H 74-106 mg/dL Calcium Level 9.2 8.7-10.4 mg/dL Plasma/Serum Blood Alcohol 469.6 *H <10 mg/dL 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 No pneumothorax. Cardiomediastinal contours: Unremarkable Bones: Evidence of fractures of the left anterior 2nd to 4th ribs which were not present on the prior chest x-ray from 10/19/24 IMPRESSION: No pulmonary abnormality. Left-sided rib fractures. Assessment/Plan Assessment/Plan Acute chest pain Alcohol intoxication Alcohol use, unspecified with intoxication, uncomplicated Plan 1. Admit to telemetry unit 2. Breathing treatment 3. Pain control management 4. Management of fluids and electrolytes 5. Consultation for hospitalist 6. Diagnostic tests chest x-ray 7. DVT prophylaxis-on SCDs 8. Repeat labs CBC, CMP in a.m. 9. Continue with current medical management 10. Treatment plan discussed with patient and RN. Patient verbalized understanding. Plan discussed with: Patient, Other (RN) My Orders Orders - JUDY PAN DNP Procedure Category Date Status Time Lorazepam 2mg/Ml Inj PHA 01/15/25 Verified (Ativan Inj) 22:45 Thiamine Inj PHA 01/15/25 Verified 22:45 Thiamine Inj PHA 01/16/25 Verified 10:00 Folic Acid Ivpb PHA 01/16/25 Verified 10:00 Folic Acid Ivpb PHA 01/15/25 Verified 22:45 Consistent DIET 01/16/25 Verified Carb(Ccho)Diabetes Breakfast Atorvastatin (Lipitor) PHA 01/16/25 Verified 22:00 Sertraline Hcl PHA 01/16/25 Verified (Zoloft) 10:00 Famotidine Injection PHA 01/16/25 Verified (Pepcid Injection) 10:00 Glucose Blood PHA 01/16/25 Verified (Accu-Chek Comfort 07:00 Mild Sliding Scale PHA 01/16/25 Verified 07:00 Dextrose 50% Syringe PHA 01/15/25 Verified 22:45 Admit ADMIT 01/15/25 Verified 22:31 Allergies MIROSLAVA 01/15/25 Verified 22:31 Code Status CODE 01/15/25 Verified 22:31 Sodium Chloride Lock PHA 01/16/25 Verified (Saline Lock Ns) 06:00 Oxygen Per Hour RT 01/15/25 Verified 22:31 Hydrocodone-Acet PHA 01/15/25 Verified 5/325mg Tab ([place] 22:45 Ondansetron Hcl PHA 01/15/25 Verified (Zofran) 22:45 Docusate Sodium PHA 01/15/25 Verified Capsule (Colace 22:45 Complete Blood Count LAB 01/16/25 Verified 04:00 Comprehensive LAB 01/16/25 Verified Metabolic Panel 04:00 Condition: Serious MIROSLAVA 01/15/25 Verified 22:31 Acetaminophen Tablet PHA 01/15/25 Verified (Tylenol Tablet) 22:45 Bedrest With Bathroom MIROSLAVA 01/15/25 Verified Privileg 22:31 Sequential [facility] 01/15/25 Verified Compression Device Nitroglycerin [facility] 01/15/25 Verified Sublingual (Ntrostat 22:45 Morphine Sulfate [facility] 01/15/25 Verified Injection 22:45 Stat Ekg For Chest [facility] 01/15/25 Verified Pain 22:31 Notify Of Changes [facility] 01/15/25 Verified From Base 22:31 Massage Coordinator For [facility] 01/15/25 Verified 24 Hours 22:31 Emergency Dysrhythmia [facility] 01/15/25 Verified Protocol 22:31 Rhythm Strips Once [facility] 01/15/25 Verified Every Shift 22:31 Oxygen By Nasal 01/15/25 Verified Cannula 22:31 Problem List: (1) Acute chest pain (2) Alcohol intoxication (3) Alcohol use, unspecified with intoxication, uncomplicated Date of Service: January 15, 2025 Billing Provider: JUDY PAN DNP Common Visit Codes: [id number] INP/OBS CARE (HIGH) JUDY PAN DNP January 15, 2025 22:40
[2025-01-15] MEDS ORDERED: ONDANSETRON HCL 4 MG/2 ML VIAL IV PRN (22:45)
[2025-01-15] MEDS ORDERED: DOCUSATE SOD 100 MG CAP PO PRN (22:45)
[2025-01-15] MEDS ORDERED: MORPHINE SULFATE INJ 2 MG/ml SYRG IV PRN (22:45)
[2025-01-15] MEDS ORDERED: NITROGLYCERIN 0.4 MG SL TAB SL PRN (22:45)
[2025-01-15] MEDS ORDERED: DEXTROSE (50%) 50ML SYRG IV PRN (22:45)
[2025-01-15] MEDS ORDERED: HYDROcodone-ACET 5/325MG TAB PO PRN (22:45)
[2025-01-15] MEDS ORDERED: ACETAMINOPHEN 325 MG TAB PO PRN (22:45)
[2025-01-15] MEDS: FOLIC ACID 1 MG in D5W 5% 50 ML INJ ONE (23:00)
[2025-01-15] MEDS: THIAMINE 100mg/ml INJ (200mg/2ml VIAL) IV ONE (23:01)
[2025-01-15] MEDS: FOLIC ACID 1 MG TAB PO ONE (23:16)
[2025-01-15 23:56] VITALS: BP 128/97; PULSE 100; PULSE 16; RESP 16; TEMP 98.6; O2SAT 97
[2025-01-16] VITALS (9 sets, daily range): BP systolic 111–141; BP diastolic 78–97; PULSE 94–113; RESP 16–18; TEMP 98–99.3; O2SAT 95–98
[2025-01-16] MEDS: LORazepam 2MG/ML-1ML VIAL IV PRN (04:39)
[2025-01-16 06:10] LABS: Eosinophils # (auto) 0 10 ^3/uL (0-0.8); Mean Corpuscular Hgb Conc. 31.4 g/dL (32.0-36.0); Monocytes # (auto) 0.5 10 ^3/uL (0-1.3); Neutrophils # (auto) 1.2 10 ^3/uL (1.6-8.6)
[2025-01-16 06:16] LABS: Basophils # (auto) 0.1 10 ^3/uL (0-0.2); Basophils % (auto) 2.4 % (0.0-2.0); Eosinophils % (auto) 1.1 % (0.0-7.0); Hematocrit 32.7 % (41.0-53.0); Hemoglobin 10.3 g/dL (13.5-17.5); Lymphocytes # (auto) 1.6 10 ^3/uL (0.4-5.4); Lymphocytes % (auto) 46.8 % (10.0-50.0); Mean Corpuscular Hemoglobin 22.9 pg (28.0-32.0); Mean Corpuscular Volume 72.9 fL (80.0-100.0); Monocytes % (auto) 13.6 % (0.0-12.0); Neutrophils % (auto) 36.1 % (37.0-80.0); Nucleated Red Blood Cells % 0.1 %; Platelet Count (auto) 121 10^3/uL (140-450); Red Blood Cells 4.49 10^6/uL (4.5-5.90); Red Cell Distribution Width 21.6 % (11.8-14.3); White Blood Cell 3.4 10^3/uL (4.4-10.8)
[2025-01-16] MEDS: InsuLIN REG 1unit/0.01ml Soln (100units/ml) SC SCH (06:26)
[2025-01-16] MEDS: ACCU-CHEK COMFORT CURVE STRIP VI SCH (06:27)
[2025-01-16] MEDS: SODIUM CHLOR 0.9% PF (SALINE LOCK) 10ML VIAL/SYR IV SCH (06:27)
[2025-01-16 06:35] LABS: Anion Gap 13 (5-15); Bilirubin, Total 0.7 mg/dL (0.2-1.0); Blood Urea Nitrogen 16 mg/dL (9-23); Calcium 9.5 mg/dL (8.7-10.4); Carbon Dioxide 24 mmol/L (20-31); Chloride 103 mmol/L (98-107); Potassium 3.9 mmol/L (3.5-5.1); Sodium 140 mmol/L (136-145); Total Protein 7.7 g/dL (5.7-8.2)
[2025-01-16 06:40] LABS: Alanine Aminotransferase 65 U/L (7-40); Albumin 4.9 g/dL (3.2-4.8); Alkaline Phosphatase 132 U/L (46-116); Aspartate Aminotransferase 147 U/L (13-40); Glucose 139 mg/dL (74-106)
[2025-01-16] MEDS: SERTRALINE HCL 50 MG TAB PO SCH (10:25)
[2025-01-16] MEDS: THIAMINE 100mg/ml INJ (200mg/2ml VIAL) IV SCH (10:25)
[2025-01-16] MEDS: FAMOTIDINE (10MG/ML) 2ML VL IV SCH (10:48)
[2025-01-16] MEDS: FOLIC ACID 1 MG in D5W 5% 50 ML INJ SCH (10:59)
--- NOTE | 2025-01-16 18:29 | DVHPN2 ---
Subjective chest pain resolved Reviewed: H&P, Labs Changes from previous H/P or p: No Changes Eyes: No Pain, No Vision change, No Conjunctivae inflammation, No Eyelid inflammation, No Other, No Redness ENT: No Ear pain, No Ear discharge, No Nose pain, No Nose discharge, No Nose congestion, No Mouth pain, No Mouth swelling, No Throat pain, No Throat swelling, No Other Cardiovascular: Chest Pain, Palpitations; No Orthopnea, No Paroxysmal Noc. Dyspnea, No Edema, No Lt Headedness, No Other Respiratory: No Cough, No Dry, No Shortness of breath, No SOB with excertion, No Wheezing, No Hemoptysis, No Pleuritic Pain, No Sputum, No Other Gastrointestinal: Nausea; No Vomiting, No Abdominal Pain, No Diarrhea, No Constipation, No Melena, No Hematochezia, No Other Genitourinary: No Dysuria, No Frequency, No Incontinence, No Hematuria, No Retention, No Other Musculoskeletal: No other, No neck pain, No shoulder pain, No arm pain, No back pain, No hand pain, No leg pain, No foot pain Skin: No Rash, No Lesions, No Jaundice, No Bruising, No Other Objective Vitals Vital Signs Date Time Temp Pulse Resp B/P (MAP) Pulse Ox O2 Delivery O2 Flow Rate FiO2 01/16/25 17:00 98.6 94 17 141/87 (105) 98 98.6 01/16/25 08:25 Room Air* 0 21 Intake/Output Intake and Output 01/16/25 07:00 Intake Total 200 ml Balance 200 ml Intake Oral 200 ml General Appearance: Alert, Oriented X3 Lungs: Clear to auscultation Cardiovascular: Regular rate, Normal S1, Normal S2 Abdomen: Normal bowel sounds, Soft Medications Current Medications Medications Dose Ordered Sig/[place] Route Start Time Stop Time Status Last Admin Dose Admin Lorazepam 1 mg Q8HP PRN IV 01/15/25 22:45 01/16/25 13:37 1 MG Thiamine HCl 100 mg DAILY IV 01/16/25 10:00 01/16/25 10:25 100 MG Folic Acid 1 mg/ Dextrose 50.2 ml @ 200.8 mls/ hr DAILY INJ 01/16/25 10:00 01/16/25 10:59 200.8 MLS/HR Atorvastatin Calcium 40 mg HS PO 01/16/25 22:00 Sertraline HCl 50 mg DAILY PO 01/16/25 10:00 01/16/25 10:25 50 MG Famotidine 20 mg DAILY IV 01/16/25 10:00 01/16/25 10:48 20 MG Diagnostic Test (Pha) 1 strip ACHS 01/16/25 07:00 01/16/25 17:32 1 STRIP Insulin Human Regular ACHS SC 01/16/25 07:00 01/16/25 17:35 3 UNITS Dextrose 50 ml UD PRN IV 01/15/25 22:45 Sodium Chloride 10 ml Q8HR IV 01/16/25 06:00 01/16/25 13:36 10 ML Acetaminophen/ Hydrocodone Bitart 1 tab Q4HP PRN PO 01/15/25 22:45 Ondansetron HCl 4 mg Q4HP PRN IV 01/15/25 22:45 Docusate Sodium 100 mg BIDPRN PRN PO 01/15/25 22:45 Acetaminophen 650 mg Q6HP PRN PO 01/15/25 22:45 Nitroglycerin 0.4 mg Q5MINP PRN SL 01/15/25 22:45 Morphine Sulfate 2 mg Q30M PRN IV 01/15/25 22:45 Laboratory Results Laboratory Tests 01/16/25 05:10 Chemistry Test 01/15/25 19:06 01/16/25 05:10 Calcium Level 9.2 mg/dL (8.7-10.4) 9.5 mg/dL (8.7-10.4) Albumin 4.9 g/dL (3.2-4.8) H Total Protein 7.7 g/dL (5.7-8.2) LFT Test 01/16/25 05:10 Alanine Aminotransferase (ALT) 65 U/L (7-40) H Alkaline Phosphatase 132 U/L (46-116) H Aspartate Amino Transferase (AST) 147 U/L (13-40) H Total Bilirubin 0.7 mg/dL (0.2-1.0) Assessment/Plan Assessment/Plan Acute chest pain Alcohol intoxication Alcohol withdrawal CIWA 28 Continue alcohol withdrawal protocol IV pantoprazole Plan discussed with: Patient Date of Service: Jan 16, 2025 Billing Provider: WANDA LERMA MD Common Visit Codes: [id number] INP/OBS CARE(HIGH) WANDA LERMA MD Jan 16, 2025 18:29
[2025-01-16] MEDS: chlordiazePOXIDE HCL 25 MG CAP PO SCH (19:27)
[2025-01-16] MEDS: ATORVASTATIN 20 MG TAB PO SCH (22:15)
[2025-01-17] VITALS (8 sets, daily range): BP systolic 118–144; BP diastolic 74–100; PULSE 78–115; RESP 16–19; TEMP 95.9–98.7; O2SAT 95–99
[2025-01-17] MEDS: chlordiazePOXIDE HCL 25 MG CAP PO SCH (09:12)
[2025-01-17 11:59] LABS: Hepatitis B Surface Antigen Negative (Negative); Hepatitis C Antibody Negative (Negative)
--- NOTE | 2025-01-17 19:11 | DVHPN2 ---
Subjective Says he feels better He is showing signs of withdrawal with tremors and anxiety Reviewed: H&P, Labs Changes from previous H/P or p: Changes Eyes: No Pain, No Vision change, No Conjunctivae inflammation, No Eyelid inflammation, No Other, No Redness ENT: No Ear pain, No Ear discharge, No Nose pain, No Nose discharge, No Nose congestion, No Mouth pain, No Mouth swelling, No Throat pain, No Throat swelling, No Other Cardiovascular: Chest Pain, Palpitations; No Orthopnea, No Paroxysmal Noc. Dyspnea, No Edema, No Lt Headedness, No Other Respiratory: No Cough, No Dry, No Shortness of breath, No SOB with excertion, No Wheezing, No Hemoptysis, No Pleuritic Pain, No Sputum, No Other Gastrointestinal: Nausea; No Vomiting, No Abdominal Pain, No Diarrhea, No Constipation, No Melena, No Hematochezia, No Other Genitourinary: No Dysuria, No Frequency, No Incontinence, No Hematuria, No Retention, No Other Musculoskeletal: No other, No neck pain, No shoulder pain, No arm pain, No back pain, No hand pain, No leg pain, No foot pain Skin: No Rash, No Lesions, No Jaundice, No Bruising, No Other Objective Vitals Vital Signs Date Time Temp Pulse Resp B/P (MAP) Pulse Ox O2 Delivery O2 Flow Rate FiO2 01/17/25 17:03 98.7 95 18 127/98 (108) 99 98.7 01/17/25 08:00 Room Air* 0 21 Intake/Output Intake and Output 01/17/25 07:00 Intake Total 2435.2 ml Output Total 2911 ml Balance -475.8 ml Intake Oral 2385 ml IV Total 50.2 ml Output Urine Total 2900 ml Stool Total 11 ml # Voids 2 # Bowel Movements 2 General Appearance: Alert, Oriented X3 Lungs: Clear to auscultation Cardiovascular: Regular rate, Normal S1, Normal S2 Abdomen: Normal bowel sounds, Soft Medications Current Medications Medications Dose Ordered Sig/[place] Route Start Time Stop Time Status Last Admin Dose Admin Lorazepam 1 mg Q8HP PRN IV 01/15/25 22:45 01/17/25 13:17 1 MG Thiamine HCl 100 mg DAILY IV 01/16/25 10:00 01/17/25 09:11 100 MG Folic Acid 1 mg/ Dextrose 50.2 ml @ 200.8 mls/ hr DAILY INJ 01/16/25 10:00 01/17/25 09:12 200.8 MLS/HR Atorvastatin Calcium 40 mg HS PO 01/16/25 22:00 01/16/25 22:15 40 MG Sertraline HCl 50 mg DAILY PO 01/16/25 10:00 01/17/25 09:11 50 MG Famotidine 20 mg DAILY IV 01/16/25 10:00 01/17/25 09:10 20 MG Diagnostic Test (Pha) 1 strip ACHS 01/16/25 07:00 01/17/25 17:03 1 STRIP Insulin Human Regular ACHS SC 01/16/25 07:00 01/17/25 17:04 3 UNITS Dextrose 50 ml UD PRN IV 01/15/25 22:45 Sodium Chloride 10 ml Q8HR IV 01/16/25 06:00 01/17/25 17:03 10 ML Acetaminophen/ Hydrocodone Bitart 1 tab Q4HP PRN PO 01/15/25 22:45 Ondansetron HCl 4 mg Q4HP PRN IV 01/15/25 22:45 Docusate Sodium 100 mg BIDPRN PRN PO 01/15/25 22:45 Acetaminophen 650 mg Q6HP PRN PO 01/15/25 22:45 Nitroglycerin 0.4 mg Q5MINP PRN SL 01/15/25 22:45 Morphine Sulfate 2 mg Q30M PRN IV 01/15/25 22:45 Chlordiazepoxide HCl 50 mg Q12HR PO 01/17/25 10:00 01/17/25 22:01 Chlordiazepoxide HCl 25 mg Q12HR PO 01/18/25 10:00 01/18/25 22:01 Chlordiazepoxide HCl 25 mg QAM PO 01/19/25 07:00 01/19/25 07:01 Laboratory Results Laboratory Tests 01/16/25 05:10 Assessment/Plan Assessment/Plan Acute chest pain, atypical most likely due to musculoskeletal pain Alcohol intoxication Alcohol withdrawal Thrombocytopenia Neutropenia PLAN: Librium Ativan prn Vitamins Folic acid Thiamine Full code Advanced directives discussed x 20 minutes The patient said he wants to go home, he feels better, upon further discussions, he became more nervous and was having more tremors I explained to him that he is not ready for discharge He said he wanted to go AMA Plan discussed with: Patient Date of Service: Jan 17, 2025 Billing Provider: BLAYNE ORELLANA MD Common Visit Codes: [id number] INP/OBS CARE(HIGH) Secondary Visit Codes: [id number] CARE PLAN 30 MINUTES BLAYNE ORELLANA MD Jan 17, 2025 19:11
[2025-01-18] VITALS (8 sets, daily range): BP systolic 110–122; BP diastolic 77–93; PULSE 93–106; RESP 17–20; TEMP 96–99.6; O2SAT 96–99
[2025-01-18 07:11] LABS: Basophils # (auto) 0 10 ^3/uL (0-0.2); Basophils % (auto) 0.8 % (0.0-2.0); Eosinophils # (auto) 0.1 10 ^3/uL (0-0.8); Eosinophils % (auto) 2.8 % (0.0-7.0); Hematocrit 35.4 % (41.0-53.0); Hemoglobin 11.1 g/dL (13.5-17.5); Lymphocytes # (auto) 1.4 10 ^3/uL (0.4-5.4); Lymphocytes % (auto) 27.5 % (10.0-50.0); Mean Corpuscular Hemoglobin 22.9 pg (28.0-32.0); Mean Corpuscular Hgb Conc. 31.4 g/dL (32.0-36.0); Mean Corpuscular Volume 72.8 fL (80.0-100.0); Monocytes # (auto) 0.7 10 ^3/uL (0-1.3); Monocytes % (auto) 13.6 % (0.0-12.0); Neutrophils # (auto) 2.8 10 ^3/uL (1.6-8.6); Neutrophils % (auto) 55.3 % (37.0-80.0); Nucleated Red Blood Cells % 0.1 %; Platelet Count (auto) 122 10^3/uL (140-450); Red Blood Cells 4.86 10^6/uL (4.5-5.90); Red Cell Distribution Width 21.6 % (11.8-14.3); White Blood Cell 5.1 10^3/uL (4.4-10.8)
[2025-01-18 07:13] LABS: Anion Gap 9 (5-15); Blood Urea Nitrogen 13 mg/dL (9-23); Calcium 9.9 mg/dL (8.7-10.4); Carbon Dioxide 25 mmol/L (20-31); Chloride 99 mmol/L (98-107); Potassium 4.4 mmol/L (3.5-5.1); Total Protein 7.5 g/dL (5.7-8.2)
[2025-01-18 07:16] LABS: Alanine Aminotransferase 64 U/L (7-40); Albumin 4.9 g/dL (3.2-4.8); Alkaline Phosphatase 120 U/L (46-116); Aspartate Aminotransferase 146 U/L (13-40); Bilirubin, Total 1.8 mg/dL (0.2-1.0); Glucose 125 mg/dL (74-106); Magnesium 1.5 mg/dL (1.6-2.6); Sodium 133 mmol/L (136-145)
[2025-01-18] MEDS: chlordiazePOXIDE HCL 25 MG CAP PO SCH (09:56)
[2025-01-18] MEDS: MAGNESIUM SULFATE 1GM/100ML 100 ML IV SCH ×2 (10:00→14:36)
--- NOTE | 2025-01-18 10:55 | DVHPN2 ---
Subjective Sleeping Liver functions are still high Magnesium 1.5 Total bilirubin is 1.8 Reviewed: H&P, Labs Changes from previous H/P or p: Changes Eyes: No Pain, No Vision change, No Conjunctivae inflammation, No Eyelid inflammation, No Other, No Redness ENT: No Ear pain, No Ear discharge, No Nose pain, No Nose discharge, No Nose congestion, No Mouth pain, No Mouth swelling, No Throat pain, No Throat swelling, No Other Cardiovascular: Chest Pain, Palpitations; No Orthopnea, No Paroxysmal Noc. Dyspnea, No Edema, No Lt Headedness, No Other Respiratory: No Cough, No Dry, No Shortness of breath, No SOB with excertion, No Wheezing, No Hemoptysis, No Pleuritic Pain, No Sputum, No Other Gastrointestinal: Nausea; No Vomiting, No Abdominal Pain, No Diarrhea, No Constipation, No Melena, No Hematochezia, No Other Genitourinary: No Dysuria, No Frequency, No Incontinence, No Hematuria, No Retention, No Other Musculoskeletal: No other, No neck pain, No shoulder pain, No arm pain, No back pain, No hand pain, No leg pain, No foot pain Skin: No Rash, No Lesions, No Jaundice, No Bruising, No Other Objective Vitals Vital Signs Date Time Temp Pulse Resp B/P (MAP) Pulse Ox O2 Delivery O2 Flow Rate FiO2 01/18/25 09:00 97.9 103 18 111/77 (88) 98 97.9 01/17/25 20:00 Room Air* 0 21 Intake/Output Intake and Output 01/18/25 07:00 Intake Total 1150.2 ml Balance 1150.2 ml Intake Oral 1100 ml IV Total 50.2 ml # Voids 2 # Bowel Movements 2 General Appearance: Alert, Oriented X3 Lungs: Clear to auscultation Cardiovascular: Regular rate, Normal S1, Normal S2 Abdomen: Normal bowel sounds, Soft Medications Current Medications Medications Dose Ordered Sig/[place] Route Start Time Stop Time Status Last Admin Dose Admin Lorazepam 1 mg Q8HP PRN IV 01/15/25 22:45 01/18/25 05:50 1 MG Thiamine HCl 100 mg DAILY IV 01/16/25 10:00 01/18/25 09:57 100 MG Folic Acid 1 mg/ Dextrose 50.2 ml @ 200.8 mls/ hr DAILY INJ 01/16/25 10:00 01/18/25 10:08 200.8 MLS/HR Atorvastatin Calcium 40 mg HS PO 01/16/25 22:00 01/17/25 21:26 40 MG Sertraline HCl 50 mg DAILY PO 01/16/25 10:00 01/18/25 09:56 50 MG Famotidine 20 mg DAILY IV 01/16/25 10:00 01/18/25 09:57 20 MG Diagnostic Test (Pha) 1 strip ACHS 01/16/25 07:00 01/18/25 05:46 1 STRIP Insulin Human Regular ACHS SC 01/16/25 07:00 01/17/25 21:28 2 UNITS Dextrose 50 ml UD PRN IV 01/15/25 22:45 Sodium Chloride 10 ml Q8HR IV 01/16/25 06:00 01/18/25 05:46 10 ML Acetaminophen/ Hydrocodone Bitart 1 tab Q4HP PRN PO 01/15/25 22:45 Ondansetron HCl 4 mg Q4HP PRN IV 01/15/25 22:45 Docusate Sodium 100 mg BIDPRN PRN PO 01/15/25 22:45 Acetaminophen 650 mg Q6HP PRN PO 01/15/25 22:45 Nitroglycerin 0.4 mg Q5MINP PRN SL 01/15/25 22:45 Morphine Sulfate 2 mg Q30M PRN IV 01/15/25 22:45 Chlordiazepoxide HCl 25 mg Q12HR PO 01/18/25 10:00 01/18/25 22:01 01/18/25 09:56 25 MG Chlordiazepoxide HCl 25 mg QAM PO 01/19/25 07:00 01/19/25 07:01 Magnesium Sulfate/ Dextrose 100 ml @ 100 mls/hr Q1HR IV 01/18/25 10:00 01/18/25 11:59 UNV Laboratory Results Laboratory Tests 01/18/25 06:18 Chemistry Test 01/18/25 06:18 Albumin 4.9 g/dL (3.2-4.8) H Calcium Level 9.9 mg/dL (8.7-10.4) Magnesium Level 1.5 mg/dL (1.6-2.6) L Total Protein 7.5 g/dL (5.7-8.2) LFT Test 01/18/25 06:18 Alanine Aminotransferase (ALT) 64 U/L (7-40) H Alkaline Phosphatase 120 U/L (46-116) H Aspartate Amino Transferase (AST) 146 U/L (13-40) H Total Bilirubin 1.8 mg/dL (0.2-1.0) H Assessment/Plan Assessment/Plan Acute chest pain, atypical most likely due to musculoskeletal pain Alcohol intoxication Alcohol withdrawal Thrombocytopenia Neutropenia Hypomagnesemia Alcoholic hepatitis PLAN: Librium Ativan prn Vitamins Folic acid Thiamine Full code Advanced directives discussed x 20 minutes The patient said he wants to go home, he feels better, upon further discussions, he became more nervous and was having more tremors I explained to him that he is not ready for discharge He said he wanted to go AMA 01/18/2025: Continue benzodiazepines as needed for the withdrawal symptoms Continue multivitamins Hypomagnesemia: Replace magnesium Alcoholic hepatitis: Monitor the liver functions Plan discussed with: Patient My Orders Orders - BLAYNE ORELLANA MD Procedure Category Date Status Time Magnesium Sulfate PHA 01/18/25 Logged 1gm/100ml 10:00 Date of Service: Jan 18, 2025 Billing Provider: BLAYNE ORELLANA MD Common Visit Codes: [id number] INP/OBS CARE(HIGH) BLAYNE ORELLANA MD Jan 18, 2025 10:55
[2025-01-19 01:00] VITALS: BP 106/76; PULSE 104; RESP 18; TEMP 98.8; O2SAT 97
[2025-01-19 05:00] VITALS: BP 113/76; PULSE 91; RESP 20; TEMP 99; O2SAT 99
[2025-01-19] MEDS: chlordiazePOXIDE HCL 25 MG CAP PO SCH (06:21)
[2025-01-19 06:39] LABS: Anion Gap 10 (5-15); BUN/Creatinine Ratio 18.4 (10.0-20.0); Blood Urea Nitrogen 19 mg/dL (9-23); Calcium 9.6 mg/dL (8.7-10.4); Carbon Dioxide 25 mmol/L (20-31); Chloride 99 mmol/L (98-107); Magnesium 1.9 mg/dL (1.6-2.6); Potassium 3.5 mmol/L (3.5-5.1); Total Protein 7.6 g/dL (5.7-8.2)
[2025-01-19 06:42] LABS: Alanine Aminotransferase 79 U/L (7-40); Albumin 4.9 g/dL (3.2-4.8); Alkaline Phosphatase 116 U/L (46-116); Aspartate Aminotransferase 139 U/L (13-40); Bilirubin, Total 1.4 mg/dL (0.2-1.0); Eosinophils # (auto) 0.1 10 ^3/uL (0-0.8); Glucose 136 mg/dL (74-106); Red Cell Distribution Width 21.3 % (11.8-14.3); Sodium 134 mmol/L (136-145)
[2025-01-19 06:45] LABS: Basophils # (auto) 0 10 ^3/uL (0-0.2); Basophils % (auto) 0.8 % (0.0-2.0); Eosinophils % (auto) 2.5 % (0.0-7.0); Hematocrit 34.9 % (41.0-53.0); Lymphocytes # (auto) 1.7 10 ^3/uL (0.4-5.4); Mean Corpuscular Hemoglobin 22.8 pg (28.0-32.0); Mean Corpuscular Hgb Conc. 31.6 g/dL (32.0-36.0); Mean Corpuscular Volume 72.1 fL (80.0-100.0); Monocytes # (auto) 0.7 10 ^3/uL (0-1.3); Monocytes % (auto) 12.3 % (0.0-12.0); Neutrophils # (auto) 2.9 10 ^3/uL (1.6-8.6); Neutrophils % (auto) 53.4 % (37.0-80.0); Nucleated Red Blood Cells % 0.1 %; Platelet Count (auto) 119 10^3/uL (140-450); Red Blood Cells 4.84 10^6/uL (4.5-5.90); White Blood Cell 5.4 10^3/uL (4.4-10.8)
--- NOTE | 2025-01-19 07:29 | ECG ---
[facility] Test Date: 2025-01-15 Test Time: 20:15:05 Pat Name: GENESIS HOUSE Department: ED Room: [facility]5T A Gender: M Registered Nurse Ambulatory: : 1985 Requested By: SHELBIE VALDEZ Order Number: [id number] Reading MD: Kojo Herr Measurements Intervals [place] Rate: 107 P: 58 CT: 117 QRS: 77 QRSD: 87 T: 0 QT: 337 QTc: 450 Interpretive Statements Sinus tachycardia Electronically Signed On 01-19-2025 14:43:04 PDT by Kojo Herr Please click the below link to view image of tracing.
--- NOTE | 2025-01-19 07:29 | ECG ---
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
[2025-01-19 08:00] VITALS: PULSE 91
[2025-01-19 09:00] VITALS: BP 112/78; PULSE 103; RESP 16; TEMP 98.7; O2SAT 99
[2025-01-19 12:04] VITALS: BP 112/78; PULSE 103; RESP 16; TEMP 98.7; O2SAT 99
--- NOTE | 2025-01-19 20:59 | DVHDS2 ---
Discharge Summary Date of Admission January 15, 2025 at 22:31 Date of Discharge: Jan 19, 2025 Labs/Diagnostic Data: Laboratory Results Test 01/19/25 10:48 01/19/25 04:50 01/16/25 05:10 01/15/25 22:14 POC Glucose 167 mg/dl (70-106) White Blood Count 5.4 10^3/uL (4.4-10.8) Red Blood Count 4.84 10^6/uL (4.5-5.90) Hemoglobin 11.0 g/dL (13.5-17.5) Hematocrit 34.9 % (41.0-53.0) Mean Corpuscular Volume 72.1 fL (80.0-100.0) Mean Corpuscular Hemoglobin 22.8 pg (28.0-32.0) Mean Corpuscular Hemoglobin Concent 31.6 g/dL (32.0-36.0) Red Cell Distribution Width 21.3 % (11.8-14.3) Platelet Count 119 10^3/uL (140-450) Mean Platelet Volume 8.9 fL (6.9-10.8) Neutrophils (%) (Auto) 53.4 % (37.0-80.0) Lymphocytes (%) (Auto) 31.0 % (10.0-50.0) Monocytes (%) (Auto) 12.3 % (0.0-12.0) Eosinophils (%) (Auto) 2.5 % (0.0-7.0) Basophils (%) (Auto) 0.8 % (0.0-2.0) Neutrophils # (Auto) 2.9 10 ^3/uL (1.6-8.6) Lymphocytes # (Auto) 1.7 10 ^3/uL (0.4-5.4) Monocytes # (Auto) 0.7 10 ^3/uL (0-1.3) Eosinophils # (Auto) 0.1 10 ^3/uL (0-0.8) Basophils # (Auto) 0 10 ^3/uL (0-0.2) Nucleated Red Blood Cells 0.1 % Sodium Level 134 mmol/L (136-145) Potassium Level 3.5 mmol/L (3.5-5.1) Chloride Level 99 mmol/L (98-107) Carbon Dioxide Level 25 mmol/L (20-31) Anion Gap 10 (5-15) Blood Urea Nitrogen 19 mg/dL (9-23) Creatinine 1.03 mg/dL (0.700-1.30) Glomerular Filtration Rate Calc 94 mL/min (>90) BUN/Creatinine Ratio 18.4 (10.0-20.0) Serum Glucose 136 mg/dL (74-106) Calcium Level 9.6 mg/dL (8.7-10.4) Magnesium Level 1.9 mg/dL (1.6-2.6) Total Bilirubin 1.4 mg/dL (0.2-1.0) Aspartate Amino Transferase (AST) 139 U/L (13-40) Alanine Aminotransferase (ALT) 79 U/L (7-40) Alkaline Phosphatase 116 U/L (46-116) Total Protein 7.6 g/dL (5.7-8.2) Albumin 4.9 g/dL (3.2-4.8) Hepatitis B Surface Antigen Negative (Negative) Hepatitis C Antibody Negative (Negative) Troponin I High Sensitivity 8 ng/L (</=54) Test 01/15/25 19:06 Plasma/Serum Blood Alcohol 469.6 mg/dL (<10) Other Laboratory Tests 01/19/25 04:50 Brief Hx & Hospital Course: Final diagnoses: Acute chest pain, atypical most likely due to musculoskeletal pain Alcohol intoxication Alcohol withdrawal Thrombocytopenia Neutropenia Hypomagnesemia Alcoholic hepatitis Type 2 diabetes Hospital course: 39-year-old male who was admitted due to alcohol intoxication and chest pain and then withdrawal His liver enzymes were elevated He had significant tremors and anxiety He was treated with benzodiazepines and multivitamins Very slowly improved and became less tremors and less anxious Today he was asymptomatic and therefore he will be discharged home Continue same home medications Condition at Discharge: Stable Final Diagnosis/Problems List Acute chest pain, atypical most likely due to musculoskeletal pain Alcohol intoxication Alcohol withdrawal Thrombocytopenia Neutropenia Hypomagnesemia Alcoholic hepatitis Discharge Disposition: Home SNF Discharge Will this Physician continue t: No Discharge Instruct/Medications Diet: Consistent carbohydrate Activity: No Restrictions, As Tolerated Follow Up/Referral: PCP ANABELL Medications: Same home meds Discharge Statement: "Patient was advised to return to the ER or call 911 if any headaches, dizziness, shortness of breath, chest pain, abdominal pain, bleeding, fevers, or worsening of medical condition. Patient was counseled about treatment plan, medications, possible side effects, patientverbalized understanding. All questions were answered to the best of my ability. This discharge took greater then 30 minutes in planning, reviewing documentation, counseling the patient, and discussing with other team members." ASSESSMENT ASSESSMENT Assessment Acute chest pain, atypical most likely due to musculoskeletal pain Alcohol intoxication Alcohol withdrawal Thrombocytopenia Neutropenia Hypomagnesemia Alcoholic hepatitis Date of Service: Jan 19, 2025 Billing Provider: BLAYNE ORELLANA MD Common Visit Codes: 46395-QIG/OBS DISCH DAY >30min BLAYNE ORELLANA MD Jan 19, 2025 20:59
== END 2025-01-19 12:40 | disposition home or self-care (01) | DRG 203 ==
LOC: EDBD 18:36 → ER 18:40 → OVERFLOW 22:31 → TELE-WESTW 23:54
PROVIDERS: ADMIT Internal Medicine Geriatric Medicine; ATTEND Internal Medicine Geriatric Medicine
DX: R07.89 Other chest pain (principal); D69.6 Thrombocytopenia, unspecified; K70.10 Alcoholic hepatitis without ascites; D70.9 Neutropenia, unspecified; E11.9 Type 2 diabetes mellitus without complications; E83.42 Hypomagnesemia; F41.9 Anxiety disorder, unspecified; F10.929 Alcohol use, unspecified with intoxication, unspecified; F10.939 Alcohol use, unspecified with withdrawal, unspecified; Z79.84 Long term (current) use of oral hypoglycemic drugs; Z79.899 Other long term (current) drug therapy; Y90.8 Blood alcohol level of 240 mg/100 ml or more
CPT/HCPCS: 36415; 71045; 80048; 80053; 80320; 82962; 83735; 84484; 85025; 86803; 87340; 93005; 96372; 96374; 96375; 99291; G0378; J1815; J3490; J7060

== ENCOUNTER 2025-02-01 22:48 | Emergency (ER) | payer MEDICAID ==
[~2025-02-01] VITALS: Ht 177.8 cm; Wt 63.5 kg
[~2025-02-01 22:48] MED LIST changes: -ATOR40TA52 PO; -SERT-206 PO
--- NOTE | 2025-02-01 23:21 | ED.PDOC ---
History of Present Illness HPI Comments 39 y/o M, with a history of DM and hypotension, is BIBA for c/o nausea and vomiting. Per EMS report, patient called after developing symptoms following consumption of some fruits and juices and taking his Metformin medication. Admitted to drinking 4x shots of vodka, earlier. He was noted to have been tremulous and tachycardic on scene, with an initial blood glucose of 270. At time of assessment, patient reports on symptoms subsiding on his own. Blood glucose, here, was 222. Time Seen by MD: 23:10 Primary Care Provider: LETICIA Reviewed Notes: Nurses Notes, [employer] Fundraiser Notes, Medications, Allergies Allergies: Coded Allergies: NO KNOWN ALLERGIES (Unverified , 02/05/22) Home Meds Active Scripts Ondansetron Odt 4MG Tab (ZOFRAN PO) 4 Mg Tb, 4 MG PO Q4HP PRN for 5 Days, #25 TAB ODT TAB-DISSOLVE IN MOUTH, THEN SWALLOW [facility] 12/02/24 Pantoprazole Sodium Sesquihydr (Pantoprazole Sodium) 40 Mg Tab, 40 MG PO DAILY for 90 Days, #90 TAB [facility] 12/02/24 Ferrous Sulfate (Ferrous Sulfate) 325 Mg Tab, 325 MG PO DAILY for 90 Days, #90 TAB [facility] 12/02/24 Thiamine Hcl (VITAMIN B-1) 100 Mg Tb, 100 MG PO DAILY for 90 Days, #90 TAB [facility] 12/02/24 Folic Acid (Folic Acid) 1 Mg Tab, 1 MG PO DAILY for 90 Days, #90 TAB [facility] 12/02/24 Reported Medications Hydroxyzine Hcl (Hydroxyzine Hcl) 25 Mg Tab, 1 TAB PO DAILY for 30 Days, #30 12/01/24 Metformin Hydrochloride (METFORMIN HCL ER) 1,000 Mg Tab, 1 TAB PO DAILY for 90 Days, #90 12/01/24 Information Source: Patient, Emergency Med Personnel Mode of Arrival: EMS Severity: Moderate Timing: Hours Duration: Since onset Prehospital treatment: 12 Lead EKG, 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, 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 Past Medical History PAST MEDICAL HISTORY: DM, Hypotension Surgical History: Denies all surgeries Family History Family History: Reviewed,noncontributory to illness Social History Smoker: Non-Smoker Alcohol: Heavy Drugs: Marijuana Lives In: Home All Other Systems: Reviewed and Negative (Comprehensive systems review obtained and negative except for what is stated in the HPI) Physical Exam General Appearance: No Apparent Distress, Normal HEENT: Normal ENT Inspection, Pharynx Normal, TMs Normal Neck: Full Range of Motion, Non-Tender, Normal, Normal Inspection Respiratory: Chest Non-Tender, Lungs Clear, No Accessory Muscle Use, No Respiratory Distress, Normal Breath Sounds Cardiovascular: No Edema, No JVD, No Murmur, No Gallop, Normal Peripheral Pulses, Regular Rate/Rhythm Breast Exam: Deferred Gastrointestinal: No Organomegaly, Non Tender, No Pulsatile Mass, Normal Bowel Sounds, Soft Genitalia: Deferred Pelvic: Deferred Rectal: Deferred Extremities: No calf tenderness, Normal capillary refill, Normal inspection, Normal range of motion, Non-tender, No pedal edema Musculoskeletal : Apperance: Normal Neurologic: Alert, white spooler II-XII nml as Tested, No Motor Deficits, Normal Mood, No Sensory Deficits, Other (Mild anxious affect ) Cerebellar Function: Normal Reflexes: Normal Skin: Dry, Normal Color, Warm Lymphatic: No Adenopathy Was a procedure done? Was a procedure done?: No Differential Dx Considerations may include: viral syndrome, hyperglycemia, electrolyte imbalance, dehydration, adverse medication affect, alcohol intoxication, among others X-Ray, Labs, Meds, VS Vital Signs Date Time Temp Pulse Resp B/P (MAP) Pulse Ox O2 Delivery O2 Flow Rate FiO2 02/01/25 23:40 97 Room Air* 0 21 02/01/25 23:36 98.4 102 20 138/91 (107) 98 98.4 Current Medications Medications (Trade) Dose Ordered Sig/[place] Route Start Time Stop Time Status Last Admin Ondansetron HCl (Zofran Po) 4 mg ONCE ONCE PO 02/01/25 23:15 02/01/25 23:16 DC 02/01/25 23:33 Time of 1ST Reevaluation: 23:20 Reevaluation 1ST: Improved Patient Education/Counseling: Need For Follow Up Family Education/Counseling: No Family Present SEPSIS Sepsis Screen Orders/Vitals/Labs Vital Signs Date Time Temp Pulse Resp B/P (MAP) Pulse Ox O2 Delivery O2 Flow Rate FiO2 02/01/25 23:40 97 Room Air* 0 21 02/01/25 23:36 98.4 102 20 138/91 (107) 98 98.4 Medications Medications Dose Ordered Sig/[place] Route Start Time Stop Time Status Last Admin Dose Admin Ondansetron HCl 4 mg ONCE ONCE PO 02/01/25 23:15 02/01/25 23:16 DC 02/01/25 23:33 Departure 1 Departure Time of Disposition: 01:00 Impression: Primary Impression: Alcohol intoxication Additional Impression: Alcohol abuse Disposition: HOME / SELF CARE / HOMELESS Condition: Stable Additional Instructions: Follow up with your Primary Physician Return to the Emergency Department for any worsening symptoms or concerns Discharged With: Self Critical Care Note Critical Care Time?: No Stability Stability form required: No Heart Score Heart Score: Heart Score Response (Comments) Value History N/A 0 EKG N/A 0 Age N/A 0 Risk Factors N/A 0 Troponin N/A 0 Total 0 I personally scribed for ANGELLA LEE MD ([email or web address]) on 02/01/25 at 23:21. Electronically submitted by Mukund Carlson ([email or web address]). I personally scribed for ANGELLA LEE MD ([email or web address]) on 02/01/25 at 23:23. Electronically submitted by Mukund Carlson ([email or web address]). ANGELLA LEE MD Feb 01, 2025 23:21
[2025-02-01] MEDS: ONDANSETRON ODT 4 MG TAB PO ONE (23:33)
[2025-02-01 23:36] VITALS: BP 138/91; PULSE 102; RESP 20; TEMP 98.4
[2025-02-01 23:40] VITALS: O2SAT 97
== END 2025-02-01 23:55 | disposition home or self-care (01) ==
LOC: EDBD 22:48 → ER 22:48
DX: F10.129 Alcohol abuse with intoxication, unspecified (principal); F12.90 Cannabis use, unspecified, uncomplicated; E11.9 Type 2 diabetes mellitus without complications; Z79.84 Long term (current) use of oral hypoglycemic drugs; Z79.899 Other long term (current) drug therapy; Y90.9 Presence of alcohol in blood, level not specified
CPT/HCPCS: 99283; Q0162